=== PATIENT | female | born 1950 | race Caucasian/White ===

== ENCOUNTER → 2017-12-01 10:11 | Outpatient (CLI) | payer MEDICARE, OTHER, SELFPAY ==
--- NOTE | 2017-12-01 10:18 | NVE_ITS ---
Venous Exam Indications: 729.5 Pain in limb. IMPRESSIONS 1. There is no evidence of significant Reflux. 2. Deep vein thrombosis involving the Left gastrocnemius Left lower extremity venous duplex evaluation. Doppler flow study including spectral analysis, color and potter scale imaging. Location: Vascular laboratory. Patient status: Outpatient. CRITICAL FINDINGS - Reported to: IKER Hollis back and verified. - 12/01/17 - 1050 - DVT - . Tables: Venous flow and imaging: + + + + Location Overall Flow properties + + + + Left common femoral Patent Normal phasicity; spontaneous; normal augmentation; compressible + + + + Left saphenofemoral Patent Compressible junction + + + + Left profunda femoral Patent Compressible + + + + Left femoral Patent Normal phasicity; spontaneous; normal augmentation; compressible + + + + Left greater saphenous Patent Normal phasicity; spontaneous; normal augmentation; compressible + + + + Left popliteal Patent Normal phasicity; spontaneous; normal augmentation; compressible + + + + Left posterior tibial Patent Compressible + + + + Left peroneal Patent Compressible + + + + Left gastrocnemius Partially occluded Partially compressible + + + + Left soleal Patent Compressible + + + + (Report amended ) Electronically signed by: Reji Crews [id number]
== END ==
PROVIDERS: PCP Family Medicine; Visit Provider Family Medicine
DX: M79.605 Pain in left leg (principal)
CPT/HCPCS: 93971

== ENCOUNTER → 2017-12-30 12:18 | Outpatient (CLI) | payer MEDICARE, OTHER, SELFPAY ==
[2017-12-30 12:22] LABS: Microscopic, Urine URINE MICROSCOPIC (MICROSCOPIC)
[2017-12-30 12:33] LABS: Appearance,Urine CLEAR (Clear); Bilirubin,Urine Negative (Negative); Blood, Urine TRACE-I (Negative); Color,Urine YELLOW (Yellow); Glucose,Urine (UA) Negative (Negative); Ketones,Urine Negative (Negative); Leukocyte Esterase,Urine TRACE (Negative); Nitrate,Urine POSITIVE (Negative); Protein,Urine Negative (Negative); Specific Gravity, Urine 1.015 (1.005-1.030); Urobilinogen,Urine 0.2 EU/dl (0.2)
[2017-12-30 12:40] LABS: Bacteria,Urine 2+ /lpf
== END ==
PROVIDERS: Visit Provider Family Medicine
DX: R35.0 Frequency of micturition (principal)
CPT/HCPCS: 81001; 87086

== ENCOUNTER → 2018-01-06 10:45 | Outpatient (CLI) | payer MEDICARE, OTHER, SELFPAY ==
--- NOTE | 2018-01-06 | NVE_ITS ---
Venous Exam IMPRESSIONS 1. No evidence of deep or superficial vein thrombosis involving the left lower extremity 2. Gastrocnemius DVT seen in [facility] 12/01/17 has resolved. History: PMH: Deep vein thrombosis. Deep vein thrombosis. Patient had a DVT in 12/01/17 in [facility] gastrocnemius. Today's study is a followup. Medications: Heparin daily. Left lower extremity venous duplex evaluation. Doppler flow study including spectral analysis, color and potter scale imaging. Location: Vascular laboratory. Patient status: Outpatient. Tables: Venous flow and imaging: + +-------+ + Location Overall Flow properties + +-------+ + Left common femoral Patent Normal phasicity; spontaneous; normal augmentation; compressible + +-------+ + Left saphenofemoral junction Patent Compressible + +-------+ + Left profunda femoral Patent Compressible + +-------+ + Left femoral Patent Normal phasicity; spontaneous; normal augmentation; compressible + +-------+ + Left greater saphenous Patent Normal phasicity; spontaneous; normal augmentation; compressible + +-------+ + Left popliteal Patent Normal phasicity; spontaneous; normal augmentation; compressible + +-------+ + Left posterior tibial Patent Compressible + +-------+ + Left peroneal Patent Compressible + +-------+ + Left gastrocnemius Patent Compressible + +-------+ + Left soleal Patent Compressible + +-------+ + (Report amended ) Electronically signed by: Reji Crews [id number]
== END ==
PROVIDERS: PCP Family Medicine; Visit Provider Internal Medicine
DX: M79.605 Pain in left leg (principal)
CPT/HCPCS: 93971

== ENCOUNTER → 2018-01-30 10:20 | Outpatient (CLI) | payer MEDICARE, OTHER, SELFPAY ==
--- NOTE | 2018-01-30 10:23 | XR_ITS ---
XR femur RT 2V CLINICAL INDICATION: Follow-up fracture ITS.REASON: S/P FEMUR FRACTURE/ ORDERING PHYSICIAN: Masoud Carreon MD PATIENT AGE: 67 years Comparison: 01/09/2016 FINDINGS: Intramedullary brisa remains in place. There is fracture of the distal to screws stabilizing the brisa. This was demonstrated on 01/21/2018 exam the right appears to have moved distally within the femur compared to the exam of 01/09/2016 probably stable compared to 01/21/2018. The distal most screw is x 11 mm. Femur fracture is showing some signs of healing with some callus formation. Fracture line however is still visible. There is 11 mm medial and 6 mm dorsal displacement of the distal fracture fragment. IMPRESSION: Status post placement of an intramedullary brisa stabilizing a proximal femoral healing shaft fracture with fracture of the 2 stabilizing screws distally within the right as described above
== END ==
PROVIDERS: PCP Family Medicine; Visit Provider Orthopaedic Surgery
DX: T85.848A Pain due to other internal prosthetic devices, implants and grafts, initial encounter (principal)
CPT/HCPCS: 73552

== ENCOUNTER → 2018-03-19 14:29 | Outpatient (CLI) | payer MEDICARE, OTHER, SELFPAY ==
--- NOTE | 2018-03-19 14:30 | CT_ITS ---
CT femur RT wo con INDICATION: Follow-up femur fracture, nonunion ITS.REASON: rt femur non union ORDERING PHYSICIAN: Masoud Carreon MD PATIENT AGE: 67 years COMPARISON: 01/30/2018 TECHNIQUE: Axial images are obtained without contrast. Sagittal and coronal reformatted images are reviewed as well. All CT scans at the facility use one or more dose reduction, viz: automated exposure control, ma/kV adjustment per patient size (including targeted exams where dose is matched to indication, i.e. head), or iterative reconstruction technique. FINDINGS: Axial images are obtained of the right femur. There has been placement of intramedullary brisa stabilizing a mid to proximal femur shaft fracture. The brisa has migrated distally with fracture of the 2 distal transverse screws. The most distal screw fragments by approximately 1 cm. The intramedullary brisa appears intact The 2 proximal screws within the intramedullary brisa have an unremarkable appearance. There is persistent fracture line noted at the fracture site. Fracture margins are well-circumscribed. No bridging callus formation is evident. There is 7 mm medial and posterior displacement of the distal fracture fragment. There is fracture of the 2 distal transverse screws. The most distal screw fragments are x 7 mm. The lateral screw fragment is distracted away from the cortex laterally x 5 mm. The distal aspect of the intramedullary brisa rests just at the subcortical region at the intercondylar area of the distal femur and does not appear to have disrupted through the cortex. No soft tissue masses or abnormal fluid collection. Incidental note is made of rectal prolapse. IMPRESSION: 1. There does NOT appear to be bony union of the proximal to mid shaft femur fracture. The distal fracture fragment is displaced medially and posteriorly x 7 mm 2. The intramedullary brisa has migrated distally with fracture of the 2 distal transverse screws. Screws are by approximately 7 mm. 3. The distal most aspect of the intramedullary brisa is just deep to the subcortical region of the intercondylar area of the distal femur and does NOT appear to have disrupted into the joint
== END ==
PROVIDERS: PCP Family Medicine; Visit Provider Orthopaedic Surgery
DX: T85.848A Pain due to other internal prosthetic devices, implants and grafts, initial encounter (principal)
CPT/HCPCS: 73700

== ENCOUNTER 2018-04-07 09:00 | Outpatient (RCR) | payer MEDICARE, OTHER, SELFPAY | END 2018-04-07 09:01 | disposition home or self-care (01) | LOC: PT 09:00 | PROVIDERS: PCP Family Medicine; Visit Provider Orthopaedic Surgery | DX: S72.301A Unspecified fracture of shaft of right femur, initial encounter for closed fracture (principal) | CPT/HCPCS: 97010; 97014; 97033; 97035; 97110; 97140; 97163; G0283 ==

== ENCOUNTER → 2018-05-26 09:39 | Outpatient (POV) | payer MEDICARE, OTHER, SELFPAY | PROVIDERS: PCP Family Medicine; Visit Provider Dermatology | DX: Z00.00 Encounter for general adult medical examination without abnormal findings (principal) ==

== ENCOUNTER 2018-07-07 10:00 | Outpatient (RCR) | payer MEDICARE, OTHER, SELFPAY | END 2018-07-07 10:05 | disposition home or self-care (01) | LOC: PT 10:00 | PROVIDERS: Visit Provider Physician Assistant Medical | DX: S72.91XK Unspecified fracture of right femur, subsequent encounter for closed fracture with nonunion (principal) | CPT/HCPCS: 97010; 97014; 97110; 97163; G0283 ==

== ENCOUNTER → 2018-07-10 09:32 | Outpatient (CLI) | payer MEDICARE, OTHER, SELFPAY ==
--- NOTE | 2018-07-10 09:35 | MM_ITS ---
MM Dig screening mamm BI w/CAD CAD Screening COMPARISON: Digital mammograms with CAD 06/20/2017 and 06/18/2016 INDICATION: There is a history of breast cancer patient maternal grandmother. TECHNIQUE: Standard CC and MLO images were obtained. R2 CAD reviewed. FINDINGS: Moderate heterogenic fibroglandular densities are seen in the central portions of both breasts. There is very slight inversion of the nipple right breast but this was seen previously and is stable. There are few scattered benign-appearing calcifications in each breast. There is no suspicious lesion and there are no suspicious microcalcifications. IMPRESSION: Stable exam with no suspicious lesion seen BI-RADS Category: 2 Benign Finding(s) RECOMMENDED FOLLOW-UP: 1YR - 1 YEAR FOLLOW-UP (A letter has been sent to the patient regarding results of the study.)
== END ==
PROVIDERS: PCP Family Medicine; Visit Provider Nurse Practitioner Obstetrics & Gynecology
DX: Z12.31 Encounter for screening mammogram for malignant neoplasm of breast (principal)
CPT/HCPCS: 77067

== ENCOUNTER → 2018-11-23 14:29 | Outpatient (CLI) | payer MEDICARE, OTHER, SELFPAY ==
--- NOTE | 2018-11-23 14:35 | XR_ITS ---
XR knee RT 3V HISTORY: ITS.REASON: RT KNEE PAIN ORDERING PHYSICIAN: Guillaume Dietz MD PATIENT AGE: 68 years COMPARISON: 01/21/2018 FINDINGS: There is an intramedullary brisa in place. There has been interval removal of the lateral aspect of the screws within the distal intramedullary brisa. The intramedullary brisa have or appears to have drifted more distally now projecting past the articular surface of the intercondylar notch. No acute fracture or dislocation. The joint spaces are well-preserved. There is a lucency in the proximal tibia which may be due to prior surgery. IMPRESSION: Postsurgical changes with removal of the lateral screws of the intramedullary brisa. The medial portion of the screws remain in place. The intramedullary brisa appears to have shifted more distally with the tip projecting in the knee joint itself at the intercondylar groove
== END ==
PROVIDERS: PCP Family Medicine; Visit Provider Family Medicine
DX: M25.561 Pain in right knee (principal)
CPT/HCPCS: 73562

== ENCOUNTER → 2019-01-12 09:23 | Outpatient (POV) | payer MEDICARE, OTHER, SELFPAY | PROVIDERS: Visit Provider Dermatology | DX: Z00.00 Encounter for general adult medical examination without abnormal findings (principal) ==

== ENCOUNTER 2019-01-27 09:00 | Outpatient (RCR) | payer MEDICARE, OTHER, SELFPAY | END 2019-01-27 09:05 | disposition home or self-care (01) | LOC: PT 09:00 | PROVIDERS: Visit Provider Orthopaedic Surgery Orthopaedic Trauma | DX: S72.90XA Unspecified fracture of unspecified femur, initial encounter for closed fracture (principal) | CPT/HCPCS: 97010; 97014; 97110; 97140; 97163; G0283 ==

== ENCOUNTER 2019-04-25 19:20 | Inpatient (IN) ==
[2019-04-25 19:47] LABS: Lymphocytes # 1.3 K/mm3 (0.7-4.5); Monocytes # 0.7 K/mm3 (0.1-1.0)
[2019-04-25 19:52] LABS: Basophils % 0.3 % (0.1-2.0); Eosinophils % 0.3 % (0.1-12.0); Lymphocytes % 11.1 % (10-50); Mean Corpuscular HGB Conc 30.8 g/dL (31.8-35.4); Mean Corpuscular Volume 94.6 fl (81-99); Monocytes % 6.3 % (1.7-9.3); Neutrophils # 9.6 K/mm3 (1.8-7.8); Neutrophils % 82.1 % (37.0-80.0); Platelet Count 265 K/mm3 (142-424); Red Blood Count 2.53 M/mm3 (4.20-5.40); Red Cell Distribution Width 14.6 % (11.5-17.5); White Blood Count 11.7 K/mm3 (4.8-10.8)
[2019-04-25 19:58] LABS: INR 1.26 (0.9-1.1)
--- NOTE | 2019-04-25 19:58 | Emergency Department Note ---
ED Disposition Clinical Impression: Atypical chest pain, Blood loss anemia Disposition: Still a Patient Condition on Discharge: Fair Additional Instructions: care transferred to Dr. Garcia at end of shift Referrals: Guillaume Dietz MD [Primary Care Provider] - Time of Disposition: 20:09 - Critical Care Critical Care Time: No Attestation: On 04/25/19, the high probability of a clinically significant, sudden or life threatening deterioration of the following system(s) required my full and direct attention, intervention and personal management. The time I documented below is in addition to time spent performing reported procedures but includes the following listed in this critical care notation. Medical Decision Making - Medical Records Medical records reviewed: Yes: I reviewed the patient's medical records. - [place] Inquiry Pt receiving controlled substance: No [place] was queried for this patient: No Vital Signs: 04/25/19 19:27 Temperature 98.0 F Temperature Source Oral Pulse Rate [Right] 88 Respiratory Rate 16 Blood Pressure [Right Arm] 134/63 Blood Pressure Mean [Right Arm] 86 Blood Pressure Source [Right Arm] Automatic Cuff Blood Pressure Position [Right Arm] Supine 02 Sat by Pulse Oximetry 97 Oxygen Delivery Method Room Air - Lab Data Lab results reviewed: Yes: I reviewed the patient's lab results. Lab Results 04/25/19 19:35: WBC 11.7 H, RBC 2.53 L, Hgb 7.4 L*, Hct 24.0 L, MCV 94.6, MCH 29.2, MCHC 30.8 L, RDW 14.6, Plt Count 265, MPV 9.0, Neut % (Auto) 82.1 H, Lymph % (Auto) 11.1, [place] % (Auto) 6.3, Eos % (Auto) 0.3, Baso % (Auto) 0.3, Neut # (Auto) 9.6 H, Lymph # (Auto) 1.3, [place] # (Auto) 0.7, Eos # (Auto) 0.0, Baso # (Auto) 0.0 Result diagrams: 04/25/19 19:35 Orders (Tests/Meds): ED MEDICATIONS Generic Name Dose Route Start Last Admin Trade Name Freq PRN Reason Stop Dose Admin Sodium Chloride 1,000 mls @ 999 mls/hr 04/25/19 19:45 04/25/19 19:49 Sod Chlor 0.9% 1000ml Bag IV 04/25/19 20:45 999 mls/hr .Q1H1M TROY Administration Sodium Chloride 8 ml 04/25/19 19:37 04/25/19 19:49 Sodium Chloride 0.9% 10ml Vial IV 05/25/19 19:36 8 ml NEEDED PRN Administration dilute pepcid Discontinued Medications Generic Name Dose Route Start Last Admin Trade Name Freq PRN Reason Stop Dose Admin Famotidine 20 mg 04/25/19 19:37 04/25/19 19:48 Pepcid 20mg/2ml Vial IV 04/25/19 19:38 20 mg ONCE ONE Administration Metoclopramide HCl 10 mg 04/25/19 19:37 04/25/19 19:48 Reglan 10mg/2ml Vial IVP 04/25/19 19:38 10 mg ONCE ONE Administration Ondansetron HCl 4 mg 04/25/19 19:37 04/25/19 19:48 Zofran 4mg/2ml Vial IV 04/25/19 19:38 4 mg ONCE ONE Administration ORDERS Category Date Time Status Chest XR 2 view (NOT portable) [XR chest 2V] Stat Exams 04/25/19 19:58 Ordered Basic Metabolic Panel Stat Lab 04/25/19 19:35 Received PT INR [Prothrombin Time INR] Stat Lab 04/25/19 19:35 Received Rapid Strep Scrn Group A [Strep Scrn Group A (Rapid)] Lab 04/25/19 19:50 Received Stat Troponin I Stat Lab 04/25/19 19:35 Received Chest Pain HPI - General Chief Complaint: Chest Pain Stated Complaint: Surg Chest Burning, Time Seen by Provider: 04/25/19 19:50 Mode of Arrival: Ambulatory Limitations: No Limitations Description of Symptoms (Recalled from ER Triage Doc. by RN): Pt states she has burning in her chest radiating to throat, dc'd from yesterday from surgical procedure to right leg - History of Present Illness HPI narrative: Pt had surgery on right leg at on Friday to remove all hardware from surgery done 4 years ago and new hardware put back in. She has been on Warfarin for about 1 1/2 years for blood clots in legs...never told she had PEs Now with some burning sensation in chest and concerned her Blood count maybe low but no histoyr of excessive bleeding and no history of PE's Onset (ago): day(s) Duration: constant Activity at onset: during rest Pain location: substernal (burning type of pain) - Related Data Home Medications Medication Instructions Recorded Confirmed calcium [id number] 1 tab PO DAILY 12/31/17 04/25/19 [id number] 250 mg calcium-500 unit tablet cholecalciferol (vitamin D3) 2,000 2,000 unit PO ONCE 12/31/17 04/25/19 unit capsule diclofenac sodium 75 mg 75 mg PO DAILY 90 Days 12/31/17 04/25/19 tablet,delayed release glucosamine sulfate 500 mg tablet 1,000 mg PO BID 12/31/17 04/25/19 levothyroxine 25 mcg tablet 25 mcg PO DAILY 90 Days tab 12/31/17 04/25/19 melatonin 10 mg capsule 10 mg PO HS PRN 12/31/17 04/25/19 multivitamin with minerals tablet 1 tab PO ONCE 12/31/17 04/25/19 pravastatin 40 mg tablet 40 mg PO DAILY 90 Days tab 12/31/17 04/25/19 propranolol 80 mg tablet 40 mg PO DAILY 30 Days tab 12/31/17 04/25/19 vitamin B complex tablet 1 tab PO QAM 12/31/17 04/25/19 warfarin 5 mg tablet 5 mg PO DAILY 30 Days tab 12/31/17 04/25/19 diclofenac 1 % topical gel 4 g TOPICAL QID 02/01/19 04/25/19 Enoxaparin Sodium [Lovenox 75 mg SQ DAILY 03/23/19 04/25/19 150mg/mL syringe] Previous Rx's Medication Instructions Recorded urea 39 % topical cream 39 % TOPICAL BID #227 g 02/01/19 Allergies Allergy/AdvReac Type Severity Reaction Status Date / Time morphine [MORPHINE] Allergy Mild Verified 03/29/19 07:54 Sulfa (Sulfonamide Allergy Mild Verified 03/29/19 07:54 Antibiotics) [SULFA (SULFONAMIDE ANTIBIOTICS)] PCN Allergy Mild Uncoded 02/16/18 09:[address] [facility] History - Hepatitis A Screen Drug use history?: No High risk sexual behaviors?: No History of sexually transmitted infection?: No Currently employed?: No Childcare worker?: No Do you have indoor plumbing?: Yes Do you have electricity?: Yes Attestation statement:: This patient has been screened for Hepatitis A risk factors. I have reviewed the patient's past medical history: Yes Medical History: Reports:: Anxiety, Deep Vein Thrombosis, Hyperlipidemia, Kidney Stones, Migraine Denies:: Cancer, Diabetes Mellitus Type 1, Diabetes Mellitus Type 2, Internal Pacemaker, Lung Disease, MRSA, Seizures Laterality Cases: Right: Other, Bilateral: Tonsillectomy Other Surgeries: Yes: Colonoscopy, Hysterectomy-Total, Other. No: Pacemaker Amputation: No Fractures: Yes (L femur (brisa in place)) Comment: Bladder tack x2, right leg - Social History Smoking Status: Never smoker Alcohol Intake: never Substance Use Type: denies use Occupational Status: retired Housing: house Household Members: spouse - Psychiatric History Pschychiatric History:: Reports:: Anxiety Family Hx:: Unable to obtain ROS Obtained: Yes All systems reviewed & no additional complaints - Constitutional Constitutional: Reports system reviewed and no additional complaints, except as docu - Cardiovascular Cardiovascular: Reports system reviewed and no additional complaints, except as docu, Reports as per HPI - Respiratory Respiratory: Yes system reviewed and no additional complaints, except as docu, Yes as per HPI, Yes dyspnea, Yes other (burning sensation in chest) - Musculoskeletal Musculoskeletal: Reports system reviewed and no additional complaints, except as docu, Reports as per HPI (recent surgery right leg) Physical Exam - General General appearance: alert, in no apparent distress - Head Head exam: atraumatic - Eye Eye exam: Present: normal appearance - ENT ENT exam: Present: normal exam - Neck Neck exam: Present: normal inspection - Chest Chest inspection: Present: normal inspection - Respiratory Respiratory exam: Present: normal lung sounds bilaterally - Cardiovascular Cardiovascular exam: Present: regular rate - Abdominal Exam Abdominal exam: Present: soft - Extremities Exam Extremities exam: Present: tenderness, other (swelling of femur where surgery was) - Neurological Exam Neurological exam: Present: alert, oriented X3 - Psychiatric Psychiatric exam: Present: normal affect
[2019-04-25 19:59] LABS: Hemoglobin 7.4 g/dL (12.2-16.2)
[2019-04-25 20:04] LABS: Anion Gap 11.5 mEq/L (5-15); Blood Urea Nitrogen 23 mg/dL (7-18); Calcium 10.7 mg/dL (8.5-10.1); Carbon Dioxide 27 mmol/L (21.0-32.0); Chloride 100 mmol/L (98-107); Glucose 131 mg/dL (74-106); Sodium 135 mmol/L (136-145)
[2019-04-25 23:07] LABS: Basophils % 0.2 % (0.1-2.0); Eosinophils % 0.3 % (0.1-12.0); Lymphocytes # 1.1 K/mm3 (0.7-4.5); Lymphocytes % 10.6 % (10-50); Mean Corpuscular HGB Conc 31.6 g/dL (31.8-35.4); Mean Corpuscular Volume 93.8 fl (81-99); Mean Platelet Volume 8.5 fl (7.4-10.4); Monocytes # 0.6 K/mm3 (0.1-1.0); Monocytes % 6.3 % (1.7-9.3); Neutrophils # 8.1 K/mm3 (1.8-7.8); Neutrophils % 82.7 % (37.0-80.0); Platelet Count 194 K/mm3 (142-424); Red Blood Count 2.28 M/mm3 (4.20-5.40); Red Cell Distribution Width 14.7 % (11.5-17.5); White Blood Count 9.9 K/mm3 (4.8-10.8)
[2019-04-25 23:08] LABS: Hemoglobin 6.7 g/dL (12.2-16.2)
[2019-04-25 23:09] LABS: Hematocrit 21.3 % (37.0-47.0)
[2019-04-26 06:58] LABS: Basophils % 0.4 % (0.1-2.0); Eosinophils % 0.3 % (0.1-12.0); Hematocrit 28.4 % (37.0-47.0); Lymphocytes # 2.3 K/mm3 (0.7-4.5); Lymphocytes % 22.4 % (10-50); Mean Corpuscular HGB Conc 30.9 g/dL (31.8-35.4); Mean Corpuscular Volume 92.7 fl (81-99); Monocytes # 0.8 K/mm3 (0.1-1.0); Monocytes % 7.5 % (1.7-9.3); Neutrophils % 69.3 % (37.0-80.0); Platelet Count 224 K/mm3 (142-424); Red Blood Count 3.07 M/mm3 (4.20-5.40); Red Cell Distribution Width 15.9 % (11.5-17.5); White Blood Count 10.1 K/mm3 (4.8-10.8)
[2019-04-26 07:02] LABS: INR 1.19 (0.9-1.1); Prothrombin Time 12.3 seconds (9.4-11.8)
[2019-04-26 07:08] LABS: Albumin Level 2.5 gm/dL (3.4-5.0); Albumin/Globulin Ratio 0.7 (1.1-1.8); Anion Gap 11.7 mEq/L (5-15); Bilirubin,Total 0.8 mg/dL (0.2-1.0); Globulin 3.4 gm/dl (1.3-3.2); Total Protein,Serum 5.9 gm/dL (6.4-8.2)
[2019-04-26 07:18] LABS: Hemoglobin 8.7 g/dL (12.2-16.2)
[2019-04-26 07:31] LABS: Calcium 9.3 mg/dL (8.5-10.1)
--- NOTE | 2019-04-26 07:33 | Pharmacy Consult Notes ---
[facility] Pharmacy VTE Monitoring - Patient Demographics Admission date: 04/25/19 Report Date: 04/26/19 Time: 07:33 Allergies/Adverse Reactions: Patient Allergies morphine [MORPHINE] Allergy (Mild, Verified 03/29/19 07:54) Sulfa (Sulfonamide Antibiotics) [SULFA (SULFONAMIDE ANTIBIOTICS)] Allergy (Mild, Verified 03/29/19 07:54) PCN Allergy (Mild, Uncoded 02/16/18 09:58) Height: 1.6 m Weight: 70.108 kg Patient Problems: Current Active Problems (This Medical Record has been edited. Action required.) Atypical chest pain (Acute) Blood loss anemia (Acute) Chest pain (Acute) - VTE Risk Labs: VTE Related Lab Results Hgb 8.7 g/dL (12.2-16.2) L D 04/26/19 06:42 Hct 28.4 % (37.0-47.0) L 04/26/19 06:42 Plt Count 224 K/mm3 (142-424) 04/26/19 06:42 PT 12.3 seconds (9.4-11.8) H 04/26/19 06:42 INR 1.19 (0.9-1.1) H 04/26/19 06:42 BUN 17 mg/dL (7-18) D 04/26/19 06:42 Creatinine 0.84 mg/dL (0.55-1.02) D 04/26/19 06:42 Estimated Creat Clear 58 mL/min (50-200) 04/26/19 06:42 VTE Score: 4 VTE Risk Level: Low Risk - Prophylaxis VTE Prophylaxis Ordered?: Yes Types of VTE Prophylaxis: Pharmacological Pharmacologic Type: Enoxaparin - VTE Diagnosis Confirmed Treatment or plan recommended: Continue Current Treatment
--- NOTE | 2019-04-26 09:06 | History & Physical Report ---
*Admission Date: 04/25/19 <Trinh Hurley 04/26/19 09:18> *Chief complaint: Chest pain and shortness of breath <Trinh Hurley 04/26/19 09:18> *History of present illness: Ms. Moss is a 68-year-old female with a history of previous DVTs, kidney stones, migraines and anxiety who presented to [facility] emergency room yesterday with burning upper respiratory discomfort and shortness of breath. She states she was discharged from Hospital the previous day after having right hip surgery with replacement of hardware in the right hip. They felt she was doing very well so she was discharged the following day after her surgery on 04/23/2019. She began to experience the burning in her chest on the day of discharge from which continued despite multiple antiacids. She has not been eating well. When she began to feel short of breath her daughter insisted that she come to the emergency room for evaluation. With evaluation in the emergency room CTA of the chest revealed pulmonary embolism and she was admitted for further evaluation and treatment. Also she was found to be profoundly anemic and was given 2 units of packed red blood cells. This morning she states she slept well. She had no further burning until getting up and going to the bathroom this a.m. She is dyspneic with exertion. She still does not feel like eating but denies nausea and vomiting. <Trinh Hurley 04/26/19 09:18> [facility] History Medical History: Reports:: Anxiety, Deep Vein Thrombosis, Gastroesophageal Reflux Disease(GERD), Hyperlipidemia, Kidney Stones, Migraine Denies:: Cancer, Diabetes Mellitus Type 1, Diabetes Mellitus Type 2, Internal Pacemaker, Lung Disease, MRSA, Seizures <Trinh Hurley 04/26/19 09:18> *Have you ever received a pneumonia vaccine?: Yes <Trinh Hurley 04/26/19 09:18> *Have you received a flu vaccine this season?: Yes <Trinh Hurley 04/26/19 09:18> Other Medical History: Reports: Hypothyroidism <Trinh Hurley 04/26/19 09:18> Laterality Cases: Right: Other, Bilateral: Tonsillectomy <Trinh Hurley 04/26/19 09:18> Other Surgeries: Yes: Colonoscopy, Hysterectomy-Total, Other (BLADDER TACK X2). No: Pacemaker <XaviTrinh 04/26/19 09:18> Amputation: No <HurleyTrinh 04/26/19 09:18> Fractures: Yes (R femur (brisa in place)) <Alayna Hurleyhy 04/26/19 09:18> - *Social History Educational Level: Completed High School <HurleyTrinh 04/26/19 09:18> Smoking Status: Never smoker <HurleyTrinh 04/26/19 09:18> Alcohol Intake: never <XaviTrinh 04/26/19 09:18> Substance Use Type: denies use <HurleyTrinh 04/26/19 09:18> *Occupational Status:: retired <HurleyTrinh 04/26/19 09:18> Housing: house <XaviTrinh 04/26/19 09:18> Household Members: spouse <XaviTrinh 04/26/19 09:18> *Travel in the last 8 weeks: None <HurleyTrinh 04/26/19 09:18> - Psychiatric History Pschychiatric History:: Reports:: Anxiety <HurleyTrinh 04/26/19 09:18> Family Hx:: Cancer <HurleyTrinh 04/26/19 09:18> Review of Systems - Constitutional Denies chills, Denies fever(s), Denies headache(s) <Hurley,Trinh 04/26/19 09:18> - ENT Reports post nasal drip, Denies ear pain, Denies nasal congestion, Denies nasal discharge, Denies sore throat <Hurley,Trinh 04/26/19 09:18> - *Cardiovascular Reports chest pain, Reports shortness of breath, Denies generalized swelling <Hurley,Trinh 04/26/19 09:18> - *Respiratory Reports shortness of breath, Reports shortness of breath with activity, Denies chest congestion, Denies cough <HurleyTrinh genao 04/26/19 09:18> - *Gastrointestinal Reports heartburn, Reports heartburn, Denies abdominal pain, Denies change in bowel habits, Denies change in stools, Denies constipation, Denies loose stools, Denies vomiting blood, Denies nausea, Denies vomiting <Trinh Hurley - 04/26/19 09:18> - *Genitourinary Denies difficulty starting urination, Denies urinary incontinence <Trinh Hurley - 04/26/19 09:18> - *Musculoskeletal Reports abnormal walking <Trinh Hurley - 04/26/19 09:18> Comments: Can be weightbearing as tolerated. Has been using her walker and ambulating without difficulty. <Trinh Hurley - 04/26/19 09:18> - *Neurologic Reports abnormal walking (Due to recent surgery) <Trinh Hurley - 04/26/19 09:18> Meds Home Medications Medication Instructions Recorded Confirmed Type calcium [id number] 1 tab PO BID 12/31/17 04/25/19 History [id number] 250 mg calcium-500 unit tablet cholecalciferol (vitamin D3) 2,000 2,000 unit PO ONCE 12/31/17 04/25/19 History unit capsule diclofenac sodium 75 mg 75 mg PO DAILY 90 Days 12/31/17 04/25/19 History tablet,delayed release glucosamine sulfate 500 mg tablet 1,000 mg PO BID 12/31/17 04/25/19 History levothyroxine 25 mcg tablet 25 mcg PO DAILY 90 Days tab 12/31/17 04/25/19 History melatonin 10 mg capsule 10 mg PO HS PRN 12/31/17 04/25/19 History multivitamin with minerals tablet 1 tab PO ONCE 12/31/17 04/25/19 History pravastatin 40 mg tablet 40 mg PO DAILY 90 Days tab 12/31/17 04/25/19 History propranolol 80 mg tablet 40 mg PO DAILY 30 Days tab 12/31/17 04/25/19 History vitamin B complex tablet 1 tab PO QAM 12/31/17 04/25/19 History warfarin 5 mg tablet 5 mg PO DAILY 30 Days tab 12/31/17 04/25/19 History diclofenac 1 % topical gel 4 g TOPICAL QID 02/01/19 04/25/19 History urea 39 % topical cream 39 % TOPICAL BID #227 g 02/01/19 04/25/19 Rx Enoxaparin Sodium [Lovenox 75 mg SQ DAILY 03/23/19 04/25/19 History 150mg/mL syringe] <Luray,Guillaume - 04/26/19 09:51> Allergies Allergy/AdvReac Type Severity Reaction Status Date / Time morphine [MORPHINE] Allergy Mild Unknown Verified 04/26/19 07:56 allergy reaction Penicillins Allergy Mild Unknown Verified 04/26/19 07:56 allergy reaction Sulfa (Sulfonamide Allergy Mild Unknown Verified 04/26/19 07:56 Antibiotics) allergy [SULFA (SULFONAMIDE reaction ANTIBIOTICS)] <Guillaume Dietz - 04/26/19 09:51> Exam Vital signs and Labs for Last 24 Hours: Temp Pulse Resp BP Pulse Ox 98.5 F 102 H 20 115/62 97 04/26/19 08:07 04/26/19 08:07 04/26/19 08:07 04/26/19 08:07 04/26/19 08:07 Laboratory Results - last 24 hr 04/25/19 19:35: WBC 11.7 H, RBC 2.53 L, Hgb 7.4 L*, Hct 24.0 L, MCV 94.6, MCH 29.2, MCHC 30.8 L, RDW 14.6, Plt Count 265, MPV 9.0, Neut % (Auto) 82.1 H, Lymph % (Auto) 11.1, [place] % (Auto) 6.3, Eos % (Auto) 0.3, Baso % (Auto) 0.3, Neut # (Auto) 9.6 H, Lymph # (Auto) 1.3, [place] # (Auto) 0.7, Eos # (Auto) 0.0, Baso # (Auto) 0.0 04/25/19 19:35: Sodium 135 L, Potassium 3.5, Chloride 100, Carbon Dioxide 27, Anion Gap 11.5, BUN 23 H, Creatinine 1.25 H, Estimated Creat Clear 46, Estimated GFR 42 L, Est GFR ( Amer) 51 L, Glucose 131 H, Calcium 10.7 H, Troponin I < 0.02 04/25/19 19:35: PT 13.0 H, INR 1.26 H 04/25/19 19:50: Group A Strep Rapid Negative 04/25/19 20:40: Stool Occult Blood Negative 04/25/19 21:30: Blood Type A Positive, Antibody Screen Negative, Crossmatch (A HG) See Detail 04/25/19 21:45: Blood Type Confirm A Positive 04/25/19 21:45: WBC 9.9, RBC 2.28 L, Hgb 6.7 L*, Hct 21.3 L*, MCV 93.8, MCH 29.6, MCHC 31.6 L, RDW 14.7, Plt Count 194 D, MPV 8.5, Neut % (Auto) 82.7 H, Lymph % (Auto) 10.6, [place] % (Auto) 6.3, Eos % (Auto) 0.3, Baso % (Auto) 0.2, Neut # (Auto) 8.1 H, Lymph # (Auto) 1.1, [place] # (Auto) 0.6, Eos # (Auto) 0.0, Baso # (Auto) 0.0 04/26/19 06:42: WBC 10.1, RBC 3.07 L D, Hgb 8.7 L D, Hct 28.4 L, MCV 92.7, MCH 28.6, MCHC 30.9 L, RDW 15.9, Plt Count 224, MPV 9.0, Neut % (Auto) 69.3, Lymph % (Auto) 22.4, [place] % (Auto) 7.5, Eos % (Auto) 0.3, Baso % (Auto) 0.4, Neut # (Auto) 7.0, Lymph # (Auto) 2.3, [place] # (Auto) 0.8, Eos # (Auto) 0.0, Baso # (Auto) 0.0 04/26/19 06:42: Sodium 139, Potassium 3.7, Chloride 104, Carbon Dioxide 27, Anion Gap 11.7, BUN 17 D, Creatinine 0.84 D, Estimated Creat Clear 58, Estimated GFR 67, Est GFR ( Amer) 81 D, Glucose 101 D, Calcium 9.3 D, Magnesium 1.5, Total Bilirubin 0.8, AST 22, ALT 10 L, Alkaline Phosphatase 54, Total Protein 5.9 L, Albumin 2.5 L, Globulin 3.4 H, Albumin/Globulin Ratio 0.7 L 04/26/19 06:42: PT 12.3 H, INR 1.19 H <Luray,Guillaume - 04/26/19 09:51> Temp Pulse Resp BP Pulse Ox 98.5 F 102 H 20 115/62 97 04/26/19 08:07 04/26/19 08:07 04/26/19 08:07 04/26/19 08:07 04/26/19 08:07 Laboratory Results - last 24 hr 04/25/19 19:35: WBC 11.7 H, RBC 2.53 L, Hgb 7.4 L*, Hct 24.0 L, MCV 94.6, MCH 29.2, MCHC 30.8 L, RDW 14.6, Plt Count 265, MPV 9.0, Neut % (Auto) 82.1 H, Lymph % (Auto) 11.1, [place] % (Auto) 6.3, Eos % (Auto) 0.3, Baso % (Auto) 0.3, Neut # (Auto) 9.6 H, Lymph # (Auto) 1.3, [place] # (Auto) 0.7, Eos # (Auto) 0.0, Baso # (Auto) 0.0 04/25/19 19:35: Sodium 135 L, Potassium 3.5, Chloride 100, Carbon Dioxide 27, Anion Gap 11.5, BUN 23 H, Creatinine 1.25 H, Estimated Creat Clear 46, Estimated GFR 42 L, Est GFR ( Amer) 51 L, Glucose 131 H, Calcium 10.7 H, Troponin I < 0.02 04/25/19 19:35: PT 13.0 H, INR 1.26 H 04/25/19 19:50: Group A Strep Rapid Negative 04/25/19 20:40: Stool Occult Blood Negative 04/25/19 21:30: Blood Type A Positive, Antibody Screen Negative, Crossmatch (AHG) See Detail 04/25/19 21:45: Blood Type Confirm A Positive 04/25/19 21:45: WBC 9.9, RBC 2.28 L, Hgb 6.7 L*, Hct 21.3 L*, MCV 93.8, MCH 29.6, MCHC 31.6 L, RDW 14.7, Plt Count 194 D, MPV 8.5, Neut % (Auto) 82.7 H, Lymph % (Auto) 10.6, [place] % (Auto) 6.3, Eos % (Auto) 0.3, Baso % (Auto) 0.2, Neut # (Auto) 8.1 H, Lymph # (Auto) 1.1, [place] # (Auto) 0.6, Eos # (Auto) 0.0, Baso # (Auto) 0.0 04/26/19 06:42: WBC 10.1, RBC 3.07 L D, Hgb 8.7 L D, Hct 28.4 L, MCV 92.7, MCH 28.6, MCHC 30.9 L, RDW 15.9, Plt Count 224, MPV 9.0, Neut % (Auto) 69.3, Lymph % (Auto) 22.4, [place] % (Auto) 7.5, Eos % (Auto) 0.3, Baso % (Auto) 0.4, Neut # (Auto) 7.0, Lymph # (Auto) 2.3, [place] # (Auto) 0.8, Eos # (Auto) 0.0, Baso # (Auto) 0.0 04/26/19 06:42: Sodium 139, Potassium 3.7, Chloride 104, Carbon Dioxide 27, Anion Gap 11.7, BUN 17 D, Creatinine 0.84 D, Estimated Creat Clear 58, Estimated GFR 67, Est GFR ( Amer) 81 D, Glucose 101 D, Calcium 9.3 D, Magnesium 1.5, Total Bilirubin 0.8, AST 22, ALT 10 L, Alkaline Phosphatase 54, Total Protein 5.9 L, Albumin 2.5 L, Globulin 3.4 H, Albumin/Globulin Ratio 0.7 L 04/26/19 06:42: PT 12.3 H, INR 1.19 H <Trinh Hurley - 04/26/19 09:18> I & O for Last 24 hours: Intake & Output 04/23/19 04/24/19 04/25/19 04/26/19 23:59 23:59 23:59 23:59 Intake Total 1000 / 1000 610 / 610 Balance 1000 / 1000 610 / 610 Weight 154 lb 9 oz 154 lb 9 oz <Guillaume Dietz - 04/26/19 09:51> Intake & Output 04/23/19 04/24/19 04/25/19 04/26/19 11:59 11:59 11:59 11:59 Intake Total 1610 / 1610 Balance 1610 / 1610 Weight 154 lb 9 oz <Trinh Hurley - 04/26/19 09:18> Radiology Reports for the Last 24 Hours: Chest x-ray 04/25/2019 IMPRESSION: Stable chest Lungs clear Nothing definitely acute CTA of the chest 04/25/2019 IMPRESSION: 1.Minimal pulmonary embolism involving small vessels right lung base Pulmonary emboli/intraluminal thrombus involving segmental and subsegmental small pulmonary arteries at right lower lobe.. 2. Noncalcified lung nodule right lower lobe 8 x 5 mm but slightly bilobed configuration. . Suggest a follow-up CT chest in 4-6 months 3. Benign 6 mm calcified granuloma right lower lobe more laterally also noted <Trinh Hurley 04/26/19 09:18> - Constitutional no acute distress <Trinh Hurley 04/26/19 09:18> - *Routine HEENT Exam Head: Present: normocephalic, atraumatic <Trinh Hurley 04/26/19 09:18> Eye: Present: PERRL. Absent: conjunctival icterus, scleral injection <Trinh Hurley 04/26/19 09:18> ENT: Present: mucous membranes moist, oropharynx clear <Trinh Hurley 04/26/19 09:18> - *Routine Neck Exam Present: supple. Absent: carotid bruit, lymphadenopathy, thyromegaly, tenderness <Trinh Hurley 04/26/19 09:18> - Routine Chest/Breast/Axilla Exam Chest wall: Absent: tenderness <Trinh Hurley 04/26/19 09:18> - *Routine Respiratory Exam Present: CTA bilaterally (Anteriorly and posteriorly) <Trinh Hurley 04/26/19 09:18> - *Routine Cardiovascular Exam Present: RRR <Trinh Hurley 04/26/19 09:18> - *Routine Abdominal Exam Present: soft, normoactive bowel sounds. Absent: tenderness, distended <Trinh Hurley 04/26/19 09:18> - *Routine Extremities Exam Present: full ROM. Absent: edema, calf tenderness, palpable cord <Trinh Hurley 04/26/19 09:18> Comments: Dressing over right hip is clean and dry <Trinh Hurley 04/26/19 09:18> - *Routine Neurological Exam Present: alert, oriented X3 <Trinh Hurley 04/26/19 09:18> Assessment and Plan (1) Pulmonary emboli Current visit: Yes Status: Acute Category: Medical Code(s): I26.99 - Other pulmonary embolism without acute cor pulmonale (2) Blood loss anemia Current visit: Yes Status: Acute Category: Medical Code(s): D50.0 - Iron deficiency anemia secondary to blood loss (chronic) (3) Status post hip surgery Current visit: Yes Status: Acute Category: Surgical Code(s): Z98.890 - Other specified postprocedural states (4) History of DVT of lower extremity Current visit: Yes Status: Chronic Category: Medical Code(s): Z86.718 - Personal history of other venous thrombosis and embolism (5) Hypothyroidism Current visit: Yes Status: Chronic Category: Medical Code(s): E03.9 - Hypothyroidism, unspecified (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 Current visit: Yes Status: Chronic Category: Medical Code(s): Z79.01 - 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 <Guillaume Dietz - 04/26/19 09:51> (1) Pulmonary emboli Current visit: Yes Status: Acute Category: Medical Code(s): I26.99 - Other pulmonary embolism without acute cor pulmonale (2) Blood loss anemia Current visit: Yes Status: Acute Category: Medical Code(s): D50.0 - Iron deficiency anemia secondary to blood loss (chronic) (3) Status post hip surgery Current visit: Yes Status: Acute Category: Surgical Code(s): Z98.890 - Other specified postprocedural states (4) History of DVT of lower extremity Current visit: Yes Status: Chronic Category: Medical Code(s): Z86.718 - Personal history of other venous thrombosis and embolism (5) Hypothyroidism Current visit: Yes Status: Chronic Category: Medical Code(s): E03.9 - Hypothyroidism, unspecified (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 <Guillaume Dietz - 04/26/19 09:51> Venous Doppler studies of lower extremities. Patient has been started on Lovenox. Ambulation encouraged. Monitor H&H and respiratory status <Trinh Hurley - 04/26/19 09:24>
--- NOTE | 2019-04-26 15:37 | Electrocardiograph Report ---
APPROVED REPORT Exam: Resting ECG HR:75 bpm ECG Measurements Heart Rate 75 AXES MT 154 P 60 QRSd 86 QRS 50 QT 338 T266 QTc 377 <Conclusion> Normal sinus rhythm ST & T wave abnormality, consider inferolateral ischemia Abnormal ECG Electronically signed by : Timo Stroud, 04/26/2019 15:36:23
--- NOTE | 2019-04-26 19:42 | Cardiology Report ---
APPROVED REPORT Bilateral Lower Extremity Venous Study for DVT. Jewelry Model Maker: Carol Cleaning RVT Indications Lower Extremity Edema: Bilateral Pulmonary Embolism PE, Pt had brisa removed and replaced in right femur last Friday. Pt has dressing with MELY wrap around right thigh- scanned areas that were accessible. Risk Factors Prior Phlebitis/DVT Past History DVT : Medications Coumadin Vein Imaging CFV (R): compressive, spontaneous, phasic, augmentation FEM (R): compressive, spontaneous, phasic, augmentation POP (R): compressive, spontaneous, phasic, augmentation PTV (R): Compressible GSV (R): Compressible Peroneals (R):Compressible GAS (R): Compressible CFV (L): compressive, spontaneous, phasic, augmentation FEM (L): compressive, spontaneous, phasic, augmentation POP (L): compressive, spontaneous, phasic, augmentation PTV (L): Compressible GSV (L): Compressible Peroneals (L):Compressible GAS (L): Compressible Conclusion Negative for DVT/SVT Electronically signed by : Reji Crews MD 04/26/2019 19:41:37
[2019-04-27 07:32] LABS: INR 1.4 (0.9-1.1); Prothrombin Time 14.3 seconds (9.4-11.8)
[2019-04-27 07:37] LABS: Basophils # 0.1 K/mm3 (0-0.2); Basophils % 0.6 % (0.1-2.0); Eosinophils # 0.1 K/mm3 (0.0-0.4); Eosinophils % 1.2 % (0.1-12.0); Lymphocytes # 2.7 K/mm3 (0.7-4.5); Lymphocytes % 29.1 % (10-50); Mean Corpuscular HGB Conc 30.9 g/dL (31.8-35.4); Mean Corpuscular Volume 93.5 fl (81-99); Mean Platelet Volume 7.8 fl (7.4-10.4); Monocytes # 0.7 K/mm3 (0.1-1.0); Monocytes % 7.7 % (1.7-9.3); Neutrophils # 5.6 K/mm3 (1.8-7.8); Neutrophils % 61.4 % (37.0-80.0); Platelet Count 287 K/mm3 (142-424); Red Blood Count 2.68 M/mm3 (4.20-5.40); Red Cell Distribution Width 16.2 % (11.5-17.5); White Blood Count 9.1 K/mm3 (4.8-10.8)
[2019-04-27 07:41] LABS: Anion Gap 11.3 mEq/L (5-15)
[2019-04-27 07:53] LABS: Hemoglobin 7.7 g/dL (12.2-16.2)
[2019-04-27 07:54] LABS: Calcium 8.3 mg/dL (8.5-10.1)
--- NOTE | 2019-04-27 08:46 | Progress Note ---
<Trinh Hurley - Last Filed: 04/27/19 08:43> Internal Medicine - PN: Subj *Date: 04/27/19 *Time: 08:43 Interval history: Patient did not sleep well last night. She was unable to get comfortable in the bed. She sat up most of yesterday. She walks independently with her walker. Her appetite is poor. She denies nausea. She is voiding without problems. She has some right hip and leg soreness. She states she has had some leaking of blood around the right hip site. She has had no further shortness of breath or burning chest discomfort. Exam Vital signs and Labs for Last 24 Hours: Temp Pulse Resp BP Pulse Ox 98.0 F 78 18 111/53 L 97 04/27/19 04:00 04/27/19 04:00 04/27/19 04:00 04/27/19 04:00 04/27/19 04:00 Laboratory Results - last 24 hr 04/27/19 06:53: WBC 9.1, RBC 2.68 L, Hgb 7.7 L*, Hct 25.0 L, MCV 93.5, MCH 28.9, MCHC 30.9 L, RDW 16.2, Plt Count 287 D, MPV 7.8, Neut % (Auto) 61.4, Lymph % (Auto) 29.1, [place] % (Auto) 7.7, Eos % (Auto) 1.2, Baso % (Auto) 0.6, Neut # (Auto) 5.6, Lymph # (Auto) 2.7, [place] # (Auto) 0.7, Eos # (Auto) 0.1, Baso # (Auto) 0.1 04/27/19 06:53: PT 14.3 H, INR 1.40 H 04/27/19 06:53: Sodium 139, Potassium 3.3 L, Chloride 105, Carbon Dioxide 26, Anion Gap 11.3, BUN 17, Creatinine 0.86, Estimated Creat Clear 58, Estimated GFR 65, Est GFR ( Amer) 79, Glucose 96, Calcium 8.3 L D I & O for Last 24 hours: Intake & Output 04/24/19 04/25/19 04/26/19 04/27/19 11:59 11:59 11:59 11:59 Intake Total 1610 / 1610 742 / 742 Output Total 1100 / 1100 Balance 1610 / 1610 -358 / -358 Weight 154 lb 8.987 oz 154 lb 8.987 oz Radiology Reports for the Last 24 Hours: Bilateral lower extremity venous Doppler studies 04/26/2019 Conclusion Negative for DVT/SVT - Constitutional no acute distress Comments: Assisted up to bedside chair. She used her walker and had no difficulty. - *Routine Respiratory Exam Present: CTA bilaterally (Anteriorly and posteriorly) - *Routine Cardiovascular Exam Present: RRR - *Routine Abdominal Exam Present: soft, normoactive bowel sounds. Absent: tenderness - *Routine Extremities Exam Present: edema. Absent: calf tenderness - *Routine Skin Exam Present: erythema (Around anterior upper dressing site), warm, ecchymosis (Posterior right dressing site.) Comments: Old blood noted through dressing. - *Routine Neurological Exam Present: alert, oriented X3 Assessment and Plan (1) Pulmonary emboli Current visit: Yes Status: Acute Category: Medical Code(s): I26.99 - Other pulmonary embolism without acute cor pulmonale (2) Blood loss anemia Current visit: Yes Status: Acute Category: Medical Code(s): D50.0 - Iron deficiency anemia secondary to blood loss (chronic) (3) Status post hip surgery Current visit: Yes Status: Acute Category: Surgical Code(s): Z98.890 - Other specified postprocedural states (4) History of DVT of lower extremity Current visit: Yes Status: Chronic Category: Medical Code(s): Z86.718 - Personal history of other venous thrombosis and embolism (5) Hypothyroidism Current visit: Yes Status: Chronic Category: Medical Code(s): E03.9 - Hypothyroidism, unspecified (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 Will need to give her to the packed red blood cells and start her on p.o. potassium. She has been started back on Coumadin and INR this morning is 1.4. <Guillaume Dietz - Last Filed: 04/27/19 09:15> Internal Medicine - PN: Subj *Date: 04/27/19 *Time: 09:14 Exam Vital signs and Labs for Last 24 Hours: Temp Pulse Resp BP Pulse Ox 98.4 F 91 H 21 115/60 97 04/27/19 08:00 04/27/19 08:00 04/27/19 08:00 04/27/19 08:00 04/27/19 08:00 Laboratory Results - last 24 hr 04/25/19 21:30: Crossmatch (AHG) See Detail 04/27/19 06:53: WBC 9.1, RBC 2.68 L, Hgb 7.7 L*, Hct 25.0 L, MCV 93.5, MCH 28.9, MCHC 30.9 L, RDW 16.2, Plt Count 287 D, MPV 7.8, Neut % (Auto) 61.4, Lymph % (Auto) 29.1, [place] % (Auto) 7.7, Eos % (Auto) 1.2, Baso % (Auto) 0.6, Neut # (Auto) 5.6, Lymph # (Auto) 2.7, [place] # (Auto) 0.7, Eos # (Auto) 0.1, Baso # (Auto) 0.1 04/27/19 06:53: PT 14.3 H, INR 1.40 H 04/27/19 06:53: Sodium 139, Potassium 3.3 L, Chloride 105, Carbon Dioxide 26, Anion Gap 11.3, BUN 17, Creatinine 0.86, Estimated Creat Clear 58, Estimated GFR 65, Est GFR ( Amer) 79, Glucose 96, Calcium 8.3 L D I & O for Last 24 hours: Intake & Output 04/24/19 04/25/19 04/26/19 04/27/19 23:59 23:59 23:59 23:59 Intake Total 1000 / 1000 1352 / 1352 360 / 360 Output Total 900 / 1100 300 / 300 Balance 1000 / 1000 452 / 252 60 / 60 Weight 154 lb 9 oz 154 lb 8.987 oz 154 lb 8.987 oz Assessment and Plan (1) Pulmonary emboli Current visit: Yes Status: Acute Category: Medical Code(s): I26.99 - Other pulmonary embolism without acute cor pulmonale (2) Blood loss anemia Current visit: Yes Status: Acute Category: Medical Code(s): D50.0 - Iron deficiency anemia secondary to blood loss (chronic) (3) Status post hip surgery Current visit: Yes Status: Acute Category: Surgical Code(s): Z98.890 - Other specified postprocedural states (4) History of DVT of lower extremity Current visit: Yes Status: Chronic Category: Medical Code(s): Z86.718 - Personal history of other venous thrombosis and embolism (5) Hypothyroidism Current visit: Yes Status: Chronic Category: Medical Code(s): E03.9 - Hypothyroidism, unspecified (6) group home (current) use of anticoagulants Current visit: Yes Status: Chronic Category: Medical Code(s): Z79.01 - group home (current) use of anticoagulants - Assessment and plan all Dx Assessment and Plan for all problems:: Saw patient, agree with above note.
[2019-04-27 18:40] LABS: Hematocrit 33.7 % (37.0-47.0)
[2019-04-27 18:43] LABS: Hemoglobin 10.6 g/dL (12.2-16.2)
--- NOTE | 2019-04-27 22:23 | Progress Note ---
Internal Medicine - PN: Subj *Date: 04/27/19 *Time: 22:20 Exam Vital signs and Labs for Last 24 Hours: Temp Pulse Resp BP Pulse Ox 98.5 F 92 H 17 115/63 100 04/27/19 20:00 04/27/19 20:00 04/27/19 20:00 04/27/19 20:00 04/27/19 20:00 Laboratory Results - last 24 hr 04/25/19 21:30: Blood Type A Positive, Antibody Screen Negative, Crossmatch (AHG) See Detail 04/27/19 06:53: WBC 9.1, RBC 2.68 L, Hgb 7.7 L*, Hct 25.0 L, MCV 93.5, MCH 28.9, MCHC 30.9 L, RDW 16.2, Plt Count 287 D, MPV 7.8, Neut % (Auto) 61.4, Lymph % (Auto) 29.1, [place] % (Auto) 7.7, Eos % (Auto) 1.2, Baso % (Auto) 0.6, Neut # (Auto) 5.6, Lymph # (Auto) 2.7, [place] # (Auto) 0.7, Eos # (Auto) 0.1, Baso # (Auto) 0.1 04/27/19 06:53: PT 14.3 H, INR 1.40 H 04/27/19 06:53: Sodium 139, Potassium 3.3 L, Chloride 105, Carbon Dioxide 26, Anion Gap 11.3, BUN 17, Creatinine 0.86, Estimated Creat Clear 58, Estimated GFR 65, Est GFR ( Amer) 79, Glucose 96, Calcium 8.3 L D 04/27/19 18:26: Hgb 10.6 L D, Hct 33.7 L I & O for Last 24 hours: Intake & Output 04/24/19 04/25/19 04/26/19 04/27/19 23:59 23:59 23:59 23:59 Intake Total 1000 / 1000 1352 / 1352 1220 / 1220 Output Total 900 / 1100 800 / 800 Balance 1000 / 1000 452 / 252 420 / 420 Weight 154 lb 9 oz 154 lb 8.987 oz 154 lb 8.987 oz Assessment and Plan (1) Pulmonary emboli Current visit: Yes Status: Acute Category: Medical Code(s): I26.99 - Other pulmonary embolism without acute cor pulmonale (2) Blood loss anemia Current visit: Yes Status: Acute Category: Medical Code(s): D50.0 - Iron deficiency anemia secondary to blood loss (chronic) (3) Status post hip surgery Current visit: Yes Status: Acute Category: Surgical Code(s): Z98.890 - Other specified postprocedural states (4) History of DVT of lower extremity Current visit: Yes Status: Chronic Category: Medical Code(s): Z86.718 - Personal history of other venous thrombosis and embolism (5) Hypothyroidism Current visit: Yes Status: Chronic Category: Medical Code(s): E03.9 - Hypothyroidism, unspecified (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 Pt ok for discharge on BID Lovenox and Coumadin, office f/u in 3 days. Second discharge order of the evening entered, to satisfy nursing staff, as patient is anxious to go home tonight.
--- NOTE | 2019-04-29 16:56 | Discharge Summary ---
General - General Admission date:: 04/25/19 Discharge date: 04/27/19 HPI HPI: Ms. Moss is a 68-year-old female with a history of previous DVTs, kidney stones, migraines and anxiety who presented to [facility] emergency room yesterday with burning upper respiratory discomfort and shortness of breath. She states she was discharged from Hospital the previous day after having right hip surgery with replacement of hardware in the right hip. They felt she was doing very well so she was discharged the following day after her surgery on 04/23/2019. She began to experience the burning in her chest on the day of discharge from which continued despite multiple antiacids. She has not been eating well. When she began to feel short of breath her daughter insisted that she come to the emergency room for evaluation. With evaluation in the emergency room CTA of the chest revealed pulmonary embolism and she was admitted for further evaluation and treatment. Also she was found to be profoundly anemic and was given 2 units of packed red blood cells. This morning she states she slept well. She had no further burning until getting up and going to the bathroom this a.m. She is dyspneic with exertion. She still does not feel like eating but denies nausea and vomiting. Hospital Course Hospital Course: The patient's chest x-ray showed nothing acute. Her CTA did show pulmonary emboli. She had bilateral lower extremity venous Dopplers which were negative for DVT. She was admitted and started on Lovenox and Coumadin. Her H&H improved with transfusion. She was able to get up independently and walk with her walker. Her potassium was low at 3.3, therefore she was started on potassium supplementation. Her H&H was rechecked on 04/27/2019 and was low again at 7.7. She was transfused with more packed red blood cells and her H&H improved to 10.6 and 33.7. She did begin feeling better after transfusion and wanted to go home. She was stable to be discharged on twice daily Lovenox and Coumadin. She will follow-up in the office [facility] in 3 days. Objective Vital signs: Temp Pulse Resp BP Pulse Ox 98.5 F 92 H 17 115/63 100 04/27/19 20:00 04/27/19 20:00 04/27/19 20:00 04/27/19 20:00 04/27/19 20:00 Narrative: - Constitutional no acute distress - *Routine HEENT Exam Head: Present: normocephalic, atraumatic Eye: Present: PERRL. Absent: conjunctival icterus, scleral injection ENT: Present: mucous membranes moist, oropharynx clear - *Routine Neck Exam Present: supple. Absent: carotid bruit, lymphadenopathy, thyromegaly, tenderness - Routine Chest/Breast/Axilla Exam Chest wall: Absent: tenderness - *Routine Respiratory Exam Present: CTA bilaterally (Anteriorly and posteriorly) - *Routine Cardiovascular Exam Present: RRR - *Routine Abdominal Exam Present: soft, normoactive bowel sounds. Absent: tenderness, distended - *Routine Extremities Exam Present: full ROM. 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 Status: Chronic Discharge Plan - Patient Discharge Instructions ACTIVITY: Continue current activity DIET: continue same diet Patient Instructions: Pulmonary Embolism, Anemia, DI for Pulmonary Embolism - Follow up Plan Follow up with: Guillaume Dietz MD [Primary Care Provider] - 04/30/19 Disposition: Home, Self-Longterm Medications: Home Medications Medication Instructions Recorded Confirmed Type calcium oek-P1-L-mag 1 tab PO BID 12/31/17 04/25/19 History nc-obeytf-zijoii 250 mg calcium-500 unit tablet cholecalciferol (vitamin D3) 2,000 2,000 unit PO BID 12/31/17 04/26/19 History unit capsule diclofenac sodium 75 mg 75 mg PO BID 90 Days 12/31/17 04/26/19 History tablet,delayed release levothyroxine 25 mcg tablet 25 mcg PO DAILY 90 Days tab 12/31/17 04/25/19 History melatonin 10 mg capsule 10 mg PO HS 12/31/17 04/25/19 History multivitamin with minerals tablet 1 tab PO DAILY 12/31/17 04/26/19 History pravastatin 40 mg tablet 40 mg PO HS 90 Days tab 12/31/17 04/26/19 History propranolol 80 mg tablet 40 mg PO DAILY 30 Days tab 12/31/17 04/25/19 History vitamin B complex tablet 1 tab PO DAILY 12/31/17 04/26/19 History warfarin 5 mg tablet 5 mg PO DAILY 30 Days tab 12/31/17 04/25/19 History diclofenac 1 % topical gel 4 g TOPICAL QIDP PRN 02/01/19 04/26/19 History Acetaminophen [Acetaminophen Extra 1,000 mg PO Q6HP PRN 04/26/19 04/26/19 History Strength] Gabapentin [Gabapentin 100mg Cap] 100 mg PO TID 04/26/19 04/26/19 History Gluc/Vinicius-MSM#1/Vit C/Rui/Bor 1 each PO TID 04/26/19 04/26/19 History [Ghsvwil-Dnqnw-FMM Complex Cplt] Hydrocod/Acet 5/325 mg [[place] 1 tab PO Q6HP PRN 04/26/19 04/26/19 History 5/325mg tablet] Methocarbamol [Methocarbamol 750mg 750 mg PO Q4HP PRN 04/26/19 04/26/19 History Tab] Sennosides/Docusate Sodium [Senna 1 each PO BID 04/26/19 04/26/19 History Plus 8.6-50 mg Tablet] Tramadol HCl [Tramadol 50mg 50 mg PO TIDP PRN 04/26/19 04/26/19 History Tab] Enoxaparin Sodium [Lovenox 75 mg SQ BID #0 04/27/19 04/25/19 Rx 150mg/mL syringe] Prescriptions/Medication Reconciliation: Continued propranolol 80 mg tablet 40 mg PO DAILY 30 Days tab warfarin 5 mg tablet 5 mg PO DAILY 30 Days tab pravastatin 40 mg tablet 40 mg PO HS 90 Days tab vitamin B complex tablet 1 tab PO DAILY cholecalciferol (vitamin D3) 2,000 unit capsule 2,000 unit PO BID calcium wid-U0-E-mag wj-tqxpvg-kywrjx 250 mg calcium-500 unit tablet 1 tab PO BID multivitamin with minerals tablet 1 tab PO DAILY levothyroxine 25 mcg tablet 25 mcg PO DAILY 90 Days tab diclofenac sodium 75 mg tablet,delayed release 75 mg PO BID 90 Days melatonin 10 mg capsule 10 mg PO HS diclofenac 1 % topical gel 4 g TOPICAL QIDP PRN PRN Reason: PAIN Gabapentin [Gabapentin 100mg Cap] 100 mg PO TID Methocarbamol [Methocarbamol 750mg Tab] 750 mg PO Q4HP PRN PRN Reason: Muscle Spasm Sennosides/Docusate Sodium [Senna Plus 8.6-50 mg Tablet] 1 each PO BID Tramadol HCl [Tramadol 50mg Tab] 50 mg PO TIDP PRN PRN Reason: PAIN Gluc/Vinicius-MSM#1/Vit C/Rui/Bor [Hxczilg-Dbxme-RAX Complex Cplt] 1 each PO TID Acetaminophen [Acetaminophen Extra Strength] 1,000 mg PO Q6HP PRN PRN Reason: PAIN Hydrocod/Acet 5/325 mg [[place] 5/325mg tablet] 1 tab PO Q6HP PRN PRN Reason: PAIN Changed Enoxaparin Sodium [Lovenox 150mg/mL syringe] 75 mg SQ BID #0 - Problem Reconciliation Problems Reviewed?: Yes
== END 2019-04-27 22:45 | disposition home or self-care (01) | DRG 176 ==
LOC: ER 19:20 → 2ND 21:06
PROVIDERS: ADMIT Family Medicine; ATTEND Family Medicine
CPT/HCPCS: 36415; 71020; 71046; 71275; 80048; 80053; 82272; 83735; 84484; 85014; 85018; 85025; 85610; 86850; 87430; 93005; 93970; 96365; 96375; 99284; G0328; J2405; P9016; Q9967

== ENCOUNTER → 2019-06-01 10:04 | Outpatient (POV) | payer MEDICARE, OTHER, SELFPAY | PROVIDERS: PCP Dermatology; Visit Provider Dermatology | DX: Z00.00 Encounter for general adult medical examination without abnormal findings (principal) ==

== ENCOUNTER 2019-06-16 08:30 | Outpatient (RCR) | payer MEDICARE, OTHER, SELFPAY | END 2019-06-16 08:35 | disposition home or self-care (01) | LOC: PT 08:30 | PROVIDERS: PCP Family Medicine; Visit Provider Orthopaedic Surgery Orthopaedic Trauma | DX: S72.91XK Unspecified fracture of right femur, subsequent encounter for closed fracture with nonunion (principal) | CPT/HCPCS: 97010; 97014; 97016; 97110; 97116; 97140; 97163; 97164; G0283 ==

== ENCOUNTER 2020-01-26 14:01 | Outpatient (RCR) | payer MEDICARE, OTHER, SELFPAY ==
--- NOTE | 2020-01-26 14:54 | HMH.PTOPEV ---
PT Outpatient Evaluation Rehab PT Outpatient Evaluation Start: 01/26/20 14:43 Freq: Status: Active Protocol: Document 01/26/20 14:43 PHORNE (Rec: 01/26/20 14:54 PHORNE [id number]) Electronically Signed By Keon Reza, PT 01/26/20 14:43 Outpatient Therapy Subjective History Subjective History Pt is 69 yowf who presents with c/o intermittent positional dizziness x ~ 2 yrs . She reports problems only with bending forward then returning to upright position or sometimes with rolling over in bed. She reports no c/o N/ V with these episodes. She reports past hx of migraine headaches, but none lately. She does have some mild neck pain, worse on the L side. Symptoms Relieved By Rest/Positioning Symptoms Aggravated By Bending/Stooping Prior Functional Limitations Walking,Stairs Current Functional Limitations Walking,Stairs Balance Eval Hx of Falls Hx Falls No Nystagmus Nystagmus Presence Positional Nystagmus Description Left Direction,Left Torsion, Latency - Immediate Timed Up and Go Test 1. Is the Timed Up and Go test result > no or = to 12 seconds? 3. Is the Timed Up and Go Test result < yes 12 seconds? Oculomotor Gaze Oculomotor Gaze Nml: Vergence Smooth Pursuit Saccades VOR Cancellation Cover/Uncover Cross Cover Outpatient Therapy Assessment Impairments Problems/Impairmments Impaired Balance,Impaired Self Care/Self Management Prognosis Rehab Potential Good Clinical Impression Consistent with Diagnosis Yes Short Term Goals Number of Weeks 4 Improve Balance Yes Patient to be Ind w/ HEP Yes Residential Goals Number of Weeks 8 Improve Ability to Bend Yes: without dizziness Patient to be Ind w/ Advanced HEP Yes Outpatient Therapy Plan of Care Treatment Plan May Include Therapeutic Exercise Including Home Yes Exercise Program Manual Therapy Techniques Yes Neuromuscular Re-education Yes Therapeutic Activities to Return to Yes Previous Functional/Work Level Gait Training Yes Frequency Times per week 2 Duration Num
== END 2020-01-26 14:05 | disposition home or self-care (01) ==
LOC: PT 14:01
PROVIDERS: Visit Provider Family Medicine
DX: R42 Dizziness and giddiness (principal)
CPT/HCPCS: 97163

== ENCOUNTER 2020-02-24 14:00 | Outpatient (RCR) | payer MEDICARE, OTHER, SELFPAY | END 2020-02-24 14:05 | disposition home or self-care (01) | LOC: PT 14:00 | PROVIDERS: Visit Provider Orthopaedic Surgery Orthopaedic Trauma | DX: M79.604 Pain in right leg (principal) | CPT/HCPCS: 97110; 97113; 97163; 97164; 97530; 97760 ==

== ENCOUNTER → 2020-05-05 15:45 | Outpatient (CLI) | payer MEDICARE, OTHER, SELFPAY ==
--- NOTE | 2020-05-05 15:55 | MM_ITS ---
PROCEDURE: MM DIG SCREENING MAMM BI W/CAD Digital Breast Tomosynthesis Included CLINICAL INDICATION: SCREENING There is a history of breast cancer in the patient's maternal grandmother. COMPARISON: MG DMSB DIG MAMM-SCREEN CARTER from 06/18/2016 MG DMSB DIG MAMM-SCREEN CARTER W/CAD from 06/20/2017 MG [facility]BI MM Dig screening mamm BI w/CAD from 07/10/2018 TECHNIQUE: Standard CC and MLO images and 3D Tomosynthesis was obtained. R2 CAD reviewed. FINDINGS: Moderate scattered fibroglandular densities are seen throughout both breasts. There are few scattered microcalcifications in each breast more numerous right side than left. There is a stable small benign-appearing nodular density upper outer quadrant left breast. There is a possible asymmetric density central portion left breast best seen on the CC view. Tristan images are somewhat indeterminate. Recommend the patient return for spot compression views of the area marked on the study, ultrasound may be necessary as well if this proves to be a true lesion. There are no suspicious microcalcifications. IMPRESSION: Moderate breast density with possible new asymmetric lesion left breast versus summation shadow BI-RAD Category: 0 Need Additional Imaging Evaluation FOLLOW-UP: IMM Immediate Follow-up Recommended (A letter has been sent to the patient regarding results of the study.) Dictated by: Dr. Raudel Stephens MD 05/08/2020 08:14 Dr. Raudel Stephens MD in [place] 05/08/2020 08:14
== END ==
PROVIDERS: PCP Family Medicine; Visit Provider Family Medicine
DX: Z12.31 Encounter for screening mammogram for malignant neoplasm of breast (principal)
CPT/HCPCS: 77063; 77067

== ENCOUNTER → 2020-05-15 14:08 | Outpatient (CLI) | payer MEDICARE, OTHER, SELFPAY ==
--- NOTE | 2020-05-15 14:10 | MM_ITS ---
PROCEDURE: MM DIG MAMM DX UNILAT LT CAD Digital Breast Tomosynthesis Included CLINICAL INDICATION: ABN MAMM OF LT BREAST COMPARISON: MG DMSB DIG MAMM-SCREEN CARTER W/CAD from 06/20/2017 MG SCBI MM Dig screening mamm BI w/CAD from 07/10/2018 MG MM DIG SCREENING MAMM BI W/CAD from 05/05/2020 US US BREAST LT COMPLETE from 05/15/2020 TECHNIQUE: Standard CC and MLO images and 3D Tomosynthesis was obtained. R2 CAD reviewed. FINDINGS: The nodular density seen on the recent mammogram 05/05/2020 appears to press out on the spot compression CC view and is not definitely seen on the spot compression MLO view. Few scattered benign-appearing microcalcifications are seen central portion along with minimal arterial calcification. Ultrasound performed the same date showed a couple of tiny cysts at the 6 to 7 o'clock position but there is no suspicious solid lesions seen. IMPRESSION: No persistent or suspicious lesion seen on problem solving views and no worrisome ultrasound findings BI-RAD Category: 2 Benign Finding(s) FOLLOW-UP: 1YR 1 Year Follow-up (A letter has been sent to the patient regarding results of the study.) Dictated by: Dr. Raudel Stephens MD 05/17/2020 12:16 Dr. Raudel Stephens MD in [place] 05/17/2020 12:16
--- NOTE | 2020-05-15 14:11 | US_ITS ---
PROCEDURE: US BREAST LT COMPLETE CLINICAL INDICATION: ABN MAMM OF LT BREAST COMPARISON: No exams were available for comparison FINDINGS: Mild diffuse heterogenic echogenicity is seen throughout the breast. There is a small benign-appearing cystic lesion at the 6 o'clock position near the nipple measuring 0.4 by 0.9 x 0.2 cm and this likely is a small benign cyst. There is a similar benign-appearing cystic structure at the 5 o'clock position near the nipple measuring 0.5 x 0.3 by 0.4 cm. There is a normal appearing node in the axilla. IMPRESSION: Small benign-appearing cystic structures as described and recommend the patient continue with yearly screening mammography Dictated by: Dr. Raudel Stephens MD 05/17/2020 12:19 Dr. Raudel Stephens MD in [place] 05/17/2020 12:19
== END ==
PROVIDERS: PCP Family Medicine; Visit Provider Family Medicine
DX: R92.8 Other abnormal and inconclusive findings on diagnostic imaging of breast (principal)
CPT/HCPCS: 76641; 77061; 77065; G0279

== ENCOUNTER → 2020-06-06 13:14 | Outpatient (POV) | payer MEDICARE, OTHER, SELFPAY | PROVIDERS: Visit Provider Dermatology | DX: Z00.00 Encounter for general adult medical examination without abnormal findings (principal) ==

== ENCOUNTER 2020-07-27 10:26 | Emergency (ER) | payer MEDICARE, OTHER, SELFPAY ==
[2020-07-27 10:26] VITALS: BP 115/72; PULSE 65; RESP 14; TEMP 36.4; O2SAT 97; BMI 25.4
--- NOTE | 2020-07-27 11:06 | HMH.EDUTC ---
[place] Disposition Clinical Impression: Viral syndrome, Exposure to COVID-19 virus Disposition: Home, Self-Care Condition on Discharge: Good Instructions: DI for COVID-19 (Suspected or Confirmed ), Preventing the Spread of Coronavirus Discharge Instructions Additional Instructions: Drink plenty of fluids. Take tylenol for pain or fever. Return if you begin to have difficulty breathing. Follow up with your regular doctor. GO TO THE ER FOR ANY WORSENING SYMPTOMS Referrals: Guillaume Dietz MD [Primary Care Provider] - Time of Disposition: 11:21 Medical Decision Making - Medical Records Medical records reviewed: No: I reviewed the patient's medical records. - [place] Inquiry Pt receiving controlled substance: No Vital Signs: 07/27/20 10:26 07/27/20 11:24 Temperature 97.6 F 97.6 F Temperature Source Oral Oral Pulse Rate 65 Pulse Rate [Right] 65 Respiratory Rate 14 14 Blood Pressure 115/72 Blood Pressure [Right Arm] 115/72 Blood Pressure Mean [Right Arm] 86 02 Sat by Pulse Oximetry 97 [place] HPI - General Stated complaint: loss of taste and smell Time Seen by Provider: 07/27/20 11:06 Mode of Arrival: Ambulatory Source of Information: Patient Description of Symptoms (Recalled from Triage Doc. by RN): pt request COVID pt c/o of loss of taste smell that started yesterday HEENT Symptoms (Recalled from RN notes): No Resp Symptoms (Recalled from RN notes): Yes Skin Symptoms (Recalled from RN notes): No MS Symptoms (Recalled from RN notes): No Functional Status (Recalled from RN notes): wnl - History of Present Illness Provider Complaint: She states that she has felt like she has a cold for the past 3 days. This morning she woke up with no sense of smell, so she was concerned about covid-19. She denies any shortness of breath and chest pain. - Related Data Home Medications Medication Instructions Recorded Confirmed calcium qwf-S4-R-mag 1 tab PO BID 12/31/17 06/13/20 yn-fajtgq-hgkghd 250 mg calcium-500 unit tablet cholecalciferol (vitamin D3) 50 2,000 unit PO BID 12/31/17 06/13/20 mcg (2,000 unit) capsule diclofenac sodium 75 mg 75 mg PO BID 90 Days 12/31/17 06/13/20 tablet,delayed release melatonin 10 mg capsule 10 mg PO HS 12/31/17 06/13/20 multivitamin with minerals 1 tab PO DAILY 12/31/17 06/13/20 pravastatin 40 mg tablet 40 mg PO HS 90 Days tab 12/31/17 06/13/20 propranolol 80 mg tablet 40 mg PO DAILY 30 Days tab 12/31/17 06/13/20 vitamin B complex 1 tab PO DAILY 12/31/17 06/13/20 warfarin 5 mg tablet 5 mg PO DAILY 30 Days tab 12/31/17 06/13/20 diclofenac sodium 1 % topical gel 4 g TOPICAL QIDP PRN 02/01/19 06/13/20 Acetaminophen [Acetaminophen Extra 1,000 mg PO Q6HP PRN 04/26/19 06/13/20 Strength] Glucosam/Chond-Msm1/C/Rui/Bor 1 each PO TID 04/26/19 06/13/20 [Iaijxdb-Biiuq-RPW Complex Cplt] Allergies Allergy/AdvReac Type Severity Reaction Status Date / Time morphine [MORPHINE] Allergy Mild Unknown Verified 06/13/20 13:08 allergy reaction Penicillins Allergy Mild Unknown Verified 06/13/20 13:08 allergy reaction Sulfa (Sulfonamide Allergy Mild Unknown Verified 06/13/20 13:08 Antibiotics) allergy [SULFA (SULFONAMIDE reaction ANTIBIOTICS)] - Worker's Comp Is this a Worker's Comp case?: No Is this an H Worker's Comp?: No Is this a Marky Worker's Comp?: No H History - Hepatitis A Screen Drug use history?: No High risk sexual behaviors?: No History of sexually transmitted infection?: No Currently employed?: No Childcare worker?: No Do you have indoor plumbing?: Yes Do you have electricity?: Yes Attestation statement:: This patient has been screened for Hepatitis A risk factors. I have reviewed the patient's past medical history: Yes Medical History: Reports:: Anxiety, Deep Vein Thrombosis, Gastroesophageal Reflux Disease(GERD), Hyperlipidemia, Kidney Stones, Migraine Denies:: Cancer, Diabetes Mellitu
[2020-07-27 11:24] VITALS: BP 115/72; PULSE 65; RESP 14; TEMP 36.4
--- NOTE | 2020-07-27 17:06 | PC.NURSE ---
patient notified of positive covid results
== END 2020-07-27 11:25 | disposition home or self-care (01) ==
PROVIDERS: Emergency Provider Nurse Practitioner Family; PCP Family Medicine
DX: U07.1 COVID-19 (principal); E03.9 Hypothyroidism, unspecified; E78.5 Hyperlipidemia, unspecified; K21.9 Gastro-esophageal reflux disease without esophagitis; Z79.899 Other long term (current) drug therapy; Z88.0 Allergy status to penicillin; Z88.2 Allergy status to sulfonamides; Z88.5 Allergy status to narcotic agent
CPT/HCPCS: G0463; 99202; U0003

== ENCOUNTER → 2020-07-31 11:26 | Outpatient (CLI) | payer MEDICARE, OTHER, SELFPAY ==
[2020-07-31 13:02] LABS: INR 2.28 (0.9-1.1); Prothrombin Time 23.5 seconds (9.4-11.8)
== END ==
LOC: COVID.OUT 11:28 → LAB 11:31
PROVIDERS: PCP Family Medicine; Visit Provider Family Medicine
DX: Z51.81 Encounter for therapeutic drug level monitoring (principal); R79.1 Abnormal coagulation profile; I82.409 Acute embolism and thrombosis of unspecified deep veins of unspecified lower extremity; U07.1 COVID-19
CPT/HCPCS: 36415; 85610

== ENCOUNTER 2020-08-20 12:28 | Emergency (ER) | payer MEDICARE, OTHER, SELFPAY ==
[2020-08-20 12:45] VITALS: BP 117/42; PULSE 65; RESP 20; TEMP 36.6; O2SAT 97; BMI 25.4
--- NOTE | 2020-08-20 13:07 | HMH.EDUTC ---
[facility] [place] Clinical Impression: COVID-19 Sinusitis Qualifiers: Sinusitis location: unspecified location Chronicity: acute Recurrence: non-recurrent Qualified Code(s): J01.90 - Acute sinusitis, unspecified Disposition: Home, Self-Care Condition on Discharge: Good Instructions: DI for Sinusitis, DI for COVID-19 (Suspected or Confirmed ), Preventing the Spread of Coronavirus Discharge Instructions Additional Instructions: Drink plenty of fluids. Take tylenol for pain or fever. Return if you begin to have difficulty breathing. Follow up with your regular doctor. GO TO THE ER FOR ANY WORSENING SYMPTOMS Prescriptions: Benzonatate [Tessalon Perle 100mg Cap] 100 mg PO TIDP PRN #30 cap PRN Reason: Cough Transmission Status: Received by [id number] Azithromycin [Z-Jason 250mg Tab*] 250 mg PO UD DOSE PK #6 tab Transmission Status: Received by [id number] Referrals: Guillaume Dietz MD [Primary Care Provider] - Time of Disposition: 13:19 Medical Decision Making - Medical Records Medical records reviewed: No: I reviewed the patient's medical records. - [place] Inquiry Pt receiving controlled substance: No Vital Signs: 08/20/20 12:45 08/20/20 13:13 Temperature 97.8 F 97.8 F Temperature Source Oral Pulse Rate 65 Pulse Rate [Right Brachial] 65 Respiratory Rate 20 20 Blood Pressure 117/42 L Blood Pressure [Right Arm] 117/42 L Blood Pressure Mean [Right Arm] 67 Blood Pressure Source [Right Arm] Automatic Cuff Blood Pressure Position [Right Arm] Sitting 02 Sat by Pulse Oximetry 97 Oxygen Delivery Method Room Air [facility] [place] - General Stated complaint: Listen to Chest Time Seen by Provider: 08/20/20 13:07 - History of Present Illness Provider Complaint: She states that she had covid-19 last week. She didn't get very sick with it. She basically only had loss of sense of smell and taste. But, over the past 1 day she has been having a tickle in her throat and she has been coughing slightly more than normal. She denies any shortness of breath, fever, chills, and other symptoms. She denies any chest pain. - Related Data Home Medications Medication Instructions Recorded Confirmed calcium zsa-O4-K-mag 1 tab PO BID 12/31/17 06/13/20 fq-hjttnb-igqiqn 250 mg calcium-500 unit tablet cholecalciferol (vitamin D3) 50 2,000 unit PO BID 12/31/17 06/13/20 mcg (2,000 unit) capsule diclofenac sodium 75 mg 75 mg PO BID 90 Days 12/31/17 06/13/20 tablet,delayed release melatonin 10 mg capsule 10 mg PO HS 12/31/17 06/13/20 multivitamin with minerals 1 tab PO DAILY 12/31/17 06/13/20 pravastatin 40 mg tablet 40 mg PO HS 90 Days tab 12/31/17 06/13/20 propranolol 80 mg tablet 40 mg PO DAILY 30 Days tab 12/31/17 06/13/20 vitamin B complex 1 tab PO DAILY 12/31/17 06/13/20 warfarin 5 mg tablet 5 mg PO DAILY 30 Days tab 12/31/17 06/13/20 diclofenac sodium 1 % topical gel 4 g TOPICAL QIDP PRN 02/01/19 06/13/20 Acetaminophen [Acetaminophen Extra 1,000 mg PO Q6HP PRN 04/26/19 06/13/20 Strength] Glucosam/Chond-Msm1/C/Rui/Bor 1 each PO TID 04/26/19 06/13/20 [Gzsdktv-Qkxow-VUZ Complex Cplt] Previous Rx's Medication Instructions Recorded Azithromycin [Z-Jason 250mg Tab*] 250 mg PO UD DOSE PK #6 tab 08/20/20 Benzonatate [Tessalon Perle 100mg 100 mg PO TIDP PRN #30 cap 08/20/20 Cap] Allergies Allergy/AdvReac Type Severity Reaction Status Date / Time morphine [MORPHINE] Allergy Mild Unknown Verified 06/13/20 13:08 allergy reaction Penicillins Allergy Mild Unknown Verified 06/13/20 13:08 allergy reaction Sulfa (Sulfonamide Allergy Mild Unknown Verified 06/13/20 13:08 Antibiotics) allergy [SULFA (SULFONAMIDE reaction ANTIBIOTICS)] [facility] History - Hepatitis A Screen Attestation statement:: This patient has been screened for Hepatitis A risk factors. I have reviewed the patient's past medical history: Yes Medical Histor
[2020-08-20 13:13] VITALS: BP 117/42; PULSE 65; RESP 20; TEMP 36.6; O2SAT 97
== END 2020-08-20 13:30 | disposition home or self-care (01) ==
PROVIDERS: Emergency Provider Nurse Practitioner Family; PCP Family Medicine
DX: J01.90 Acute sinusitis, unspecified (principal); Z86.16 Personal history of COVID-19; K21.9 Gastro-esophageal reflux disease without esophagitis; E78.5 Hyperlipidemia, unspecified; Z87.442 Personal history of urinary calculi; E03.9 Hypothyroidism, unspecified; Z79.899 Other long term (current) drug therapy; Z88.0 Allergy status to penicillin; Z88.2 Allergy status to sulfonamides; Z88.5 Allergy status to narcotic agent
CPT/HCPCS: G0463; 99202

== ENCOUNTER 2020-11-02 17:25 | Emergency (ER) | payer MEDICARE, OTHER, SELFPAY ==
[2020-11-02 17:59] LABS: Apearance,Urine Clear (Clear); Color,Urine Orange (Yellow); PH,Urine 5.5 (5.0-8.5)
[2020-11-02 18:00] LABS: Glucose,Urine (UA) 1+ (Negative); Ketones,Urine Negative (Negative); Protein,Urine Negative (Negative)
[2020-11-02 18:01] LABS: Bilirubin,Urine Negative (Negative); Blood, Urine 3+ (Negative); UTC Leukocyte Esterase,Urine 3+ (Negative); UTC Nitrate,Urine Positive (Negative); Urobilinogen,Urine 2 EU/dl (0.2)
--- NOTE | 2020-11-02 18:23 | HMH.EDUTC ---
[facility] Disposition Clinical Impression: UTI (urinary tract infection) Qualifiers: Urinary tract infection type: site unspecified Hematuria presence: with hematuria Qualified Code(s): N39.0 - Urinary tract infection, site not specified Disposition: Home, Self-Care Condition on Discharge: Good Instructions: Urinary Tract Infection Additional Instructions: Drink plenty of fluids. Take tylenol or ibuprofen for pain or fever. Take the medications as directed. Follow up with your regular doctor. GO TO THE ER FOR ANY WORSENING SYMPTOMS The pyridium will make your urine turn orange, this is an expected side effect. It will stain your clothes if it comes into contact with them. Prescriptions: Nitrofurantoin Monohyd/M-Cryst [Macrobid 100 mg Capsule] 100 mg PO BID 5 Days #10 cap [facility]: [facility] Phenazopyridine HCl [Pyridium 200mg Tablet] 200 pow PO TID #6 tab Transmission Status: [facility] Referrals: Guillaume Dietz MD [Primary Care Provider] - Time of Disposition: 18:33 Medical Decision Making - Medical Records Medical records reviewed: No: I reviewed the patient's medical records. - [place] Inquiry Pt receiving controlled substance: No Vital Signs: 11/02/20 18:28 11/02/20 18:43 Temperature 97.6 F 97.6 F Temperature Source Oral Oral Pulse Rate 66 Respiratory Rate 14 16 Blood Pressure 148/73 H 02 Sat by Pulse Oximetry 97 Oxygen Delivery Method Room Air Room Air - Lab Data Lab results reviewed: Yes: I reviewed the patient's lab results. Lab Results 11/02/20 17:55: Urine Color Irion, Urine Appearance Clear, Urine pH 5.5, Ur Specific Dora 1.010, Urine Protein Negative, Urine Glucose (UA) 1+, Urine Ketones Negative, Urine Blood 3+, Urine Nitrate Positive A, Urine Bilirubin Negative, Urine Urobilinogen 2, Ur Leukocyte Esterase 3+ A Orders (Tests/Meds): ED MEDICATIONS Discontinued Medications Generic Name Dose Route Start Last Admin Trade Name Freq PRN Reason Stop Dose Admin Nitrofurantoin Macrocrystals 100 mg 11/02/20 18:30 11/02/20 18:43 Nitrofurantoin 100mg Capsule PO 11/02/20 18:31 100 mg ONCE ONE Administration ORDERS Category Date Time Status Urine Culture Routine Micro 11/02/20 17:30 Received [facility] HPI - General Stated complaint: Possible Kidney infection Time Seen by Provider: 11/02/20 18:23 - History of Present Illness Provider Complaint: she states that for the past 1 day she has had burning with urination and low back pain. She has been getting uti's very frequently recently. - Related Data Home Medications Medication Instructions Recorded Confirmed calcium [id number]-[id number]-mag 1 tab PO BID 12/31/17 11/01/20 [id number] 250 mg calcium-500 unit tablet cholecalciferol (vitamin D3) 50 2,000 unit PO BID 12/31/17 11/01/20 mcg (2,000 unit) capsule diclofenac sodium 75 mg 75 mg PO BID 90 Days 12/31/17 11/01/20 tablet,delayed release melatonin 10 mg capsule 10 mg PO HS 12/31/17 11/01/20 multivitamin with minerals 1 tab PO DAILY 12/31/17 11/01/20 pravastatin 40 mg tablet 40 mg PO HS 90 Days tab 12/31/17 11/01/20 propranolol 80 mg tablet 40 mg PO DAILY 30 Days tab 12/31/17 11/01/20 vitamin B complex 1 tab PO DAILY 12/31/17 11/01/20 warfarin 5 mg tablet 5 mg PO DAILY 30 Days tab 12/31/17 11/01/20 diclofenac sodium 1 % topical gel 4 g TOPICAL QIDP PRN 02/01/19 11/01/20 Acetaminophen [Acetaminophen Extra 1,000 mg PO Q6HP PRN 04/26/19 11/01/20 Strength] Glucosam/Chond-Msm1/C/Rui/Bor 1 each PO TID 04/26/19 11/01/20 [Vgthkya-Yatol-NTN Complex Cplt] Previous Rx's Medication Instructions Recorded Nitrofurantoin Monohyd/M-Cryst 100 mg PO BID 5 Days #10 cap 11/02/20 [Macrobid 100 mg Capsule] Phenazopyridine HCl [Pyridium 200 pow PO TID #6 tab 11/02/20 200mg Tablet] Allergies Allergy/AdvReac Type Severity Reaction Status Date / Time
[2020-11-02 18:28] VITALS: RESP 14; TEMP 36.4; O2SAT 97; BMI 25.1
[2020-11-02 18:43] VITALS: BP 148/73; PULSE 66; RESP 16; TEMP 36.4; O2SAT 97
== END 2020-11-02 18:44 | disposition home or self-care (01) ==
PROVIDERS: Emergency Provider Nurse Practitioner Family; PCP Family Medicine
DX: N30.00 Acute cystitis without hematuria (principal); B96.20 Unspecified Escherichia coli [E. coli] as the cause of diseases classified elsewhere; K21.9 Gastro-esophageal reflux disease without esophagitis; E78.5 Hyperlipidemia, unspecified; I10 Essential (primary) hypertension; E03.9 Hypothyroidism, unspecified; Z79.899 Other long term (current) drug therapy
CPT/HCPCS: G0463; 81003; 87086; 87088; 87186; 99202

== ENCOUNTER → 2021-05-07 12:54 | Outpatient (CLI) | payer MEDICARE, OTHER, SELFPAY ==
--- NOTE | 2021-05-07 12:57 | MM_ITS ---
PROCEDURE: MM DIG SCREENING MAMM BI W/CAD Digital Breast Tomosynthesis Included CLINICAL INDICATION: SCREENING There is a history of breast cancer in the patient's maternal grandmother. COMPARISON: MG SCBI MM Dig screening mamm BI w/CAD from 07/10/2018 MG MM DIG SCREENING MAMM BI W/CAD from 05/05/2020 MG MM DIG MAMM DX UNILAT LT CAD from 05/15/2020 TECHNIQUE: Standard CC and MLO images and 3D Tomosynthesis was obtained. R2 CAD reviewed. FINDINGS: Moderate somewhat heterogenic fibroglandular densities are seen in the central portions of both breast and the findings are bilateral and symmetrical. There are few scattered benign-appearing microcalcifications in each breast. The small asymmetric density central portion left breast for which additional views were obtained 05/15/2020 is again seen but only on the CC view but appears to be stable and likely is simply asymmetric glandular elements. CAD markings were reviewed in the all appear to be secondary to a calcifications. IMPRESSION: Moderate breast density with no suspicious lesions seen BI-RAD Category: 2 Benign Finding(s) FOLLOW-UP: 1YR 1 Year Follow-up (A letter has been sent to the patient regarding results of the study.) Dictated by: Dr. Raudel Stephens MD 05/15/2021 10:36 Dr. Raudel Stephens MD in [place] 05/15/2021 10:36
== END ==
PROVIDERS: PCP Family Medicine; Visit Provider Family Medicine
DX: Z12.31 Encounter for screening mammogram for malignant neoplasm of breast (principal)
CPT/HCPCS: 77063; 77067

== ENCOUNTER 2021-06-08 15:00 | Outpatient (RCR) | payer MEDICARE, OTHER, SELFPAY | END 2021-07-24 08:56 | disposition home or self-care (01) | LOC: PT 15:00 | PROVIDERS: PCP Family Medicine; Visit Provider Orthopaedic Surgery Orthopaedic Trauma | DX: M79.604 Pain in right leg (principal) | CPT/HCPCS: 97010; 97014; 97033; 97110; 97163; 97164; G0283 ==

== ENCOUNTER → 2021-06-12 13:03 | Outpatient (POV) | payer MEDICARE, OTHER, SELFPAY | PROVIDERS: Visit Provider Dermatology | DX: Z00.00 Encounter for general adult medical examination without abnormal findings (principal) ==

== ENCOUNTER → 2021-10-02 13:01 | Outpatient (POV) | payer MEDICARE, OTHER, SELFPAY | PROVIDERS: Visit Provider Dermatology | DX: Z00.00 Encounter for general adult medical examination without abnormal findings (principal) ==

== ENCOUNTER → 2022-03-06 08:45 | Outpatient (CLI) | payer MEDICARE, OTHER, SELFPAY ==
--- NOTE | 2022-03-06 08:49 | XR_ITS ---
FINAL REPORT TECHNIQUE: Bone mineral density was calculated of the lumbar spine and hip. CLINICAL HISTORY: . post menopausal screening, prior 2016 FINDINGS: DEXA BONE DENSITY AXIAL SKELETON Using L1-4, the bone mineral density of the spine is 1.066 g/cm2, corresponding to T-score of 0.2. Using the left hip, the bone mineral density of the femoral neck is 0.707 g/cm2, corresponding to a T-score of -1.9. Using the right forearm, the bone mineral density of the distal 1/3 is 0.612 g/cm2, corresponding to a T-score of -1.4. NOTE: T-score: Standard deviation compared with peak bone mass of young adult mean. *Following the recommendations of the International Society of Bone densitometry, classification of hip BMD is based on the lower of two T-scores; total hip or femoral neck. IMPRESSION: Diminished bone mineral density of the lumbar spine, left hip and right forearm consistent with osteopenia. FRAX 10 year fracture risk is 3.5 % for a hip fracture and 18 % for a major osteoporotic fracture. Reviewed, Interpreted and Dictated by Scooter Beth III, MD Transcribed by Falguni Jurado Authenticated and [facility]
== END ==
PROVIDERS: PCP Family Medicine; Visit Provider Family Medicine
DX: Z78.0 Asymptomatic menopausal state (principal); M85.89 Other specified disorders of bone density and structure, multiple sites
CPT/HCPCS: 77080

== ENCOUNTER → 2022-05-10 13:23 | Outpatient (CLI) | payer MEDICARE, OTHER, SELFPAY ==
--- NOTE | 2022-05-10 13:26 | MM_ITS ---
PROCEDURE INFORMATION: Exam: MG Bilateral Screening 3D Mammography Exam date and time: 05/10/2022 1:19 PM Age: 72 years old Clinical indication: Screening examination. Her maternal grandmother had breast cancer. TECHNIQUE: Imaging protocol: Bilateral Screening tomosynthesis and 2D mammography including computer-aided detection (CAD) when performed. COMPARISON: 1. MG MM DIG SCREENING MAMM BI W/CAD 05/07/2021 1:07 PM 2. MG MM DIG MAMM DX UNILAT LT CAD 05/15/2020 2:13 PM 3. MG MM DIG SCREENING MAMM BI W/CAD 05/05/2020 3:58 PM 4. MG SCBI MM Dig screening mamm BI w/CAD 07/10/2018 9:49 AM FINDINGS: MAMMOGRAPHY: Breast composition: The breasts are heterogeneously dense, which may obscure small masses. Mass: None. Architectural distortion: None. Calcifications: No suspicious calcifications. Asymmetric density: None. Skin thickening: None. Axillary adenopathy: None. IMPRESSION: No mammographic evidence of malignancy. Annual screening is recommended unless otherwise clinically indicated. ASSESSMENT: BI-RADS Category 1: Negative
== END ==
PROVIDERS: PCP Family Medicine; Visit Provider Family Medicine
DX: Z12.31 Encounter for screening mammogram for malignant neoplasm of breast (principal)
CPT/HCPCS: 77063; 77067

== ENCOUNTER → 2022-06-18 13:28 | Outpatient (POV) | payer MEDICARE, OTHER, SELFPAY | PROVIDERS: Visit Provider Dermatology | DX: Z00.00 Encounter for general adult medical examination without abnormal findings (principal) ==

== ENCOUNTER 2023-05-07 13:00 | Outpatient (RCR) | payer MEDICARE, OTHER, SELFPAY | END 2023-05-07 13:05 | disposition home or self-care (01) | LOC: PT 13:00 | PROVIDERS: PCP Family Medicine; Visit Provider Orthopaedic Surgery Orthopaedic Trauma | DX: M79.604 Pain in right leg (principal) | CPT/HCPCS: 20560; 97010; 97014; 97110; 97140; 97163; 97164; 97530; G0283 ==

== ENCOUNTER → 2023-05-14 12:39 | Outpatient (CLI) | payer MEDICARE, OTHER, SELFPAY ==
--- NOTE | 2023-05-14 12:43 | MM_ITS ---
PROCEDURE INFORMATION: Exam: MG Bilateral Screening 3D Mammography Exam date and time: 05/14/2023 12:51 PM Age: 73 years old Clinical indication: Screening examination. Her maternal grandmother had breast cancer. TECHNIQUE: Imaging protocol: Bilateral Screening tomosynthesis and 2D mammography including computer-aided detection (CAD) when performed. COMPARISON: 1. MG MM DIG SCREENING MAMM BI W/CAD 05/10/2022 1:19 PM 2. MG MM DIG SCREENING MAMM BI W/CAD 05/07/2021 1:07 PM 3. MG MM DIG MAMM DX UNILAT LT CAD 05/15/2020 2:13 PM 4. MG MM DIG SCREENING MAMM BI W/CAD 05/05/2020 3:58 PM FINDINGS: MAMMOGRAPHY: Breast composition: The breasts are heterogeneously dense, which may obscure small masses. Mass: None. Architectural distortion: None. Calcifications: No suspicious calcifications. Asymmetric density: No developing asymmetry. Skin thickening: None. Axillary adenopathy: None. IMPRESSION: No mammographic evidence of malignancy. Annual screening is recommended unless otherwise clinically indicated. ASSESSMENT: BI-RADS Category 1: Negative
== END ==
PROVIDERS: PCP Family Medicine; Visit Provider Family Medicine
DX: Z12.31 Encounter for screening mammogram for malignant neoplasm of breast (principal)
CPT/HCPCS: 77063; 77067

== ENCOUNTER → 2023-05-28 13:50 | Outpatient (CLI) | payer MEDICARE, OTHER, SELFPAY ==
--- NOTE | 2023-05-28 14:00 | XR_ITS ---
FINAL REPORT CLINICAL HISTORY: LEFT KNEE PAIN COMPARISON: None FINDINGS: AP, lateral and oblique views of the left knee were obtained. There is no prior exam for comparison. There is a small sclerotic lesion in the distal femoral metadiaphysis, likely an enchondroma. Degenerative joint disease is present. The soft tissues are normal. There is no joint effusion. IMPRESSION: No acute osseous abnormality of the left knee. Degenerative joint disease is present. Reviewed, Interpreted and Dictated by Katherine Palmer MD Transcribed by Melva Nolasco Authenticated and [facility]
== END ==
PROVIDERS: PCP Family Medicine; Visit Provider Family Medicine
DX: M25.562 Pain in left knee (principal)
CPT/HCPCS: 73562

== ENCOUNTER → 2023-06-02 14:05 | Outpatient (CLI) | payer MEDICARE, OTHER, SELFPAY ==
--- NOTE | 2023-06-02 14:14 | US_ITS ---
FINAL REPORT TECHNIQUE: Ultrasound images of the kidneys were obtained. CLINICAL HISTORY: CYSTITIS COMPARISON: None FINDINGS: The right kidney measures 8.4 cm in length. It is normal in echogenicity. There is no hydronephrosis. Echogenic focus in the lower pole of the right kidney which measures approximately 1 cm in diameter and has posterior acoustical shadowing, most compatible in appearance with a nonobstructing renal stone. The left kidney measures 7.9 cm in length. It is normal in echogenicity. There is no hydronephrosis. IMPRESSION: Nonobstructing renal stone, 1 cm in diameter, lower pole of the right kidney. Otherwise unremarkable ultrasound of the kidneys. Reviewed, Interpreted and Dictated by Carlos Alberto Leos MD Transcribed by Melva Nolasco Authenticated and [facility] [place]
== END ==
PROVIDERS: PCP Family Medicine; Visit Provider Urology
DX: N30.90 Cystitis, unspecified without hematuria (principal)
CPT/HCPCS: 76770

== ENCOUNTER → 2023-07-01 13:46 | Outpatient (POV) | payer MEDICARE, OTHER, SELFPAY | PROVIDERS: PCP Family Medicine; Visit Provider Dermatology | DX: Z00.00 Encounter for general adult medical examination without abnormal findings (principal) ==

== ENCOUNTER 2023-10-06 14:48 | Outpatient (POV) | payer MEDICARE, OTHER, SELFPAY | END 2023-10-06 23:59 | disposition home or self-care (01) | LOC: SC 14:49 | PROVIDERS: Visit Provider Specialist/Technologist | DX: Z00.00 Encounter for general adult medical examination without abnormal findings (principal) ==

== ENCOUNTER 2024-05-05 13:00 | Outpatient (RCR) | payer MEDICARE, OTHER, SELFPAY | END 2024-05-05 13:05 | disposition home or self-care (01) | LOC: PT 13:00 | PROVIDERS: Visit Provider Physician Assistant Medical | DX: M54.50 Low back pain, unspecified (principal) | CPT/HCPCS: 97014; 97110; 97163; 97164; 97530; G0283 ==

== ENCOUNTER 2024-05-05 15:36 | Outpatient (CLI) | payer MEDICARE, OTHER, SELFPAY ==
--- NOTE | 2024-05-05 15:40 | XR_ITS ---
FINAL REPORT CLINICAL HISTORY: SCREENING FINDINGS: Using L1-4, the bone mineral density of the spine is 1.082 g/cm2, corresponding to T-score of 0.3 which is within the normal range but may be falsely elevated due to hypertrophic changes. Using the left hip, the bone mineral density of the femoral neck is 0.649 g/cm2, corresponding to a T-score of -1.8 which is within the osteopenic range. Using the distal one third of the left forearm, the bone mineral density is 0.651 corresponding to a T-score of -0.7. This is within the normal range. FRAX 10 year fracture risk is 19% for a hip fracture and 4.1% for a major osteoporotic fracture. IMPRESSION: Normal bone mineral density of the lumbar spine which may be falsely elevated due to hypertrophic changes. Normal bone mineral density of the left forearm. Osteopenic bone mineral density of the left hip. NOTE: T-score: Standard deviation compared with peak bone mass of young adult mean. *Following the recommendations of the International Society of Bone densitometry, classification of hip BMD is based on the lower of two T-scores; total hip or femoral neck. Reviewed, Interpreted and Dictated by Carlos Alberto Leos MD Transcribed by Danica Diaz Authenticated and [facility]
== END 2024-05-05 23:59 | disposition home or self-care (01) ==
LOC: RAD 15:36
PROVIDERS: PCP Family Medicine; Visit Provider Family Medicine
DX: M85.88 Other specified disorders of bone density and structure, other site (principal)
CPT/HCPCS: 77080

== ENCOUNTER 2024-05-19 16:13 | Outpatient (CLI) | payer MEDICARE, OTHER, SELFPAY ==
--- NOTE | 2024-05-19 16:16 | MM_ITS ---
PROCEDURE INFORMATION: Exam: MG Bilateral Screening 3D Mammography Exam date and time: 05/19/2024 4:05 PM Age: 74 years old Clinical indication: Screening examination TECHNIQUE: Imaging protocol: Bilateral Screening tomosynthesis and 2D mammography including computer-aided detection (CAD) when performed. COMPARISON: 1. MG MM DIG SCREENING MAMM BI W/CAD 05/14/2023 12:51 PM 2. MG MM DIG SCREENING MAMM BI W/CAD 05/10/2022 1:19 PM FINDINGS: MAMMOGRAPHY: Breast composition: There are scattered areas of fibroglandular density. Mass: None. Architectural distortion: None. Calcifications: No suspicious calcifications. Asymmetric density: None. Skin thickening: None. Axillary adenopathy: None. IMPRESSION: No mammographic evidence of malignancy. Annual screening is recommended unless otherwise clinically indicated. ASSESSMENT: BI-RADS Category 1: Negative.
== END 2024-05-19 23:59 | disposition home or self-care (01) ==
LOC: RAD 16:14
PROVIDERS: PCP Family Medicine; Visit Provider Family Medicine
DX: Z12.31 Encounter for screening mammogram for malignant neoplasm of breast (principal)
CPT/HCPCS: 77063; 77067

== ENCOUNTER 2024-06-28 10:58 | Outpatient (CLI) | payer MEDICARE, OTHER, SELFPAY ==
--- NOTE | 2024-06-28 11:01 | FL_ITS ---
FINAL REPORT CLINICAL HISTORY: CHRONIC COUGH 24.99 mgy 3.48 fluoro time FINDINGS: MODIFIED BARIUM SWALLOW History: Dysphagia. FINDINGS: Fluoroscopy was provided for the speech pathologist to evaluate the swallowing mechanism. The patient was given several different consistencies of barium while the swallow was visualized fluoroscopically. The report of the speech pathologist should be consulted prior to making dietary decisions. Fluoro time: 3 minutes 48 seconds Radiation exposure in Reference air Kerma: 24.99 mGy. IMPRESSION: Modified barium swallow under fluoroscopic guidance. Please see the report of the speech pathologist for more detail. Films reviewed , interpreted and dictated by Dr. Beth. Transcribed by Kulwant Elise PA-C. Reviewed, Interpreted and Dictated by Scooter Beth III, MD Transcribed by MARY Gaston Authenticated and [facility]
[2024-06-28] MEDS: BARIUM SULFATE(LIQUID E-Z-PAQUE);355ML BOTTLE 355 ML PO (12:06)
--- NOTE | 2024-06-28 14:46 | HMH.SLMBS2 ---
Speech & Language Evaluation Speech/Language Mod Barium Swallow Start: 06/28/24 14:30 Freq: once Status: Complete Protocol: Document 06/28/24 14:30 [facility] (Rec: 06/28/24 14:45 [facility] laptop) Co-signed By ST Radha General Information General Current Food Consistancy Regular,Thin Liquids Dentition Good Dentition Oxygen Status Room Air Facial Symmetry Symmetrical Patient Orientation Person,Place,Time,Situation Ability to Follow Directions Excellent Communication Ability No Impairment MBS Recommendations Diet Dietary Recommendations Regular,Thin Liquids Treatment/Strategies Strategy/Precaution Recommend Sitting Upright (90 deg),Small Bites and Sips,Alternate Liquids/Solids Mod Barium Swallow Impressions Summary and Impressions Oral Phase Impression No Impairment (WFL) Oral Phase Summary No impairment of the oral phase of swallow. Labial closure was observed to be WFL . No oral residue or scattered loss was noted on any consistency trialed. Mastication and manipulation of bolus were noted to be WFL. Pharyngeal Phase Impression Mild Impairment Pharyngeal Phase Summary Mild impairment of pharyngeal phase of swallow. No aspiration/penetration was exhibited on any consistency trialed. Pt exhibited slightly reduced base of tongue retraction. Mild pharyngeal residue noted in vallecula, which was cleared with subsequent swallow and liquid wash. Hyolaryngeal excursion and elevation was observed to be WFL, resulting in adequate epiglottic coverage. Speech/Language MBS Assessment/Goals/Plan Assessment Date of Evaluation: 06/28/24 Evaluation Type Initial Certification Assessment/Problems chronic cough per MD order Does Patient Qualify for Service No Qualify/Failure Comment Based on clinical observations made throughout instrumental assessment (MBSS) and pt interview, further skilled speech therapy services are not warranted at this time d/t adequate airway closure and mastication and manipulation of bolus on all consistencies. Recommendations PHYSICIAN CERTIFICATION: The specified therapy services are required, authorized, and reviewed every 30 days. Diet Recommendations Normal Liquid Type Recommendations Normal/Thin SL Swallow Guidelines Standard Aspiration Prec.,Eat at slow rate Dysphagia Swallow Precautions/Strategies Sitting Upright (90 deg),Small Bites and Sips,Alternate Liquids/Solids Plan Pt/Guardian verbally ack understanding Yes of dx/prognosis/goals G -code Required No Education Instructions provided HOOKER INSPECTOR discussed clinical observations made throughout MBSS, diet recommendations, and compensatory strategies with pt who expressed understanding. Pt/Caregiver able to recall information Able to recall/restate Reinforcement needed No Mod Barium Swallow-Lat View Textures Lateral View Food Presentation Thin Liquid via Cup,Thin Liquid via Straw,Pureed Food- Thick,Mech. Soft Food- Regular ,Barium Tablet,Regular Food, Pudding Comment All bolus presentations were given x2 to assess for consistency and fatigue. Oral Phase Labial Closure No Impairment (WFL) Bolus Formation Pooling L/R No Impairment (WFL) Bolus Formation under Tongue No Impairment (WFL) Bolus Formation Scattered Loss No Impairment (WFL) Mastication Rotary Chew No Impairment (WFL) Mastication Munching No Impairment (WFL) Mastication Lateralization No Impairment (WFL) Lingual Movement No Impairment (WFL) Residue Clearing No Impairment (WFL) Pharyngeal Phase A/P Lingual Propulsion Spills No Impairment (WFL) Swallow Response Delay No Impairment (WFL) Base of Tongue Mild Impairment Epiglottic Coverage No Impairment (WFL) Laryngeal Elevation No Impairment (WFL) Vallecular Retention Clearing Mild Impairment Pharyn. Wall Residue Clearing No Impairment (WFL) Piriform Sinus Retention No Impairment (WFL) Aspiration? No Silent aspiration? No Mod Barium Swallow-AP View Performed Mod Barium Swallow A/P View Test Not Applicable/Performed PHYSICIAN CERTIFICATION: I certify the specified therapy services for [place] are required, authorized, and reviewed every 30 days.
== END 2024-06-28 23:59 | disposition home or self-care (01) ==
LOC: RAD 10:59
PROVIDERS: PCP Family Medicine; Visit Provider Family Medicine
DX: R05.3 Chronic cough (principal)
CPT/HCPCS: 74230; 92611

== ENCOUNTER 2024-07-19 14:21 | Outpatient (CLI) | payer MEDICARE, OTHER, SELFPAY ==
--- NOTE | 2024-07-19 14:28 | XR_ITS ---
FINAL REPORT CLINICAL HISTORY: RT SHOULDER PAIN, UNSPECIFIED CHRONICITY COMPARISON: None FINDINGS: 3 views of the right shoulder were obtained. There is no fracture or dislocation. Acromioclavicular degenerative changes present. Soft tissues are unremarkable. IMPRESSION: Acromioclavicular degenerative change, with no acute osseous abnormality of the right shoulder. Reviewed, Interpreted and Dictated by Katherine Palmer MD Transcribed by Melva Nolasco Authenticated and [facility]
== END 2024-07-19 23:59 | disposition home or self-care (01) ==
LOC: RAD 14:22
PROVIDERS: PCP Family Medicine; Visit Provider Family Medicine
DX: M25.511 Pain in right shoulder (principal)
CPT/HCPCS: 73030

== ENCOUNTER 2025-05-20 13:15 | Outpatient (CLI) | payer MEDICARE, OTHER, SELFPAY ==
--- OUTSIDE RECORDS SUMMARY | 2024-06-07 07:30 | XMS_ITS ---
[facility] Address [address] [place] [id number] Care Team Providers Care Agricultural Research Technician Name Role Phone Guillaume Dietz Primary Care Provider Allergies Allergen (clinical drug ingredient) Drug/Non Drug Allergy documented on EMR Reaction Allergy Type Onset Date Status amoxicillin Amoxicillin hives Drug Allergy Act carole Sulfamethoxazole hives Drug Allergy Active oxycodone oxyCODONE itching of skin Drug Allergy Active Penicillin Hives Drug Allergy Active Results Component Value Reference Range Notes PT/INR (in house) Reviewed date:06/08/2024 09:43:08 PM Interpretation: Performing Lab: Notes/Report: INR 2.7 current dose 5mg M&F, 2.5mg AOD new dose no change next check 6 weeks ideal INR 2-3 Modified barium swallow Reviewed date:08/16/2024 09:06:14 AM Interpretation: Performing Lab: Notes/Report: Modified barium swallow Reviewed date:08/16/2024 09:06:14 AM Interpretation: Performing Lab: Notes/Report: REASON FOR VISIT 6 week checkup Medications Medication SIG (Take, Route, Frequency, Duration) Notes Start Date End Date Status Propranolol HCl 80 MG TAKE 1/2 (ONE-HALF ) TABLET BY MOUTH ONCE DAILY FOR 90 DAYS; Duration: 90 Active Pravastatin Sodium 40 MG TAKE 1 TABLET B Y MOUTH ONCE DAILY AT BEDTIME Active DULoxetine HCl 30 MG Take 1 capsule by m outh once daily; Duration: 90 days Active valACYclovir HCl 1 GM 2 tablet Orally Tw o times a day 08/01/2023 Active Diclofenac Sodium 75 MG Take 1 tablet by mouth twice daily; Duration: 30 Active Warfarin Sodium 5 MG Take 1 tablet by mo uth once daily Active Melatonin 10 MG 1 cap(s) orally once a day (at bedtime) Active Hair Skin Nails - 1 cap(s) orally once a day Active Vitamin B-12 1000 MCG 1 tab(s) orally on ce a day Active Glucosamine Chond MSM Formula - 1 tab(s) orally 3 times a day Active Vitamin D3 50 MCG (1999 UT) 1 tab(s) ora lly twice a day 07/03/2010 Active Doxycycline Hyclate 100 MG 1 tab(s) oral ly once daily Active Calcium-Vitamin D-Minerals 600-400 MG-UNIT 1 tab(s) orally twice a day Active Vital Signs Blood pressure systolic 112 mm Hg 06/07/20 24 Blood pressure diastolic 74 mm Hg 024 Heart Rate 63 /min 06/07/2024 Height 65 in 06/07/2024 Weight 146 lbs 06/07/2024 BMI 24.29 kg/m2 06/07/2024 Encounters Encounter Location Date Provider Diagnosis [facility] [address] [place] [id number] 06/07/2024 Guillaume Dietz Recurrent deep vein thrombosis (DVT) I82.409 ; 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 and Chronic cough R05.3 Assessments Encounter Date Diagnosis (ICD Code) Assessment Notes Treatment Notes Treatment Clinical Notes Section Notes 06/07/2024 Recurrent deep vein thrombosis (DVT) (ICD-10 - I82.409) 06/07/2024 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 :1950 A ge:74 Y S ex:Female Date:06/07/2024 Address:[address] [place] [address] [place], [place], [id number] Subjective: * Chief Complaints: * 1 . 6 week checkup. * HPI: H ematology: 74 year old female presents with c/o PT/INR d ue for PT/INR. * ROS: A LLERGY: Cough y es, f or many months. D ERMATOLOGY: no R chris. n o H niranjan. G ASTROENTEROLOGY: no N ausea. n o V omiting. U ROLOGY: no D ifficulty urinating. n o B lood in urine. 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 * Surgical History: T ubal Ligation , Total Hysterectomy , Bladder Tack x 2 , Tonsillectomy , Cholecystectomy , Colonoscopy 2012, RT Broken Femur Repair- 05/28/2015, RT knee - Screw Repair 09/2018, RT Femur Repair, Removal of Hardware 04/24/2019. * Hospitalization/Major Diagno stic Procedure: R T Knee Pain- [facility] ER 01/21/2018, Surgery- 04/24/2019, RT Lower PE- [facility] 04/25-03/2019. * Family History: F ather: , colon cancer. M other: alive, ovarian cancer. S iblings: arthritis, HTN, skin cancer. C hildren: migraines. 1 brother(s) . 1 son(s) , 1 daughter(s) . . * Social History: C URRENT TOBACCO USE S moking Status: Patient does NOT smoke. C affeine: yes, frequency:. Marital Status: . Past smoking status: no, Smoking status: Does not smoke. Alcohol: No. * Medications: T aking Doxycycline Hyclate 100 MG Tablet 1 tab(s) orally once daily , Taking Vitamin D3 50 MCG (2000 UT) Tablet 1 tab(s) orally twice a day , Taking Calcium-Vitamin D-Minerals 600-400 MG-UNIT Tablet Chewable 1 tab(s) orally twice a day , Taking Glucosamine Chond MSM Formula - Tablet 1 tab(s) orally 3 times a day , Taking Vitamin B-12 1000 MCG Tablet 1 tab(s) orally once a day , Taking Hair Skin Nails - Capsule 1 cap(s) orally once a day , Taking Melatonin 10 MG Capsule 1 cap(s) orally once a day (at bedtime) , Taking valACYclovir HCl 1 GM Tablet 2 tablet Orally Two times a day , Taking DULoxetine HCl 30 MG Capsule Delayed Release Particles Take 1 capsule by mouth once daily , Taking Pravastatin Sodium 40 MG Tablet TAKE 1 TABLET BY MOUTH ONCE DAILY AT BEDTIME , Taking Propranolol HCl 80 MG Tablet TAKE 1/2 (ONE-HALF) TABLET BY MOUTH ONCE DAILY FOR 90 DAYS , Taking Warfarin Sodium 5 MG Tablet Take 1 tablet by mouth once daily , Taking Diclofenac Sodium 75 MG Tablet Delayed Release Take 1 tablet by mouth twice daily , Medication List reviewed and reconciled with the patient * Allergies: P enicillin: Hives - Allergy, oxyCODONE: itching of skin - Allergy, Amoxicillin: hives - Allergy, Sulfamethoxazole: hives - Allergy. Objective: * Vitals: W t:146, Temp:98.0, BP:112/74, HR:63, O2 Sat:97% on RA, Nurse:ezio, Ht: 65, BMI:24.29. * Examination: G eneral Examination: General Appearance: N AD. H eart: R SR. L ungs:?clear to auscultation. P eripheral pulses: n ormal (2+) bilaterally. E xtremities:?no leg edema. Assessment: * Assessment: 1. R ecurrent deep vein thrombosis (DVT) - I82.409 (Primary) 2 . L ana laura term current use of anticoagulant - Z79.01 3 . C hronic cough - R05.3 ? Plan: * Treatment: Value Reference Range I NR 2.7 * c urrent dose 5mg M&F, 2.5mg AOD * n ew dose no change * n ext check 6 weeks * i deal INR 2-3 * Imelda Granda 06/07/2024 11:34: 37 AM > , Provider reviewed results while patient in office.Guillaume Dietz 06/08/2024 9:43:03 PM > 2.?Chronic cough?Imaging: Modified barium swallow (Performed Date - 06/28/2024)* Carmenza Bro 06/07/2024 11:4 4:39 AM > no auth required; no auth required through secondary as it is a supplement; CPT code 07709; faxed to [facility] Fay Hubbard 06/08/2024 10:58:22 AM > [facility]28 [facility] 07/30[facility]2024 1:05:33 PM > Please obtain speech pathologist reportDeidre Krishna 08/13/2024 2:14:09 PM > Speech pathologist report in pt Odette Suazo 08/16/2024 9:06:12 AM > , See phone encounter * Procedure Codes: G 2211 Complex e/[place], [address] PROTHROMBIN TIME, Modifiers: QW , 049[address] CAPILLARY BLOOD DRAW * Follow Up: 6 Weeks * Images: Billing Information: * Visit Code: 25518 Office Visit, Est Pt., Level 3. * Procedure Codes: G2211 Complex e/[place]. [address] PROTHROMBIN TIME. Modifiers: QW 18282 CAPILLARY BLOOD DRAW. * Electronic signature of Mary Dietz MD on 05/20/2025 at 01:20 PM EDT Sign off status: Pending * Provider: Darnell Dietz M.D. Date: 08/07/2023 Generated for Printi ng/Faxing/eTransmitting on: 01:20 PM EDT History and Physical Notes * HPI (History of Present Illness) Category Sub-Category Detail Notes Category Not es Hematology PT/INR due for PT/INR Examination Category Sub-Category Detail Notes Category Not es General Examination Heart: RSR Lungs: clear to auscultatio n Extremities: no leg edema General Appearance: NAD Peripheral pulses: normal (2+) bilatera lly
--- OUTSIDE RECORDS SUMMARY | 2024-07-19 09:30 | XMS_ITS ---
Author Organization [facility] Address [address] [place] [id number] Care Team Providers Care Tip Cutter Name Role Phone Guillaume Dietz Primary Care Provider Allergies Allergen (clinical drug ingredient) Drug/Non Drug Allergy documented on EMR Reaction Allergy Type Onset Date Status amoxicillin Amoxicillin hives Drug Allergy Act carole Sulfamethoxazole hives Drug Allergy Active oxycodone oxyCODONE itching of skin Drug Allergy Active Penicillin Hives Drug Allergy Active Results Component Value Reference Range Notes PT/INR (in house) Reviewed date:07/19/2024 01:58:14 PM Interpretation: Performing Lab: Notes/Report: INR 2.5 current dose 5mg M&F, 2.5mg AOD new dose no change next check 6 weeks ideal INR 2-3 X ray : Shoulder, right Reviewed date:07/20/2024 09:33:41 AM Interpretation:acromionavicular degenerative change Performing Lab: Notes/Report: acromionavicular degenerative change REASON FOR VISIT PT/INR Medications Medication SIG (Take, Route, Frequency, Duration) Notes Start Date End Date Status Calcium-Vitamin D-Minerals 600-400 MG-UNIT 1 tab(s) orally twice a day Active Glucosamine Chond MSM Formula - 1 tab(s) orally 3 times a day Active Vitamin B-12 1000 MCG 1 tab(s) orally on ce a day Active Hair Skin Nails - 1 cap(s) orally once a day Active Melatonin 10 MG 1 cap(s) orally once a day (at bedtime) Active Vitamin D3 50 MCG (1999 UT) 1 tab(s) ora lly twice a day 07/03/2010 Active Propranolol HCl 80 MG Take 1/2 (one-half ) tablet by mouth once daily; Duration: 90 Active Diclofenac Sodium 75 MG Take 1 tablet by mouth twice daily; Duration: 30 Active Doxycycline Hyclate 100 MG 1 tab(s) oral ly once daily Active Pravastatin Sodium 40 MG 1 tablet Orally Once a day; Duration: 90 days Active valACYclovir HCl 1 GM 2 tablet Orally Tw o times a day 08/01/2023 Active DULoxetine HCl 30 MG Take 1 capsule by m outh once daily; Duration: 90 days Active Warfarin Sodium 5 MG Take 1 tablet by uth once daily Active Vital Signs Blood pressure systolic 108 mm Hg 07/19/20 24 Blood pressure diastolic 64 mm Hg 024 Heart Rate 72 /min 07/19/2024 Height 65 in 07/19/2024 Weight 143.6 lbs 07/19/2024 BMI 23.89 kg/m2 07/19/2024 Encounters Encounter Location Date Provider Diagnosis [facility] [address] [facility] [address] [facility] [address] [place], [place] [id number] 07/19/2024 Guillaume Dietz Recurrent deep vein thrombosis (DVT) I82.409 ; 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 and Right shoulder pain, unspecified chronicity M25.511 Assessments Encounter Date Diagnosis (ICD Code) Assessment Notes Treatment Notes Treatment Clinical Notes Section Notes 07/19/2024 Recurrent deep vein thrombosis (DVT) (ICD-10 - I82.409) 07/19/2024 skilled nursing current use of anticoagulant (ICD-10 - Z79.01) 07/19/2024 Right shoulder pain, unspecified chronicity (ICD-10 - M25.511) Plan Of Treatment Next Appt Details Follow Up: 6 Weeks, Reason: Provider Name:Guillaume Perrin ry, 06/29/2025 11:30:00 AM, [address] [facility] 36 [facility], [address], [place], [id number], Progress Notes * MARIANNE PAGE RDOB: [birth year] (75 yo F)Acc No.[id number]:07/19/2024 Patient: MARIANNE MATOS Provider: Darnell Dietz M.D. :1950 A ge:74 Y S ex:Female Date:07/19/2024 Address:[address] [place] [address] [place], [id number] Subjective: * Chief Complaints: * 1 . PT/INR. * HPI: H ematology: 74 year old female presents with c/o PT/INR d ue for PT/INR. * ROS: D ERMATOLOGY: no R chris. n o H niranjan. G ASTROENTEROLOGY: no N ausea. n o V omiting. U ROLOGY: no D ifficulty urinating. n o B lood in urine. * Medical History: M igraines, Hyperlipidemia, Osteopenia/ Osteoporosis, Ciso - Dr. Singh, Colon polyps, Diverticulosis, Colonoscopy- [...] Urinary Retention, 06/2021, Osteoarthritis, left knee. * Medications: T aking Doxycycline Hyclate 100 [...] capsule by mouth once daily , Taking Warfarin Sodium 5 MG Tablet Take 1 tablet by mouth once daily , Taking Diclofenac Sodium 75 MG Tablet Delayed Release Take 1 tablet by mouth twice daily , Taking Pravastatin Sodium 40 MG Tablet 1 tablet Orally Once a day , Taking Propranolol HCl 80 MG Tablet Take 1/2 (one-half) tablet by mouth once daily , Medication List reviewed and reconciled with the patient * Allergies: P enicillin: Hives - Allergy, oxyCODONE: itching of skin - Allergy, Amoxicillin: hives - Allergy, Sulfamethoxazole: hives - Allergy. Objective: * Vitals: W t:143.6, Temp:97.8, BP:108/64, HR:72, Nurse:ezio, Ht: 65, BMI:23.89. * Examination: G eneral Examination: General Appearance: N AD. S houlder / Upper arm: Shoulder: right. I nspection: n o swelling or redness. P alpation: tenderness over AC joint. R rita of motion: normal flexion, extension & rotation. S trength: diminished supraspinatus strength. ? Assessment: * Assessment: 1. R ecurrent deep vein thrombosis (DVT) - I82.409 (Primary) 2 . L ana laura term current use of anticoagulant - Z79.01 3 . R ight shoulder pain, unspecified chronicity - M25.511 Plan: * Treatment: Value Reference Range I NR 2.5 * c urrent dose 5mg M&F, 2.5mg AOD * n ew dose no change * n ext check 6 weeks * i deal INR 2-3 * Imelda Granda 07/19/2024 1:35:5 1 PM > , Provider reviewed results while patient in office.Guillaume Dietz 07/19/2024 1:58:07 PM > 2.?Right shoulder pain, unspecified chronicity?Imaging: X ray : Shoulder, right (Performed Date - 07/19/2024)? acromionavicular degenerative change* Odette Oh 07/20/2024 9:33 :38 AM > , See phone encounter * Procedure Codes: G 2211 Complex e/[place], [address] PROTHROMBIN TIME, Modifiers: QW , 46513 CAPILLARY BLOOD DRAW, 3074F SYST BP LT 130 MM HG, 3079F DIAST BP 80-89 MM HG * Follow Up: 6 Weeks * Images: Billing Information: * Visit Code: 86015 Office Visit, Est Pt., Level 3. * Procedure Codes: G2211 Complex e/[place]. [address] PROTHROMBIN TIME. Modifiers: QW 66356 CAPILLARY BLOOD DRAW. 3074F SYST BP LT 130 MM HG. 3079F DIAST BP 80-89 MM HG. * Electronic signature of Mary Dietz MD on 05/20/2025 at 01:21 PM EDT Sign off status: Pending * Provider: Darnell Dietz M.D. Date: Generated for Miranda lopez/Britt/eTransmitting on: 01:21 PM EDT History and Physical Notes * HPI (History of Present Illness) Category Sub-Category Detail Notes Category Not es Hematology PT/INR due for PT/INR Examination Category Sub-Category Detail Notes Category Not es General Examination General Appearance: NAD Shoulder / Upper arm Range of motion: normal fle xion, extension & rotation Strength: diminished supraspin atus strength Shoulder: right Inspection: no swelling or redne ss Palpation: tenderness over AC j oint
--- OUTSIDE RECORDS SUMMARY | 2024-08-16 10:30 | XMS_ITS ---
Author Organization [facility] Address [address] [place] [id number] Care Team Providers Care Surveyor Geophysical Prospecting Name Role Phone Guillaume Dietz Primary Care Provider [phone] Allergies Allergen (clinical drug ingredient) Drug/Non Drug Allergy documented on EMR Reaction Allergy Type Onset Date Status amoxicillin Amoxicillin hives Drug Allergy Act carole Sulfamethoxazole hives Drug Allergy Active oxycodone oxyCODONE itching of skin Drug Allergy Active Penicillin Hives Drug Allergy Active REASON FOR VISIT left knee pain Medications Medication SIG (Take, Route, Frequency, Duration) Notes Start Date End Date Status Pravastatin Sodium 40 MG 1 tablet Orally Once a day; Duration: 90 days Active Warfarin Sodium 5 MG Take 1 tablet by mo uth once daily Active DULoxetine HCl 30 MG Take 1 capsule by m outh once daily; Duration: 90 Active Propranolol HCl 80 MG Take 1/2 (one-half ) tablet by mouth once daily; Duration: 90 Active Diclofenac Sodium 75 MG 1 tablet orally Once a day Active valACYclovir HCl 1 GM 2 tablet Orally Tw o times a day 08/01/2023 Active Vitamin B-12 1000 MCG 1 tab(s) orally on ce a day Active Glucosamine Chond MSM Formula - 1 tab(s) orally 3 times a day Active Melatonin 10 MG 1 cap(s) orally once a day (at bedtime) Active Hair Skin Nails - 1 cap(s) orally once a day Active Doxycycline Hyclate 100 MG 1 tab(s) oral ly once daily Active Calcium-Vitamin D-Minerals 600-400 MG-UNIT 1 tab(s) orally twice a day Active Vitamin D3 50 MCG (1999) 1 tab(s) ora lly twice a day 07/03/2010 Active Vital Signs Blood pressure systolic 114 mm Hg 08/16/19 25 Blood pressure diastolic 70 mm Hg 025 Heart Rate 71 /min 08/16/2024 Height 65 in 08/16/2024 Weight 144 lbs 08/16/2024 BMI 23.96 kg/m2 08/16/2024 Encounters Encounter Location Date Provider Diagnosis [facility] [address] [facility] 36 [facility] [address] [place], [place] [id number] 08/16/2024 Guillaume Dietz Acute pain of left knee M25.562 Assessments Encounter Date Diagnosis (ICD Code) Assessment Notes Treatment Notes Treatment Clinical Notes Section Notes 08/16/2024 Acute pain of left knee (ICD-10 - M25.562) Symptoms have already improved, plan rest, ice, compression and elevation Plan Of Treatment Treatment Notes Assessment Notes Acute pain of left knee Symptoms have al ready improved, plan rest, ice, compression and elevation Next Appt Details Follow Up: as scheduled,and prn, Reason: Provider Name:Guillaume Perrin ry, 06/29/2025 11:30:00 AM, [address] [facility] 36 [facility], [address], [place], [phone], Progress Notes * KAYLEEMARIANNE RDOB: [birth year] (75 yo F)Acc No.[id number]:08/16/2024 Progress Notes Patient: MARIANNE MATOS Provider: Darnell Dietz M.D. :1950 A ge:74 Y S ex:Female Date:08/16/2024 Address:[address] [place] [address], [id number] Subjective: * Chief Complaints: * 1 . Left knee pain. * HPI: K nee/Willson: 74 year old female presents with c/o knee pain P t complains of pain in the back of her lt knee since Joni night. Pt states pain was so bad last night that she hardly sleep . Pt states she thought she could feel swelling but is not sure. Pt tried to put Biofreeze on the area but has not had any relief . * ROS: D ERMATOLOGY: no R chris. n o H niranjan. G ASTROENTEROLOGY: no N ausea. n o V omiting. U ROLOGY: no D ifficulty urinating. n o B lood in urine. 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 * Family History: F ather: , [...] Orally Two times a day , Taking Warfarin Sodium 5 MG Tablet Take 1 tablet by mouth once daily , Taking Pravastatin Sodium 40 MG Tablet 1 tablet Orally Once a day , Taking Propranolol HCl 80 MG Tablet Take 1/2 (one-half) tablet by mouth once daily , Taking DULoxetine HCl 30 MG Capsule Delayed Release Particles Take 1 capsule by mouth once daily , Taking Diclofenac Sodium 75 MG Tablet Delayed Release 1 tablet orally Once a day , Medication List reviewed and reconciled with the patient * Allergies: P enicillin: Hives - Allergy, oxyCODONE: itching of skin - Allergy, Amoxicillin: hives - Allergy, Sulfamethoxazole: hives - Allergy. Objective: * Vitals: W t:144, Temp:97.9, BP:114/70, HR:71, Nurse:ezio, Ht: 65, BMI:23.96. * Examination: G eneral Examination: General Appearance: N AD. K nee / Willson: Knee: left. I nspection: n o swelling or redness.?Palpation: n o tenderness on joint lines or collateral ligaments. C ollateral ligaments: intact medially and laterally. R rita of motion: n ormal flexion and extension. Patellofemoral joint: n o crepitations. Assessment: * Assessment: 1. A cute pain of left knee - M25.562 (Primary) Plan: * Treatment: * Procedure Codes: G 2211 Complex e/m visit add on * Follow Up: a s scheduled,and prn * Images: Billing Information: * Visit Code: 79651 Office Visit, Est Pt., Level 3. * Procedure Codes: G2211 Complex e/m visit add on. * Electronic signature of Mray Dietz MD on 05/20/2025 at 01:21 PM EDT Sign off status: Pending * Provider: Darnell Dietz M.D. Date: 0 08/16/2024 Generated for Miranda lopez/Britt/Dmitriysmitting on: 1 01:21 PM EDT History and Physical Notes * HPI (History of Present Illness) Category Sub-Category Detail Notes Category Not es Knee/Willson knee pain Pt complains of pain in the back of her lt knee since Friday night. Pt states pain was so bad last night that she hardly sleep . Pt states she thought she could feel swelling but is not sure. Pt tried to put Biofreeze on the area but has not had any relief Examination Category Sub-Category Detail Notes Category Not es General Examination General Appearance: NAD Knee / Willson Patellofemoral joint: no crepitations Palpation: no tenderness on sindy nt lines or collateral ligaments Knee: left Inspection: no swelling or redne ss Range of motion: normal flexion and e xtension Collateral ligaments: intact medially an d laterally
--- OUTSIDE RECORDS SUMMARY | 2024-08-30 11:45 | XMS_ITS ---
Author Organization [facility] Address [address] [place] [id number] Care Team Providers Care Addressograph Operator Name Role Phone Guillaume Dietz Primary Care Provider [phone] Allergies Allergen (clinical drug ingredient) Drug/Non Drug Allergy documented on EMR Reaction Allergy Type Onset Date Status amoxicillin Amoxicillin hives Drug Allergy Act carole Sulfamethoxazole hives Drug Allergy Active oxycodone oxyCODONE itching of skin Drug Allergy Active Penicillin Hives Drug Allergy Active Results Component Value Reference Range Notes PT/INR (in house) Reviewed date:08/31/2024 09:26:46 AM Interpretation: Performing Lab: Notes/Report: INR 2.3 current dose 5mg M&F, 2.5mg AOD new dose no change next check 6 weeks ideal INR 2-3 REASON FOR VISIT 6 week ckup Medications Medication SIG (Take, Route, Frequency, Duration) Notes Start Date End Date Status Diclofenac Sodium 75 MG 1 tablet orally Once a day Active DULoxetine HCl 30 MG Take 1 capsule by m outh once daily; Duration: 90 Active Propranolol HCl 80 MG Take 1/2 (one-half ) tablet by mouth once daily; Duration: 90 Active Pravastatin Sodium 40 MG 1 tablet Orally Once a day; Duration: 90 days Active Warfarin Sodium 5 MG Take 1 tablet by mo uth once daily Active valACYclovir HCl 1 GM 2 tablet Orally Tw o times a day 08/01/2023 Active Melatonin 10 MG 1 cap(s) orally [...] Signs Blood pressure systolic 112 mm Hg 08/30/19 25 Blood pressure diastolic 68 mm Hg 025 Heart Rate 71 /min 08/30/2024 Height 65 in 08/30/2024 Weight 143 lbs 08/30/2024 BMI 23.79 kg/m2 08/30/2024 Encounters Encounter Location Date Provider Diagnosis [facility] [address] [facility] 36 [facility] [address] [place], [place] [phone] 08/30/2024 Guillaume Dietz Recurrent deep vein thrombosis (DVT) I82.409 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 Assessments Encounter Date Diagnosis (ICD Code) Assessment Notes Treatment Notes Treatment Clinical Notes Section Notes 08/30/2024 Recurrent deep vein thrombosis (DVT) (ICD-10 - I82.409) 08/30/2024 halfway current use of anticoagulant (ICD-10 - Z79.01) Plan Of Treatment Next Appt Details Follow Up: 6 Weeks, Reason: Provider Name:Guillaume Perrin ry, 06/29/2025 11:30:00 AM, [address] [facility] 36 [facility], [address], [place], [place], [phone], Progress Notes * MARIANNE PAGE RDOB: [birth year] (75 yo F)Acc No.[id number]:08/30/2024 Progress Notes Patient: MARIANNE MATOS Provider: Darnell Dietz M.D. :1950 A ge:74 Y S ex:Female Date:08/30/2024 Address:[address] [place] [address], [place] [id number] Subjective: * Chief Complaints: * 1 . 6 week ckup. * HPI: H ematology: 74 year old female presents with c/o PT/INR d ue for PT/INR. * ROS: D ERMATOLOGY: no R chris. n o H niranjan. G ASTROENTEROLOGY: no N ausea. n o V omiting. U ROLOGY: no D ifficulty urinating. n o B lood in urine. 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 * Family History: F ather: , [...] hives - Allergy. Objective: * Vitals: W t:143, Temp:97.7, BP:112/68, HR:71, Nurse:ezio, Ht: 65, BMI:23.79. * Examination: G eneral Examination: General Appearance: N AD. H eart: R SR. L ungs:?clear to auscultation. P eripheral pulses: n ormal (2+) bilaterally. E xtremities:?no leg edema. Assessment: * Assessment: 1. R ecurrent deep vein thrombosis (DVT) - I82.409 (Primary) 2 . L ana laura term current use of anticoagulant - Z79.01 Plan: * Treatment: Value Reference Range I NR 2.3 * c urrent dose 5mg M&F, 2.5mg AOD * n ew dose no change * n ext check 6 weeks * i deal INR 2-3 * Imelda Granda 08/30/2024 4:02:06 PM > , Provider reviewed results while patient in office.Guillaume Dietz 08/30/2024 4:09:51 PM > * Procedure Codes: G 2211 Complex e/[place], [address] PROTHROMBIN TIME, Modifiers: QW , 55793 CAPILLARY BLOOD DRAW, 3074F SYST BP LT 130 MM HG, 3078F DIAST BP < 80 MM HG * Follow Up: 6 Weeks * Images: Billing Information: * Visit Code: 31368 Office Visit, Est Pt., Level 3. * Procedure Codes: G2211 Complex e/[place]. [address] PROTHROMBIN TIME. Modifiers: QW 62313 CAPILLARY BLOOD DRAW. 3074F SYST BP LT 130 MM HG. 3078F DIAST BP < 80 MM HG. * Electronic signature of Mary Dietz MD on 05/20/2025 at 01:20 PM EDT Sign off status: Pending * Provider: Darnell Dietz M.D. Date: 0 08/30/2024 Generated for Miranda lopez/Britt/Sreeitting on: 01:20 PM EDT History and Physical Notes * HPI (History of Present Illness) Category Sub-Category Detail Notes Category Not es Hematology PT/INR due for PT/INR Examination Category Sub-Category Detail Notes Category Not es General Examination Heart: RSR Lungs: clear to auscultatio n Extremities: no leg edema General Appearance: NAD Peripheral pulses: normal (2+) bilatera lly
--- OUTSIDE RECORDS SUMMARY | 2024-10-11 07:30 | XMS_ITS ---
Author Organization [facility] Address [address] [place] [id number] Care Team Providers Care Patternmaker Bench Name Role Phone Guillaume Dietz Primary Care Provider Allergies Allergen (clinical drug ingredient) Drug/Non Drug Allergy documented on EMR Reaction Allergy Type Onset Date Status amoxicillin Amoxicillin hives Drug Allergy Act carole Sulfamethoxazole hives Drug Allergy Active oxycodone oxyCODONE itching of skin Drug Allergy Active Penicillin Hives Drug Allergy Active Results Component Value Reference Range Notes PT/INR (in house) Reviewed date:10/12/2024 11:32:35 AM Interpretation: Performing Lab: Notes/Report: INR 2.7 current dose 5mg M&F, 2.5mg AOD new dose no change next check 6 weeks ideal INR 2-3 REASON FOR VISIT 6 week ckup Medications Medication SIG (Take, Route, Frequency, Duration) Notes Start Date End Date Status valACYclovir HCl 1 GM 2 tablet Orally Tw o times a day 08/01/2023 Active DULoxetine HCl 30 MG Take 1 capsule by m outh once daily; Duration: 90 Active Diclofenac Sodium 75 MG 1 tablet orally Once a day Active Pravastatin Sodium 40 MG 1 tablet Orally Once a day; Duration: 90 days Active Propranolol HCl 80 MG Take 1/2 (one-half ) tablet by mouth once daily; Duration: 90 Active Melatonin 10 MG 1 cap(s) orally once a day (at bedtime) Active Vitamin B-12 1000 MCG 1 tab(s) orally on a day Active Calcium-Vitamin D-Minerals 600-400 MG-UNIT 1 tab(s) orally twice a day Active Hair Skin Nails - 1 cap(s) orally once a day Active Glucosamine Chond Cmp Advanced - as directed Orally Active Doxycycline Hyclate 100 MG 1 tab(s) oral ly once daily Active Warfarin Sodium 5 MG Take 1 tablet by mo ut once daily Active Vitamin D3 50 MCG (1999) 1 tab(s) ora lly twice a day 07/03/2010 Active Vital Signs Blood pressure systolic 110 mm Hg 10/12/19 25 Blood pressure diastolic 64 mm Hg 025 Heart Rate 56 /min 10/11/2024 Height 65 in 10/11/2024 Weight 146.2 lbs 10/11/2024 BMI 24.33 kg/m2 10/11/2024 Encounters Encounter Location Date Provider Diagnosis [facility] [address] [place] [address] [address] [facility] [address] [place], [place] [id number] 10/11/2024 Guillaume Dietz Recurrent deep vein thrombosis (DVT) I82.409 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 Assessments Encounter Date Diagnosis (ICD Code) Assessment Notes Treatment Notes Treatment Clinical Notes Section Notes 10/11/2024 Recurrent deep vein thrombosis (DVT) (ICD-10 - I82.409) 10/11/2024 nursing home current use of anticoagulant (ICD-10 - Z79.01) Plan Of Treatment Medication Medication Name Sig Start Date Stop Date Notes Warfarin Sodium 5 MG Take 1 tablet by mouth once daily Next Appt Details Follow Up: 6 Weeks, Reason: Provider Name:Guillaume Perrin , 06/29/2025 11:30:00 AM, [address] [facility] [address] [facility], [address], [place], [place], [id number], Progress Notes * MARIANNE PAGE RDOB: [birth year] (75 yo F)Acc No.[id number]:10/11/2024 Progress Notes Patient: AMANDA MATOSNA Rupali Provider: Darnell Dietz M.D. :1950 A ge:74 Y S ex:Female Date:10/11/2024 Address:[address] [place] [address] [place] [id number] Subjective: * Chief Complaints: * 1 . 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 * Family History: F ather: [...] smoke. Alcohol: No. * Medications: T aking Glucosamine Chond Cmp Advanced - Tablet as directed Orally , Taking Doxycycline Hyclate 100 MG Tablet 1 tab(s) orally once daily , Taking Vitamin D3 50 MCG (2000 UT) Tablet 1 tab(s) orally twice a day , Taking Calcium-Vitamin D-Minerals 600-400 MG-UNIT Tablet Chewable 1 tab(s) orally twice a day , Taking Vitamin B-12 1000 MCG Tablet 1 tab(s) orally once a day , Taking Hair Skin Nails - Capsule 1 cap(s) orally once a day , Taking Melatonin 10 MG Capsule 1 cap(s) orally once a day (at bedtime) , Taking valACYclovir HCl 1 GM Tablet 2 tablet Orally Two times a day , Taking Pravastatin Sodium 40 MG Tablet 1 tablet Orally Once a day , Taking Propranolol HCl 80 MG Tablet Take 1/2 (one-half) tablet by mouth once daily , Taking DULoxetine HCl 30 MG Capsule Delayed Release Particles Take 1 capsule by mouth once daily , Taking Diclofenac Sodium 75 MG Tablet Delayed Release 1 tablet orally Once a day , Taking Warfarin Sodium 5 MG Tablet Take 1 tablet by mouth once daily , Discontinued Glucosamine Chond MSM Formula - Tablet 1 tab(s) orally 3 times a day , Medication List reviewed and reconciled with the patient * Allergies: P enicillin: Hives - Allergy, oxyCODONE: itching of skin - Allergy, Amoxicillin: hives - Allergy, Sulfamethoxazole: hives - Allergy. Objective: * Vitals: W t:146.2, Temp:97.8, BP:110/64, HR:56, Nurse:ezio, Ht: 65, BMI:24.33. * Examination: G eneral Examination: General Appearance: [...] i deal INR 2-3 * Imelda Granda 10/11/2024 12:11:5 7 PM > , Provider reviewed results while patient in office.Guillaume Dietz 10/11/2024 2:20:45 PM > * Procedure Codes: G 2211 Complex e/[place], [address] PROTHROMBIN TIME, Modifiers: QW , 53759 CAPILLARY BLOOD DRAW, 3074F SYST BP LT 130 MM HG, 3078F DIAST BP < 80 MM HG * Follow Up: 6 Weeks * Images: Billing Information: * Visit Code: 15783 Office Visit, Est Pt., Level 3. * Procedure Codes: G2211 Complex e/[place]. [address] PROTHROMBIN TIME. Modifiers: QW 81815 CAPILLARY BLOOD DRAW. 3074F SYST BP LT 130 MM HG. 3078F DIAST BP < 80 MM HG. * Electronic signature of Mary Dietz MD on 05/20/2025 at 01:19 PM EDT Sign off status: Pending * Provider: Darnell Dietz M.D. Date: 0 10/11/2024 Generated for Miranda lopez/Britt/Sreeitting on: 1 01:19 PM EDT History and Physical Notes * HPI (History of Present Illness) Category Sub-Category Detail Notes Category Not es Hematology PT/INR due for PT/INR Examination Category Sub-Category Detail Notes Category Not es General Examination Heart: RSR Lungs: clear to auscultatio n Extremities: no leg edema General Appearance: NAD Peripheral pulses: normal (2+) bilatera lly
--- OUTSIDE RECORDS SUMMARY | 2024-11-22 07:00 | XMS_ITS ---
Author Organization [facility] Address [address] [place] [id number] Care Team Providers Care Real Estate Leasing Agent Name Role Phone Andrew Dietzian Primary Care Provider [phone] Allergies Allergen (clinical drug ingredient) Drug/Non Drug Allergy documented on EMR Reaction Allergy Type Onset Date Status amoxicillin Amoxicillin hives Drug Allergy Act carole Sulfamethoxazole hives Drug Allergy Active oxycodone oxyCODONE itching of skin Drug Allergy Active Penicillin Hives Drug Allergy Active Results Component Value Reference Range Notes PT/INR (in house) Reviewed date:11/23/2024 02:06:14 PM Interpretation:2.4 Performing Lab: Notes/Report: 2.4 PT 29.0 INR 2.4 current dose 5 mg MF, 2.5 mg AOD new dose no change next check 6 weeks ideal INR 2-3 REASON FOR VISIT 6 week f/u Medications Medication SIG (Take, Route, Frequency, Duration) Notes Start Date End Date Status Hair Skin Nails - 1 cap(s) orally once a day Active Melatonin 10 MG 1 cap(s) orally once a day (at bedtime) Active Vitamin B-12 1000 MCG 1 tab(s) orally on a day Active Pravastatin Sodium 40 MG 1 tablet Orally Once a day; Duration: 90 days Active Calcium-Vitamin D-Minerals 600-400 MG-UNIT 1 tab(s) orally twice a day Active Vitamin D3 50 MCG (1999 UT) 1 tab(s) ora lly twice a day 07/03/2010 Active Glucosamine Chond Cmp Advanced - as directed Orally Active Doxycycline Hyclate 100 MG 1 tab(s) oral ly once daily Active valACYclovir HCl 1 GM Take 2 tablets by mouth twice daily; Duration: 1 Active Warfarin Sodium 5 MG Take 1 tablet by mo [facility] once daily Active Diclofenac Sodium 75 MG 1 tablet orally Once a day Active Propranolol HCl 80 MG Take 1/2 (one-half ) tablet by mouth once daily; Duration: 90 Active DULoxetine HCl 30 MG Take 1 capsule by m [facility] once daily; Duration: 90 Active Vital Signs Blood pressure systolic 116 mm Hg 11/23/19 25 Blood pressure diastolic 60 mm Hg 025 Heart Rate 56 /min 11/22/2024 Height 65 in 11/22/2024 Weight 148.4 lbs 11/22/2024 BMI 24.69 kg/m2 11/22/2024 Encounters Encounter Location Date Provider Diagnosis [facility] 36 [facility] [address] [place] [phone] 11/22/2024 Guillaume Dietz assisted current us e of anticoagulant Z79.01 ; Recurrent deep vein thrombosis (DVT) I82.409 ; Mixed hyperlipidemia E78.2 ; Anxiety F41.9 and BMI 24.0-24.9, adult Z68.24 Assessments Encounter Date Diagnosis (ICD Code) Assessment Notes Treatment Notes Treatment Clinical Notes Section Notes 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 (ICD-10 - Z79.01) 11/22/2024 Recurrent deep vein thrombosis (DVT) (ICD-10 - I82.409) 11/22/2024 Mixed hyperlipidemia (ICD-10 - E78.2) 11/22/2024 Anxiety (ICD-10 - F41.9) 11/22/2024 BMI 24.0-24.9, adult (ICD-10 - Z68.24) Plan Of Treatment Medication Medication Name Sig Start Date Stop Date Notes Warfarin Sodium 5 MG Take 1 tablet by mouth once daily Next Appt Details Follow Up: 6 Weeks, Reason: Provider Name:Guillaume escudero, 06/29/2025 11:30:00 AM, [address] [facility] 36 [facility], [address], [place], [phone], Progress Notes * MARIANNE PAGE RDOB: [birth year] (75 yo F)Acc No.[id number]:11/22/2024 Progress Notes Patient: MARIANNE MATOS Provider: Darnell Dietz M.D. :1950 A ge:74 Y S ex:Female Date:11/22/2024 Address:[address] [place] [address] [place], [id number] Subjective: * Chief Complaints: * 1 . 6 week f/u. * HPI: H ematology: 74 year old female presents with c/o PT/INR d ue for PT/INR. * ROS: D ERMATOLOGY: no R chris. n o H niranjan. G ASTROENTEROLOGY: no N ausea. n o V omiting. U ROLOGY: no D ifficulty urinating. n o B lood in urine. 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 * Family History: F ather: , [...] once a day (at bedtime) , Taking Pravastatin Sodium 40 MG Tablet [...] capsule by mouth once daily , Taking valACYclovir HCl 1 GM Tablet Take 2 tablets by mouth twice daily , Medication List reviewed and reconciled with the patient * Allergies: P enicillin: Hives - Allergy, oxyCODONE: itching of skin - Allergy, Amoxicillin: hives - Allergy, Sulfamethoxazole: hives - Allergy. Objective: * Vitals: W t: 148.4, Temp: 97.8, BP: 116/60, HR: 56, Nurse: BONITA, Ht: 65, BMI:24.69. * Examination: G eneral Examination: General Appearance: N AD. H eart: R SR. L ungs:?clear to auscultation. P eripheral pulses: n ormal (2+) bilaterally. E xtremities:?no leg edema. Assessment: * Assessment: 1. R ecurrent deep vein thrombosis (DVT) - I82.409 (Primary) 2 . L ana laura term current use of anticoagulant - Z79.01 3 . M ixed hyperlipidemia - E78.2 ? 4 . A nxiety - F41.9 5 . B AK 24.0-24.9, adult - Z68.24 ? Plan: * Treatment: 2. L ana laura term current use of anticoagulant L AB: PT/INR (in house) (Collection Date & Time - 11/22/2024) 2 .4 Value Reference Range P T 29.0 * I NR 2.4 * c urrent dose 5 mg MF, 2.5 mg AOD * n ew dose no change * n ext check 6 weeks * i deal INR 2-3 * Susan Chan 11/22/2024 11:2 3:20 AM > * Procedure Codes: G 2211 Complex e/[place], [address] PROTHROMBIN TIME, Modifiers: QW , 24801 CAPILLARY BLOOD DRAW, 3074F SYST BP LT 130 MM HG, 3078F DIAST BP < 80 MM HG * Follow Up: 6 Weeks * Images: Billing Information: * Visit Code: 32801 Office Visit, Est Pt., Level 3. * Procedure Codes: G2211 Complex e/[place]. [address] PROTHROMBIN TIME. Modifiers: QW 56963 CAPILLARY BLOOD DRAW. 3074F SYST BP LT 130 MM HG. 3078F DIAST BP < 80 MM HG. * Electronic signature of Mary Dietz MD on 05/20/2025 at 01:19 PM EDT Sign off status: Pending * Provider: Darnell Dietz M.D. Date: 0 11/22/2024 Generated for Miranda ng/Fanerissag/eTransmitting on: 1 01:19 PM EDT History and [...]
--- OUTSIDE RECORDS SUMMARY | 2025-01-03 07:30 | XMS_ITS ---
[facility] Address [address] [place] [id number] Care Team Providers Care Admissions Assistant Name Role Phone Guillaume Dietz Primary Care Provider [phone] Allergies Allergen (clinical drug ingredient) Drug/Non Drug Allergy documented on EMR Reaction Allergy Type Onset Date Status amoxicillin Amoxicillin hives Drug Allergy Act carole Sulfamethoxazole hives Drug Allergy Active oxycodone oxyCODONE itching of skin Drug Allergy Active Penicillin Hives Drug Allergy Active Results Component Value Reference Range Notes PT/INR (in house) Reviewed date:01/04/2025 10:28:22 AM Interpretation: Performing Lab: Notes/Report: INR 2.9 current dose 5mg M,F, 2.5mg AOD new dose no change next check 6 weeks ideal INR 2-3 REASON FOR VISIT 6 weeks Medications Medication SIG (Take, Route, Frequency, Duration) Notes Start Date End Date Status valACYclovir HCl 1 GM Take 2 tablets by mouth twice daily; Duration: 1 Active DULoxetine HCl 30 MG Take 1 capsule by m outh once daily; Duration: 90 Active Diclofenac Sodium 75 MG 1 tablet orally Once a day Active Pravastatin Sodium 40 MG Take 1 tablet b y mouth once daily; Duration: 90 Active Warfarin Sodium 5 MG Take 1 tablet by mo uth once daily Active Propranolol HCl 80 MG Take 1/2 (one-half ) tablet by mouth once daily; Duration: 90 Active Calcium-Vitamin D-Minerals 600-400 MG-UNIT 1 tab(s) orally twice a day Active Hair Skin Nails - 1 cap(s) orally once a day Active Vitamin B-12 1000 MCG 1 tab(s) orally on ce a day Active Melatonin 10 MG 1 cap(s) orally once a day (at bedtime) Active Vitamin D3 50 MCG (1999 UT) 1 tab(s) ora lly twice a day 07/03/2010 Active Doxycycline Hyclate 100 MG 1 tab(s) oral ly once daily Active Glucosamine Chond Cmp Advanced - as directed Orally Active Problems Problem Type SNOMED Code ICD Code Onset Dates Problem Status W/U Status Risk Notes Problem Chronic pain (79614729) Other chronic pain (G89.29) Active confirmed Vital Signs Blood pressure systolic 112 mm Hg 01/04/20 25 Blood pressure diastolic 60 mm Hg 025 Heart Rate 56 /min 01/03/2025 Height 65 in 01/03/2025 Weight 148.4 lbs 01/03/2025 BMI 24.69 kg/m2 01/03/2025 Encounters Encounter Location Date [facility] [address] [facility] [address] [place] [id number] 01/03/2025 Guillaume Dietz Recurrent deep vein thrombosis (DVT) I82.409 ; jail current use of anticoagulant Z79.01 ; Polyarthralgia M25.50 ; Other chronic pain G89.29 ; Colon cancer screening declined Z53.20 and BMI 24.0-24.9, adult Z68.24 Assessments Encounter Date Diagnosis (ICD Code) Assessment Notes Treatment Notes Treatment Clinical Notes Section Notes 01/03/2025 Recurrent deep vein thrombosis (DVT) (ICD-10 - I82.409) 01/03/2025 jail current use of anticoagulant (ICD-10 - Z79.01) 01/03/2025 Polyarthralgia (ICD-10 - M25.50) 01/03/2025 Other chronic pain (ICD-10 - G89.29) Patient will call when she wants to proceed with pain management evaluation 01/03/2025 Colon cancer screening declined (ICD-10 - Z53.20) 01/03/2025 BMI 24.0-24.9, adult (ICD-10 - Z68.24) Plan Of Treatment Treatment Notes Assessment Notes Other chronic pain Patient will call en she wants to proceed with pain management evaluation Next Appt Details Follow Up: 6 Weeks, Reason: Provider Name:Guillaume Perrin ry, 06/29/2025 11:30:00 AM, [address], [address], [place], [phone], Progress Notes * MARIANNE PAGE RDOB: [birth year] (75 yo F)Acc No.[id number]:01/03/2025 Progress Notes Patient: MARIANNE MATOS Provider: Darnell Dietz M.D. :1950 A ge:74 Y S ex:Female Date:01/03/2025 Address:[address] [place] [address], [place], [id number] Subjective: * Chief Complaints: * 1 . 6 weeks. * HPI: H ematology: 74 year old female presents with c/o PT/INR d ue for PT/INR. * ROS: D ERMATOLOGY: no R chris. n o H niranjan. G ASTROENTEROLOGY: no N ausea. n o V omiting. M USCULOSKELETAL: Joint pain y es, n umerous. U ROLOGY: no D ifficulty urinating. n o B lood in urine. 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 * Hospitalization/Major Diagno stic Procedure: R T Knee Pain- [facility] ER 01/21/2018, Surgery- [facility] 04/24/2019, RT Lower PE- [facility] 04/25-03/2019. * Family History: F ather: , colon cancer. M other: alive, ovarian cancer. S iblings: arthritis, HTN, skin cancer. C hildren: migraines. 1 brother(s) . 1 son(s) , 1 daughter(s) . . * Social History: C URRENT TOBACCO USE: No . C affeine: yes. Marital Status: . Past smoking status: never smoked. Alcohol: No. * Medications: T aking Glucosamine [...] once a day (at bedtime) , Taking Propranolol HCl 80 MG Tablet Take 1/2 (one-half) tablet by mouth once daily , Taking Diclofenac Sodium 75 MG Tablet Delayed Release 1 tablet orally Once a day , Taking DULoxetine HCl 30 MG Capsule Delayed Release Particles Take 1 capsule by mouth once daily , Taking valACYclovir HCl 1 GM Tablet Take 2 tablets by mouth twice daily , Taking Warfarin Sodium 5 MG Tablet Take 1 tablet by mouth once daily , Taking Pravastatin Sodium 40 MG Tablet Take 1 tablet by mouth once daily , Medication List reviewed and reconciled with the patient * Allergies: P enicillin: Hives - Allergy, oxyCODONE: itching of skin - Allergy, Amoxicillin: hives - Allergy, Sulfamethoxazole: hives - Allergy. Objective: * Vitals: W t: 148.4, Temp: 98.0, BP: 112/60, HR: 56, Nurse: NICOLE, Ht: 65, BMI:24.69. * Examination: G eneral Examination: General Appearance: N AD. H eart: R SR. L ungs:?clear to auscultation. Assessment: * Assessment: 1. R ecurrent deep vein thrombosis (DVT) - I82.409 (Primary) 2 . L ana laura term current use of anticoagulant - Z79.01 3 . P olyarthralgia - M25.50 ?4. O ther chronic pain - G89.29 5 . C olon cancer screening declined - Z53.20 6 . B SD 24.0-24.9, adult - Z68.24 Plan: * Treatment: Value Reference Range I NR 2.9 * c urrent dose 5mg M,F, 2.5mg AOD * n ew dose no change * n ext check 6 weeks * i deal INR 2-3 * Imelda Granda 01/03/2025 11:45: 15 AM EDT > Provider reviewed results while patient in office.Guillaume Dietz 01/03/2025 11:57:35 AM EDT > Spoke to patient. 2.?Other chronic pain? Notes: Patient will call when she wants to proceed with pain management evaluation?? * Procedure Codes: G 2211 Complex e/[place], [address] PROTHROMBIN TIME, Modifiers: QW , 36014 CAPILLARY BLOOD DRAW, G8420 BMI<30 AND >=22 CALC & DOCU, G8783 BP SCR PRFRM RCMDD DEFIND SCR INTVL, G8752 MOST RECENT SYSTOLIC BP < 140MM HG, G8754 MOST RECENT DIASTOLIC BP < 90MM HG, 1036F TOBACCO NON-USER * Follow Up: 6 Weeks * Images: Billing Information: * Visit Code: 52133 Office Visit, Est Pt., Level 3. * Procedure Codes: G2211 Complex e/[place]. [address] PROTHROMBIN TIME. Modifiers: QW 84418 CAPILLARY BLOOD DRAW. G8420 BMI<30 AND >=22 CALC & DOCU. G8783 BP SCR PRFRM RCMDD DEFIND SCR INTVL. G8752 MOST RECENT SYSTOLIC BP < 140MM HG. G8754 MOST RECENT DIASTOLIC BP < 90MM HG. 1036F TOBACCO NON-USER. * Electronic signature of Mary Dietz MD on 05/20/2025 at 01:20 PM EDT Sign off status: Pending * Provider: Darnell Dietz M.D. Date: 0 01/03/2025 Generated for Miranda lopez/Britt/eTransmitting on: 1 01:20 PM EDT History and Physical Notes * HPI (History of Present Illness) Category Sub-Category Detail Notes Category Not es Hematology PT/INR due for PT/INR Examination Category Sub-Category Detail Notes Category Not es General Examination Heart: RSR Lungs: clear to auscultatio n General Appearance: NAD
--- OUTSIDE RECORDS SUMMARY | 2025-02-14 07:30 | XMS_ITS ---
[facility] Address [address] [place] [id number] Care Team Providers Care Community Recreation Programmer Name Role Phone Guillaume Dietz Primary Care Provider Allergies Allergen (clinical drug ingredient) Drug/Non Drug Allergy documented on EMR Reaction Allergy Type Onset Date Status amoxicillin Amoxicillin hives Drug Allergy Act carole Sulfamethoxazole hives Drug Allergy Active oxycodone oxyCODONE itching of skin Drug Allergy Active Penicillin Hives Drug Allergy Active Results Component Value Reference Range Notes PT/INR (in house) Reviewed date:02/14/2025 09:58:11 PM Interpretation: Performing Lab: Notes/Report: PT 34.1 INR 2.8 current dose 5mg M,F, 2.5mg AOD new dose no change next check 6 weeks ideal INR 2-3 REASON FOR VISIT 6 weeks Medications Medication SIG (Take, Route, Frequency, Duration) Notes Start Date End Date Status Warfarin Sodium 5 MG 1 tablet Orally Onc e a day Active DULoxetine HCl 30 MG 1 capsule Orally On ce a day; Duration: 90 days Active Diclofenac Sodium 75 MG 1 tablet orally Once a day; Duration: 90 days Active Pravastatin Sodium 40 MG Take 1 tablet b y mouth once daily; Duration: 90 Active Propranolol HCl 80 MG 1/2 tablet Orally once a day; Duration: 90 days Active Calcium-Vitamin D-Minerals 600-400 MG-UNIT 1 tab(s) orally twice a day Active Vitamin B-12 1000 MCG 1 tab(s) orally on ce a day Active Hair Skin Nails - 1 cap(s) orally once a day Active Melatonin 10 MG 1 cap(s) orally once a day (at bedtime) Active valACYclovir HCl 1 GM Take 2 tablets by mouth twice daily; Duration: 1 Active Glucosamine Chond Cmp Advanced - as directed Orally Active Doxycycline Hyclate 100 MG 1 tab(s) oral ly once daily Active Vitamin D3 50 MCG (1999) 1 tab(s) ora lly twice a day 07/03/2010 Active Vital Signs Blood pressure systolic 110 mm Hg 02/15/20 25 Blood pressure diastolic 70 mm Hg 025 Heart Rate 60 /min 02/14/2025 Height 65 in 02/14/2025 Weight 143 lbs 02/14/2025 BMI 23.79 kg/m2 02/14/2025 Encounters Encounter Location Date Provider Diagnosis [facility] [address] [facility] [address] [facility] [address] [place], [place] [id number] 02/14/2025 Guillaume Dietz Recurrent deep vein thrombosis (DVT) I82.409 and [facility] current use of anticoagulant Z79.01 Assessments Encounter Date Diagnosis (ICD Code) Assessment Notes Treatment Notes Treatment Clinical Notes Section Notes 02/14/2025 Recurrent deep vein thrombosis (DVT) (ICD-10 - I82.409) 02/14/2025 intermission coordinator current use of anticoagulant (ICD-10 - Z79.01) Plan Of Treatment Medication Medication Name Sig Start Date Stop Date Notes Warfarin Sodium 5 MG 1 tablet Orally Once a day Next Appt Details Follow Up: 6 Weeks fasting, Reason: Provider Name:Guillaume Perrin ry, 06/29/2025 11:30:00 AM, [address] [facility] [address] [facility], [address], [place], [place], [id number], Progress Notes * MARIANNE PAGE RDOB: [birth year] (75 yo F)Acc No.[id number]:02/14/2025 Progress Notes Patient: Bela ANNEAMANDANA Rupali Provider: Darnell Dietz M.D. :1950 A ge:74 Y S ex:Female Date:02/14/2025 Address:[address] [place] [address], [id number] Subjective: * Chief Complaints: * 1 . [...] Medical History: M igraines, Hyperlipidemia, Osteopenia/ Osteoporosis, Gm - Dr. Singh, Colon polyps, Diverticulosis, Colonoscopy- [...] Tonsillectomy , Cholecystectomy , Colonoscopy: 2012 & 2018 , RT Broken Femur Repair- 05/28/2015, RT knee - Screw Repair 09/2018, RT Femur Repair, Removal of Hardware 04/24/2019. * Hospitalization/Major Diagno stic Procedure: R T Knee Pain- [facility] 01/21/2018, Surgery- 04/24/2019, RT Lower PE- [facility] 04/25-03/2019. * Family History: F ather: , [...] tablets by mouth twice daily , Taking Pravastatin Sodium 40 MG Tablet Take 1 tablet by mouth once daily , Taking Propranolol HCl 80 MG Tablet 1/2 tablet Orally once a day , Taking Warfarin Sodium 5 MG Tablet 1 tablet Orally Once a day , Taking DULoxetine HCl 30 MG Capsule Delayed Release Particles 1 capsule Orally Once a day , Taking Diclofenac Sodium 75 MG Tablet Delayed Release 1 tablet orally Once a day , Medication List reviewed and reconciled with the patient * Allergies: P enicillin: Hives - Allergy, oxyCODONE: itching of skin - Allergy, Amoxicillin: hives - Allergy, Sulfamethoxazole: hives - Allergy. Objective: * Vitals: W t: 143, Temp: 97.7, BP: 110/70, HR: 60, Nurse: ezio, Ht: 65, BMI:23.79. * Examination: G eneral Examination: General Appearance: N AD. H eart: R SR. L ungs:?clear to auscultation. Assessment: * Assessment: 1. R ecurrent deep vein thrombosis (DVT) - I82.409 (Primary) 2 . L ana laura term current use of anticoagulant - Z79.01 Plan: * Treatment: Value Reference Range P T 34.1 * I NR 2.8 * c urrent dose 5mg M,F, 2.5mg AOD * n ew dose no change * n ext check 6 weeks * i deal INR 2-3 * Imelda Granda 02/14/2025 11:42: 25 AM EDT > Provider reviewed results while patient in office.Guillaume Dietz 02/14/2025 12:14:38 PM EDT > Discussed at office visit. * Procedure Codes: G 2211 Complex e/[place], [address] PROTHROMBIN TIME, Modifiers: QW , 52132 CAPILLARY BLOOD DRAW * Follow Up: 6 Weeks fasting * Images: Billing Information: * Visit Code: 08484 Office Visit, Est Pt., Level 3. * Procedure Codes: G2211 Complex e/[place]. [address] PROTHROMBIN TIME. Modifiers: QW 16890 CAPILLARY BLOOD DRAW. * Electronic signature of Mary Dietz MD on 05/20/2025 at 01:21 PM EDT Sign off status: Pending * Provider: Darnell Dietz M.D. Date: 0 02/14/2025 Generated for Miranda lopez/Britt/eTransmitting on: 1 01:21 PM EDT History and Physical Notes * HPI (History of Present Illness) Category Sub-Category Detail Notes Category Not es Hematology PT/INR due for PT/INR Examination Category Sub-Category Detail Notes Category Not es General Examination Heart: RSR Lungs: clear to auscultatio n General Appearance: NAD
--- OUTSIDE RECORDS SUMMARY | 2025-04-04 07:30 | XMS_ITS ---
[facility] Address [address] [place] [id number] Care Team Providers Care Papeterie Table Assembler Name Role Phone J LuisAndrewGuillaume Primary Care Provider Allergies Allergen (clinical drug ingredient) Drug/Non Drug Allergy documented on EMR Reaction Allergy Type Onset Date Status amoxicillin Amoxicillin hives Drug Allergy Act carole Sulfamethoxazole hives Drug Allergy Active oxycodone oxyCODONE itching of skin Drug Allergy Active Penicillin Hives Drug Allergy Active Results Component Value Reference Range Notes PT/INR (in house) Reviewed date:04/05/2025 10:54:03 AM Interpretation: Performing Lab: Notes/Report: PT 40.0 INR 3.3 current dose 5mg M,F 2.5mg AOD new dose 5 mg F, 2.5 mg AOD next check 6 weeks ideal INR 2-3 CBC Venipuncture (in house) Reviewed date:04/05/2025 12:37:37 PM Interpretation: Performing Lab: Notes/Report: wbc 5.1 3.5 - 10 lymph 26.3% 15 - 50 mid 5.7% 2 - 15 gran 68.0% 35 - 80 rbc 4.24 3.5 - 5.5 hgb 13.1 11.5 - 16.5 hct 39.6 35 - 55 mcv 93.2 75 - 100 mch 30.9 25 - 35 mchc 33.2 31 - 38 platlet 260 100 - 400 P-Comprehensive Metabolic Pa iggy (CMP) Reviewed date:04/05/2025 12:37:37 PM Interpretation:cl 109, gluc 103, bun 34, Cr 1.22, gfr 46 Performing Lab: Notes/Report: Test performed by [facility] [address] [place] [address] , [address], [place] [address] Chito Yap MD, Rodent Control Worker CLIA: [id number] Sodium 144 135-145 mmol/L Potassium 4.7 3.5-5.3 mmol/L Chloride 109 97-108 mmol/L CO2 26 20-32 mmol/L Glucose 103 65-99 mg/dL BUN 34 8-23 mg/dL Creatinine 1.22 0.50-1.00 mg/dL Calcium 10.4 8.6-10.4 mg/dL eGFR by Creatinine 46 >59 mL/min/1.73m2 Protein 7.1 6.0-8.3 g/dL Albumin 4.2 3.5-5.3 g/dL Alkaline Phosphatase 55 35-121 IU/L ALT (SGPT) 17 <5-47 IU/L AST (SGOT) 25 <5-40 IU/L Bilirubin, Total 0.6 <0.2-1.2 mg/dL A/G Ratio 1.4 1.1-2.5 P-T4 Free (thyroxine) Reviewed date:04/05/2025 12:37:37 PM Interpretation:Normal Performing Lab: Notes/Report: Test performed by [facility] [address] [place] [address] , [place] [address] Chito Yap MD, Rodent Control Worker CLIA: [id number] Thyroxine Free (free T4) 1.33 0.86-1.76 ng/dL P-Lipid Panel Reviewed date:04/05/2025 12:37:37 PM Interpretation:non-hdl 130 Performing Lab: Notes/Report: Test performed by [facility] [address] [place] [address] , [address], [place] [address] Chito Yap MD, Rodent Control Worker CLIA: [id number] Cholesterol 187 <200 mg/dL Triglycerides 123 <150 mg/dL HDL Cholesterol 57 >39 mg/dL Cholesterol / HDL Ratio 3.28 0.00-4.44 Ratio Non-HDL Cholesterol 130 <130 mg/dL LDL Cholesterol (Calculation) 105 <130 mg/dL LDL Cholesterol Levels* Less than 100 mg/dL Optimal 100 to 129 mg/dL Near Optimal/ Above Optimal 130 to 159 mg/dL Borderline High 160 to 189 mg/dL High 190 mg/dL and above Very High * Categories as recommended by the 2004 ATPIII guidelines LDL/HDL Ratio 1.8 <3.3 Ratio ____ LDL Cholesterol Patient History ____ Test Date: 03/24/2024 LDL Results: 91 Units: mg/dL % Change: - ---- Test Date: 04/04/2025 LDL Results: 105 Units: mg/dL % Change: +15% ____ P-TSH Reviewed date:04/05/2025 12:37:37 PM Interpretation:Normal Performing Lab: Notes/Report: Test performed by [facility], [address] , [place] [address] Chito Yap MD, Rodent Control Worker CLIA: [id number] TSH 3.64 0.43-5.25 mU/L P-Vitamin D 25-Hydroxy Reviewed date:04/05/2025 12:37:37 PM Interpretation:Normal Performing Lab: Notes/Report: Test performed by [facility], [employer] [address] [facility] , [address], [place] [address] Chito Yap MD, Rodent Control Worker CLIA: [id number] Vitamin D 25-Hydroxy 87.8 30.0-100.0 ng/mL Interpretation of Vitamin D 25 OH: < 20 ng/mL - Deficiency 20 - 29 ng/mL - Insufficiency 30 - 100 ng/mL - Sufficiency > 100 ng/mL - Super-therapeutic- toxicity may occur above this level. Clinical correlation required. REASON FOR VISIT 6 week f/u with fasting labs Medications Medication SIG (Take, Route, Frequency, Duration) Notes Start Date End Date Status Propranolol HCl 80 MG 1/2 tablet Orally once a day; Duration: 90 days Active DULoxetine HCl 30 MG 1 capsule Orally On ce a day; Duration: 90 days Active Diclofenac Sodium 75 MG 1 tablet orally Once a day; Duration: 90 days Active Warfarin Sodium 5 MG 1 tablet Orally Onc e a day Active Pravastatin Sodium 40 MG Take 1 tablet b y mouth once daily Active Calcium-Vitamin D-Minerals 600-400 MG-UNIT [...] 07/03/2010 Active Vital Signs Blood pressure systolic 122 mm Hg 04/04/20 25 Blood pressure diastolic 70 mm Hg 025 Heart Rate 75 /min 04/04/2025 Height 65 in 04/04/2025 Weight 148.2 lbs 04/04/2025 BMI 24.66 kg/m2 04/04/2025 Encounters Encounter Location Date Provider Diagnosis [facility] [address] [place], [place] [id number] 04/04/2025 Guillaume Dietz Recurrent deep vein thrombosis (DVT) I82.409 ; residential current use of anticoagulant Z79.01 ; Mixed hyperlipidemia E78.2 ; Hypothyroidism, unspecified E03.9 ; Vitamin D deficiency E55.9 ; Pain in left knee M25.562 ; Other chronic pain G89.29 and BMI 24.0-24.9, adult Z68.24 Assessments Encounter Date Diagnosis (ICD Code) Assessment Notes Treatment Notes Treatment Clinical Notes Section Notes 04/04/2025 Recurrent deep vein thrombosis (DVT) (ICD-10 - I82.409) 04/04/2025 residential current use of anticoagulant (ICD-10 - Z79.01) 04/04/2025 Mixed hyperlipidemia (ICD-10 - E78.2) 04/04/2025 Hypothyroidism, unspecified (ICD-10 - E03.9) 04/04/2025 Vitamin D deficiency (ICD-10 - E55.9) 04/04/2025 Pain in left knee (ICD-10 - M25.562) 04/04/2025 Other chronic pain (ICD-10 - G89.29) 04/04/2025 BMI 24.0-24.9, adult (ICD-10 - Z68.24) Plan Of Treatment Medication Medication Name Sig Start Date Stop Date Notes Warfarin Sodium 5 MG 1 tablet Orally Once a day Pravastatin Sodium 40 MG Take 1 tablet by mouth once daily Next Appt Details Follow Up: 6 Weeks, Reason: Provider Name:Guillaume Perrin , 06/29/2025 11:30:00 AM, [address] [facility], [facility] [address] [facility], [address] , [place], [place], [id number], Progress Notes * MARIANNE PAGE RDOB: [birth year] (75 yo F)Acc No.[id number]:04/04/2025 Progress Notes Patient: Bela ANNEAMANDACOLLEEN Zapien Provider: Darnell Dietz M.D. :1950 A ge:74 Y S ex:Female Date:04/04/2025 Address:[address] [place] [address] [place] [id number] Subjective: * Chief Complaints: * 1 . 6 week f/u with fasting labs. * HPI: H ematology: 74 year old female presents with c/o PT/INR r equesting blood work. 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 * Hospitalization/Major Diagno stic Procedure: R T Knee Pain- [facility] 01/21/2018, Surgery- [facility] 04/24/2019, RT Lower PE- [facility] 04/25-03/2019. * Family History: F [...] tablets by mouth twice daily , Taking Propranolol HCl 80 MG Tablet 1/2 tablet Orally once a day , Taking DULoxetine HCl 30 MG Capsule Delayed Release Particles 1 capsule Orally Once a day , Taking Diclofenac Sodium 75 MG Tablet Delayed Release 1 tablet orally Once a day , Taking Warfarin Sodium 5 MG Tablet 1 tablet Orally Once a day , Taking Pravastatin Sodium 40 MG Tablet Take 1 tablet by mouth once daily , Medication List reviewed and reconciled with the patient * Allergies: P enicillin: Hives - Allergy, oxyCODONE: itching of skin - Allergy, Amoxicillin: hives - Allergy, Sulfamethoxazole: hives - Allergy. Objective: * Vitals: W t: 148.2, Temp: 98.2, BP: 122/70, HR: 75, Nurse: ADELIA, Ht: 65, BMI:24.66. * Examination: G eneral Examination: General Appearance: N AD. H eart: R SR. L ungs:?clear to auscultation. Assessment: * Assessment: 1. R ecurrent deep vein thrombosis (DVT) - I82.409 (Primary) 2 . L ana larua term current use of anticoagulant - Z79.01 3 . M ixed hyperlipidemia - E78.2 ? 4 . H ypothyroidism, unspecified - E03.9 5 . V itamin D deficiency - E55.9 6 . P ain in left knee - M25.562 7 . O ther chronic pain - G89.29 8 . B [place] 24.0-24.9, adult - Z68.24 Plan: * Treatment: Value Reference Range P T 40.0 * I NR 3.3 * c urrent dose 5mg M,F 2.5mg AOD * n ew dose 5 mg F, 2.5 mg AOD * n ext check 6 weeks * i deal INR 2-3 * Imelda Granda 04/04/2025 11:36: 07 AM EDT > Provider reviewed results while patient in office.Guillaume Dietz 04/04/2025 12:12:45 PM EDT > 2.?residential current use of anticoagulant?LAB: CBC Venipuncture (in house) (Collection Date & Time - 04/04/2025)* Value Reference Range w bc 5.1 3.5 - 10 * l ymph 26.3% 15 - 50 * m id 5.7% 2 - 15 * g ran 68.0% 35 - 80 * r bc 4.24 3.5 - 5.5 * h gb 13.1 11.5 - 16.5 * h ct 39.6 35 - 55 * m cv 93.2 75 - 100 * m ch 30.9 25 - 35 * m chc 33.2 31 - 38 * p latlet 260 100 - 400 * Imelda Granda 04/04/2025 02:31: 31 PM EDT > Susan Chan 04/05/2025 12:37:29 PM EDT > See phone encounter 3.?Mixed hyperlipidemia? Continue Pravastatin Sodium Tablet, 40 MG, Take 1 tablet by mouth once daily.?LAB: P-Comprehensive Metabolic Panel (CMP) (Collection Date & Time - 04/04/2025 11:24 AM)?cl 109, gluc 103, bun 34, Cr 1.22, gfr 46* Value Reference Range A /G Ratio 1.4 1.1-2.5 - * A lbumin 4.2 3.5-5.3 - g/dL * A lkaline Phosphatase 55 35-121 - IU/L * A LT (SGPT) 17 <5-47 - IU/L * A ST (SGOT) 25 <5-40 - IU/L * B ilirubin, Total 0.6 <0.2-1.2 - mg/dL * B UN 34 H 8-23 - mg/dL * C alcium 10.4 8.6-10.4 - mg/dL * C hloride 109 H 97-108 - mmol/L * C O2 26 20-32 - mmol/L * C reatinine 1.22 H 0.50-1.00 - mg/dL * G lucose 103 H 65-99 - mg/dL * P otassium 4.7 3.5-5.3 - mmol/L * S odium 144 135-145 - mmol/L * P rotein 7.1 6.0-8.3 - g/dL * e GFR by Creatinine 46 L >59 - mL/min/1.73m2 * Susan Chan 04/05/2025 12: 37:29 PM EDT > See phone encounter ?LAB: P-Lipid Panel (Collection Date & Time - 04/04/2025 11:24 AM)?non-hdl 130* Value Reference Range C holesterol / HDL Ratio 3.28 0.00-4.44 - Ratio * C holesterol 187 <200 - mg/dL * H DL Cholesterol 57 >39 - mg/dL * L DL Cholesterol (Calculation) 105 <130 - mg/d L * L DL/HDL Ratio 1.8 <3.3 - Ratio * N on-HDL Cholesterol 130 H <130 - mg/dL * T riglycerides 123 <150 - mg/dL * Dustin Susan 04/05/2025 12: 37:29 PM EDT > See phone encounter 4.?Hypothyroidism, unspecified?LAB: P-T4 Free (thyroxine) (Collection Date & Time - 04/04/2025 11:24 AM)? Normal* Value Reference Range T hyroxine Free (free T4) 1.33 0.86-1.76 - ng/d L * Susan Chan 04/05/2025 12: 37:29 PM EDT > See phone encounter ?LAB: P-TSH (Collection Date & Time - 04/04/2025 11:24 AM)?Normal* Value Reference Range T SH 3.64 0.43-5.25 - mU/L * Dustin Susan 04/05/2025 12: 37:29 PM EDT > See phone encounter 5.?Vitamin D deficiency?LAB: P-Vitamin D 25-Hydroxy (Collection Date & Time - 04/04/2025 11:24 AM)? Normal* Value Reference Range V itamin D 25-Hydroxy 87.8 30.0-100.0 - ng/mL * Dustin Susan 04/05/2025 12: 37:29 PM EDT > See phone encounter * Procedure Codes: G 2211 Complex e/[place], [address] PROTHROMBIN TIME, Modifiers: QW , 87995 CBC WITH AUTO DIFF, G8420 BMI<30 AND >=22 CALC & DOCU, G8783 BP SCR PRFRM RCMDD DEFIND SCR INTVL, G8752 MOST RECENT SYSTOLIC BP < 140MM HG, G8754 MOST RECENT DIASTOLIC BP < 90MM HG, 3074F SYST BP LT 130 MM HG, 3078F DIAST BP < 80 MM HG * Follow Up: 6 Weeks * Images: Billing Information: * Visit Code: 60131 Office Visit, Est Pt., Level 4. * Procedure Codes: G2211 Complex e/[place]. [address] PROTHROMBIN TIME. Modifiers: QW 20636 CBC WITH AUTO DIFF. G8420 BMI<30 AND >=22 CALC & DOCU. G8783 BP SCR PRFRM RCMDD DEFIND SCR INTVL. G8752 MOST RECENT SYSTOLIC BP < 140MM HG. G8754 MOST RECENT DIASTOLIC BP < 90MM HG. 3074F SYST BP LT 130 MM HG. 3078F DIAST BP < 80 MM HG. * Electronic signature of Mary Dietz MD on 05/20/2025 at 01:20 PM EDT Sign off status: Pending * Provider: Darnell Dietz M.D. Date: 0 04/04/2025 Generated for Miranda lopez/Britt/Dmitriysmitting on: 1 01:20 PM EDT History and Physical Notes * HPI (History of Present Illness) Category Sub-Category Detail Notes Category Not es Hematology PT/INR requesting blood work Examination Category Sub-Category Detail Notes Category Not es General Examination Heart: RSR Lungs: clear to auscultatio n General Appearance: NAD
--- OUTSIDE RECORDS SUMMARY | 2025-05-18 07:30 | XMS_ITS ---
[facility] Address [address] [place] [id number] Care Team Providers Care Building Inspector Name Role Phone Guillaume Dietz Primary Care Provider [phone] Allergies Allergen (clinical drug ingredient) Drug/Non Drug Allergy documented on EMR Reaction Allergy Type Onset Date Status amoxicillin Amoxicillin hives Drug Allergy Act carole Sulfamethoxazole hives Drug Allergy Active oxycodone oxyCODONE itching of skin Drug Allergy Active Penicillin Hives Drug Allergy Active Results Component Value Reference Range Notes PT/INR (in house) Reviewed date:05/18/2025 12:20:26 PM Interpretation: Performing Lab: Notes/Report: INR 1.6 current dose 5mg F 2.5mg AOD new dose 5mg M&F, 2.5mg AOD next check 6 weeks P-Basic Metabolic Panel (BMP ) Reviewed date:05/19/2025 04:14:39 PM Interpretation:Normal Performing Lab: Notes/Report: Test performed by [facility] [address] [place] [address] , [address], [place] [address] Chito Yap MD, Probation And Parole Officer CLIA: [id number] Sodium 135 135-145 mmol/L Potassium 4.8 3.5-5.3 mmol/L Chloride 99 97-108 mmol/L CO2 24 20-32 mmol/L Glucose 94 65-99 mg/dL BUN 22 8-23 mg/dL Creatinine 0.97 0.50-1.00 mg/dL Calcium 10.3 8.6-10.4 mg/dL eGFR by Creatinine 60 >59 mL/min/1.73m2 P-Phosphorus Reviewed date:05/19/2025 04:14:32 PM Interpretation:Normal Performing Lab: Notes/Report: Test performed by [facility] [address] [place] [address] [address] , [place] [address] Chito Yap MD, Probation And Parole Officer CLIA: [id number] Phosphorus 3.1 2.5-4.5 mg/dL P-Parathyroid Hormone (PTH) Intact Reviewed date:05/19/2025 04:14:25 PM Interpretation:Normal Performing Lab: Notes/Report: Test performed by [facility] [address] [place] [address] [address] , [place] [address] Chito Yap MD, Probation And Parole Officer CLIA: [id number] Parathyroid Hormone (PTH) Intact 23.8 17.9-58.6 pg/mL The parathyroid assay has been updated. Please note there is a slight difference in the reference range values. REASON FOR VISIT 6 weeks Medications Medication SIG (Take, Route, Frequency, Duration) Notes Start Date End Date Status Hair Skin Nails - 1 cap(s) orally once a day Active Melatonin 10 MG 1 cap(s) orally once a day (at bedtime) Active Vitamin B-12 1000 MCG 1 tab(s) orally on ce a day Active Pravastatin Sodium 40 MG Take 1 tablet b y mouth once daily Active Propranolol HCl 80 MG 1/2 tablet Orally once a day; Duration: 90 days Active Warfarin Sodium 5 MG 1 tablet Orally Onc e a day Active Vitamin D3 50 MCG (2000 UT) 1 tab(s) orally twice a day 07/03/2010 Active Calcium-Vitamin D-Minerals 600-400 MG-UNIT 1 tab(s) orally twice a day Active Glucosamine Chond Cmp Advanced - as directed Orally Active Doxycycline Hyclate 100 MG 1 tab(s) orally once daily Active valACYclovir HCl 1 GM 2 tablets orally t wice a day; Duration: 1 days Active Farxiga 10 MG 1 tablet Orally Once a day; Duration: 90 days 04/10/2025 Not-Takmaryjane g DULoxetine HCl 30 MG 1 capsule Orally On ce a day; Duration: 90 days Active Diclofenac Sodium 75 MG 1 tablet orally Once a day; Duration: 90 days Active Immunizations Vaccine Route Administration Date Status Comme nts Fluzone High Dose (65yr and older) IM Intramuscular 05/18/2025 Administered Problems Problem Type SNOMED Code ICD Code Onset Dates Problem Status W/U Status Risk Notes Problem Chronic kidney disease stage 3A (disorder) (645523056) CKD stage 3a, GFR 45-59 ml/min (N18.31) Active confirmed Vital Signs Blood pressure systolic 118 mm Hg 05/18/20 25 Blood pressure diastolic 70 mm Hg 025 Heart Rate 72 /min 05/18/2025 Height 65 in 05/18/2025 Weight 147.4 lbs 05/18/2025 BMI 24.53 kg/m2 05/18/2025 Encounters Encounter Location Date Provider Diagnosis [facility] [address] [place] [id number] 05/18/2025 Guillaume Dietz Recurrent deep vein thrombosis (DVT) I82.409 ; 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 ; CKD stage 3a, GFR 45-59 ml/min N18.31 and Encounter for immunization Z23 Assessments Encounter Date Diagnosis (ICD Code) Assessment Notes Treatment Notes Treatment Clinical Notes Section Notes 05/18/2025 Recurrent deep vein thrombosis (DVT) (ICD-10 - I82.409) 05/18/2025 nursing home current use of anticoagulant (ICD-10 - Z79.01) 05/18/2025 CKD stage 3a, GFR 45-59 ml/min (ICD-10 - N18.31) Patient could not afford Farxiga, recheck labs today 05/18/2025 Encounter for immunization (ICD-10 - Z23) Plan Of Treatment Medication Medication Name Sig Start Date Stop Date Notes Warfarin Sodium 5 MG 1 tablet Orally Once a day Treatment Notes Assessment Notes CKD stage 3a, GFR 45-59 ml/min Patient c ould not afford Farxiga, recheck labs today Next Appt Details Follow Up: 6 Weeks, Reason: Provider Name:Guillaume escudero, 06/29/2025 11:30:00 AM, [address], [address], [place], [place], [phone], Progress Notes * MARIANNE PAGE RDOB: [birth year] (75 yo F)Acc No.[id number]:05/18/2025 Progress Notes Patient: MARIANNE MATOS R Provider: Darnell Dietz M.D. :1950 A ge:75 Y S ex:Female Date:05/18/2025 Address:[address] [place] [address] [place], [phone] Subjective: * Chief Complaints: * 1 . 6 weeks. * HPI: H ematology: 75 year old female presents with c/o PT/INR d ue for PT/INR. * Medical History: M igraines, Hyperlipidemia, Osteopenia/ Osteoporosis, Internist - Dr. Singh, Colon polyps, Diverticulosis, Colonoscopy- [...] Procedure: R T Knee Pain- [facility] ER 01/21/2018, Surgery- 04/24/2019, RT Lower PE- [facility] 04/25-03/2019. * Family History: F ather: [...] orally twice a day , Taking Calcium-Vitamin D- Minerals 600-400 MG-UNIT Tablet Chewable 1 tab(s) orally twice a day , Taking Vitamin B- 12 1000 MCG Tablet 1 tab(s) orally once [...] tablet by mouth once daily , Taking valACYclovir HCl 1 GM Tablet 2 tablets orally twice a day , Taking DULoxetine HCl 30 MG Capsule Delayed Release Particles 1 capsule Orally Once a day , Taking Diclofenac Sodium 75 MG Tablet Delayed Release 1 tablet orally Once a day , Not-Taking Farxiga 10 MG Tablet 1 tablet Orally Once a day , Medication List reviewed and reconciled with the patient * Allergies: P enicillin: Hives - Allergy, oxyCODONE: itching of skin - Allergy, Amoxicillin: hives - Allergy, Sulfamethoxazole: hives - Allergy. Objective: * Vitals: W t: 147.4, Temp: 97.9, BP: 118/70, HR: 72, Nurse: ADELIA, Ht: 65, BMI:24.53. * Examination: G eneral Examination: General Appearance: N AD. H eart: R SR. L ungs:?clear to auscultation. E xtremities: n o leg edema. Assessment: * Assessment: 1. R ecurrent deep vein thrombosis (DVT) - I82.409 (Primary) 2 . L ana laura term current use of anticoagulant - Z79.01 3 . C KD stage 3a, GFR 45-59 ml/min - N18.31 4 . E ncounter for immunization - Z23 Plan: * Treatment: Value Reference Range I NR 1.6 * c urrent dose 5mg F 2.5mg AOD * n ew dose 5mg M&F, 2.5mg AOD * n ext check 6 weeks * Adriana Monsivais 05/18/2025 11 :54:13 AM EDT > Provider reviewed results while patient in office.Guillaume Dietz 05/18/2025 12:03:09 PM EDT > 2.?CKD stage 3a, GFR 45-59 ml/min?LAB: P-Basic Metabolic Panel (BMP) (Collection Date & Time - 05/18/2025 12:45 PM)?Normal* Value Reference Range B UN 22 8-23 - mg/dL * C alcium 10.3 8.6-10.4 - mg/dL * C hloride 99 97-108 - mmol/L * C O2 24 20-32 - mmol/L * C reatinine 0.97 0.50-1.00 - mg/dL * G lucose 94 65-99 - mg/dL * P otassium 4.8 3.5-5.3 - mmol/L * S odium 135 135-145 - mmol/L * e GFR by Creatinine 60 >59 - mL/min/1.73m2 * Destiny Hassan 05/19/2025 04: 14:36 PM EDT >pt informed ?LAB: P-Phosphorus (Collection Date & Time - 05/18/2025 12:45 PM)?Normal* Value Reference Range P hosphorus 3.1 2.5-4.5 - mg/dL * Destiny Hassan 05/19/2025 04: 14:29 PM EDT >pt informed ?LAB: P-Parathyroid Hormone (PTH) Intact (Collection Date & Time - 05/18/2025 12:45 PM)?Normal* Value Reference Range P arathyroid Hormone (PTH) Intact 23.8 17.9-58. 6 - pg/mL * Destiny Hassan 05/19/2025 04: 14:21 PM EDT >pt informed Notes: Patient could not afford Farxiga, recheck labs today?? * Immunizations: Fluzone High Dose (65yr and older) : 0.5 mL (Route: Intramuscular) given by Adriana Monsivais on Left Deltoid (Encounter for immunization) * Procedure Codes: G 2211 Complex e/[place], [address] PROTHROMBIN TIME, Modifiers: QW , 8[address] CAPILLARY BLOOD DRAW * Follow Up: 6 Weeks * Images: Billing Information: * Visit Code: 77048 Office Visit, Est Pt., Level 4. * Procedure Codes: G2211 Complex e/[place]. [address] PROTHROMBIN TIME. Modifiers: QW 09687 CAPILLARY BLOOD DRAW. * Electronic signature of Mary Dietz MD on 05/20/2025 at 01:20 PM EDT Sign off status: Pending * Provider: Darnell Dietz M.D. Date: Generated for Miranda lopez/Britt/eTransmitting on: 01:20 PM EDT History and Physical Notes * HPI (History of Present Illness) Category Sub-Category Detail Notes Category Not es Hematology PT/INR due for PT/INR Examination Category Sub-Category Detail Notes Category Not es General Examination Heart: RSR Lungs: clear to auscultatio n Extremities: no leg edema General Appearance: NAD
--- NOTE | 2025-05-20 13:16 | MM_ITS ---
PROCEDURE INFORMATION: Exam: MG Bilateral Screening 3D Mammography Exam date and time: 05/20/2025 1:26 PM Age: 75 years old Clinical indication: Screening examination. Her maternal grandmother had breast cancer. TECHNIQUE: Imaging protocol: Bilateral Screening tomosynthesis and 2D mammography including computer-aided detection (CAD) when performed. COMPARISON: 1. MG MM DIG SCREENING MAMM BI W/CAD 05/19/2024 4:05 PM 2. MG MM DIG SCREENING MAMM BI W/CAD 05/14/2023 12:51 PM 3. MG MM DIG SCREENING MAMM BI W/CAD 05/10/2022 1:19 PM FINDINGS: MAMMOGRAPHY: Breast composition: There are scattered areas of fibroglandular density. Mass: None. Architectural distortion: None. Calcifications: No suspicious calcifications. Asymmetric density: None. Skin thickening: None. Axillary adenopathy: None. IMPRESSION: No mammographic evidence of malignancy. Annual screening is recommended unless otherwise clinically indicated. ASSESSMENT: BI-RADS Category 1: Negative.
--- OUTSIDE RECORDS SUMMARY | 2025-05-20 13:20 | XMS_ITS | Patient Health Record ---
[facility] [address] [place] [id number] Care Team Providers Care Transformation Specialist Name Role Phone PontiacAndrewGuillaume Primary Care Provider Allergies Allergen (clinical drug [...] next check 6 weeks ideal INR 2-3 PT/INR (in house) Reviewed date:11/23/2024 02:06:14 PM Interpretation:2.4 Performing Lab: Notes/Report: 2.4 PT 29.0 INR 2.4 current dose 5 mg MF, 2.5 mg AOD new dose no change next check 6 weeks ideal INR 2-3 PT/INR (in house) Reviewed date:01/04/2025 10:28:22 AM Interpretation: Performing Lab: Notes/Report: INR 2.9 current dose 5mg M,F, 2.5mg AOD new dose no change next check 6 weeks ideal INR 2-3 PT/INR (in house) Reviewed date:06/08/2024 09:43:08 PM Interpretation: Performing Lab: Notes/Report: INR 2.7 current dose 5mg M&F, 2.5mg AOD new dose no change next check 6 weeks ideal INR 2-3 Modified barium swallow Reviewed date:08/16/2024 09:06:14 AM Interpretation: Performing Lab: Notes/Report: Modified barium swallow Reviewed date:08/16/2024 09:06:14 AM Interpretation: Performing Lab: Notes/Report: PT/INR (in house) Reviewed date:08/31/2024 09:26:46 AM Interpretation: Performing Lab: Notes/Report: INR 2.3 current dose 5mg M&F, 2.5mg AOD new dose no change next check 6 weeks ideal INR 2-3 P-Parathyroid Hormone (PTH) Intact Reviewed date:05/19/2025 04:14:25 PM Interpretation:Normal Performing Lab: Notes/Report: Test performed by [facility] [address] [place], [place] [address] [place] , [facility] [place] [address] Chito Yap MD, Irrigation Teacher CLIA: [id number] Parathyroid Hormone (PTH) Intact 23.8 17.9-58.6 pg/mL The parathyroid assay has been updated. Please note there is a slight difference in the reference range values. P-Phosphorus Reviewed date:05/19/2025 04:14:32 PM Interpretation:Normal Performing Lab: Notes/Report: Test performed by [facility] [address] [place] [address] , [address], [place] [address] Chito Yap MD, Irrigation Teacher CLIA: [id number] Phosphorus 3.1 2.5-4.5 mg/dL P-Basic Metabolic Panel (BMP ) Reviewed date:05/19/2025 04:14:39 PM Interpretation:Normal Performing Lab: Notes/Report: Test performed by [facility] [address] [place], [place] [address] [place], [address], [place] [address] Chito Yap MD, Irrigation Teacher CLIA: [id number] Sodium 135 135-145 mmol/L Potassium 4.8 3.5-5.3 mmol/L Chloride 99 97-108 mmol/L CO2 24 20-32 mmol/L Glucose 94 65-99 mg/dL BUN 22 8-23 mg/dL Creatinine 0.97 0.50-1.00 mg/dL Calcium 10.3 8.6-10.4 mg/dL eGFR by Creatinine 60 >59 mL/min/1.73m2 PT/INR (in house) Reviewed date:05/18/2025 12:20:26 PM Interpretation: Performing Lab: Notes/Report: INR 1.6 current dose 5mg F 2.5mg AOD new dose 5mg M&F, 2.5mg AOD next check 6 weeks PT/INR (in house) Reviewed date:04/05/2025 10:54:03 AM [...] 100 - 400 P-Comprehensive Metabolic Pa iggy ([facility]) Reviewed date:04/05/2025 12:37:37 PM Interpretation:cl 109, gluc 103, bun 34, Cr 1.22, gfr 46 Performing Lab: Notes/Report: CLIA: [id number] Chito Yap MD, Irrigation Teacher [address] [place] [address] , [address], [place] [address] Test performed by [id number], [facility] Sodium 144 135-145 mmol/L Potassium 4.7 3.5-5.3 [...] Interpretation:Normal Performing Lab: Notes/Report: Test performed by [facility] [address] [place] [address] , [facility] [place] [address] Chito Yap MD, Irrigation Teacher CLIA: [id number] Thyroxine Free (free T4) 1.33 0.86-1.76 ng/dL P-Lipid Panel Reviewed date:04/05/2025 12:37:37 PM Interpretation:non-hdl 130 Performing Lab: Notes/Report: Test performed by [facility] [address] [place] [address] , [place] [address] Chito Yap MD, Irrigation Teacher CLIA: [id number] Cholesterol 187 <200 mg/dL Triglycerides 123 <150 [...] Interpretation:Normal Performing Lab: Notes/Report: Test performed by [facility] [address] [place], [place] [address] [place] , [address], [place] [address] Chito Yap MD, Irrigation Teacher CLIA: [id number] TSH 3.64 0.43-5.25 mU/L P-Vitamin D 25-Hydroxy Reviewed date:04/05/2025 12:37:37 PM Interpretation:Normal Performing Lab: Notes/Report: Test performed by [facility] [address] [place] [address] , [address], [place] [address] Chito Yap MD, Irrigation Teacher CLIA: [id number] Vitamin D 25-Hydroxy 87.8 30.0-100.0 ng/mL Interpretation of Vitamin D 25 OH: < 20 ng/mL - Deficiency 20 - 29 ng/mL - Insufficiency 30 - 100 ng/mL - Sufficiency > 100 ng/mL - Super-therapeutic- toxicity may occur above this level. Clinical correlation required. PT/INR (in house) Reviewed date:02/14/2025 09:58:11 PM Interpretation: Performing Lab: Notes/Report: PT 34.1 INR 2.8 current dose 5mg M,F, 2.5mg AOD new dose no change next check 6 weeks ideal INR 2-3 PT/INR (in house) Reviewed date:07/19/2024 01:58:14 PM Interpretation: Performing Lab: Notes/Report: INR 2.5 current dose 5mg M&F, 2.5mg AOD new dose no change next check 6 weeks ideal INR 2-3 X ray : Shoulder, right Reviewed date:07/20/2024 09:33:41 AM Interpretation:acromionavicular degenerative change Performing Lab: Notes/Report: acromionavicular degenerative change Medications Medication SIG (Take, Route, Frequency, Duration) Notes Start Date End Date Status Hair Skin Nails - 1 cap(s) orally once a day Active Melatonin 10 MG 1 cap(s) orally once a day (at bedtime) Active Warfarin Sodium 5 MG 1 tablet Orally Onc e a day Active Vitamin B-12 1000 MCG 1 tab(s) orally on ce a day Active Pravastatin Sodium 40 MG Take 1 tablet b y mouth once daily Active valACYclovir HCl 1 GM 2 tablets orally t wice a day; Duration: 1 days Active Propranolol HCl 80 MG 1/2 tablet Orally once a day; Duration: 90 days Active Vitamin D3 50 MCG (2000 UT) 1 tab(s) orally twice a day 07/03/2010 Active Farxiga 10 MG 1 tablet Orally Once a day; Duration: 90 days 04/10/2025 Not-Rufinoin g Calcium-Vitamin D-Minerals 600-400 MG-UNIT 1 tab(s) orally twice a day Active Glucosamine Chond Cmp Advanced - as directed Orally Active DULoxetine HCl 30 MG 1 capsule Orally On ce a day; Duration: 90 days Active Doxycycline Hyclate 100 MG 1 tab(s) orally once daily Active Diclofenac Sodium 75 MG 1 tablet orally Once a day; Duration: 90 days Active Immunizations Vaccine Route Administration Date Status Comme nts xFluzone Intradermal (18-64yrs)-trivalent ID Intradermal 04/23/2012 Administered xFluzone (6mos and older)-trivalent IM Intramuscular 2011 Administered xFlu shot-36 months and older IM Intramuscular 05/11/2007 Administered xFlu shot-36 months and older IM Intramuscular 06/06/2008 Administered xFlu shot-36 months and older IM Intramuscular 03/30/2009 Administered xFlu shot-36 months and older IM Intramuscular 04/19/2010 Administered Prevnar (PCV20) IM Intramuscular 08/05/2022 Administered Prevnar (PCV13) IM Intramuscular 05/06/2013 Administered PNEUMOVAX 23 VACCINE Unknown 05/29/2015 Administered PNEUMOVAX 23 VACCINE IM Intramuscular 04/05/2019 Administe red Hepatitis A (adult) Unknown 07/29/2018 Administered Fluzone High Dose (65yr and older) IM Intramuscular 05/24/2013 Administered Fluzone High Dose (65yr and older) IM Intramuscular 05/30/2014 Administered Fluzone High Dose (65yr and older) IM Intramuscular 05/09/2015 Administered Fluzone High Dose (65yr and older) IM Intramuscular 05/13/2016 Administered Fluzone High Dose (65yr and older) IM Intramuscular 04/24/2017 Administered Fluzone High Dose (65yr and older) IM Intramuscular 04/07/2018 Administered Fluzone High Dose (65yr and older) IM Intramuscular 04/05/2019 Administered Fluzone High Dose (65yr and older) IM Intramuscular 03/24/2020 Administered Fluzone High Dose (65yr and older) IM Intramuscular 04/02/2021 Administered Fluzone High Dose (65yr and older) IM Intramuscular 04/01/2022 Administered Fluzone High Dose (65yr and older) IM Intramuscular 04/09/2023 Administered Fluzone High Dose (65yr and older) IM Intramuscular 03/24/2024 Administered Fluzone High Dose (65yr and older) IM Intramuscular 05/18/2025 Administered DT, 7 YEARS OR OLDER Unknown 09/23/1996 Administered COVID 19 Moderna Unknown 09/20/2020 Administered COVID 19 Moderna Unknown 10/18/2020 Administered COVID 19 Moderna Unknown 06/06/2021 Administered Problems Problem Type SNOMED Code ICD Code Onset Dates Problem Status W/U Status Risk Notes Problem Hypothyroidism (65283925) Hypothyroidism, unspecified (E03.9) Active confirmed Problem Low back pain (639519633) Low back pain (M54.5) Active confirmed Problem Hyperkalemia (99909954) Hyperkalemia (E87.5) Active confirmed Problem Vitamin D deficiency (59841595) Vitamin D deficiency (E55.9) Active confirmed Problem Anxiety (51981847) Anxiety (F41.9) Active confirmed Problem Long-term current use of anticoagulant (080683296) snf current use of anticoagulant (Z79.01) Active confirmed Problem Lumbar spinal stenosis (50337098) Lumbar spinal stenosis (M48.06) Active confirmed Problem Mixed hyperlipidemia (335117058) Mixed hyperlipidemia (E78.2) Active confirmed Problem Adjustment disorder with mixed anxiety and depressed mood (148775651) Adjustment disorder with mixed anxiety and depressed mood (F43.23) Active confirmed Problem Chronic migraine without aura, non-intractable (016305868371367) Chronic migraine without aura, not intractable, without status migrainosus (G43.709) Active confirmed Problem Chronic pain (34073117) Other chronic pain (G89.29) Active confirmed Problem History of nutritional deficiency (70039860534921) History of vitamin D deficiency (Z86.39) Active confirmed Problem Chronic cystitis (93452689) Chronic cystitis (N30.20) Active confirmed Problem Diverticulosis of colon (847709068) Diverticulosis of colon (K57.30) Active confirmed Problem Chronic idiopathic constipation (32958064) Chronic idiopathic constipation (K59.04) Active confirmed Problem Embolism from thrombosis of vein of lower extremity (553656613) 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) Active confirmed Problem Allergic rhinitis (51856145) Non-seasonal allergic rhinitis, unspecified trigger (J30.89) Active confirmed Problem Osteopenia of left hip (M85.852) Active confirmed Problem Irritable bowel syndrome (67368195) Spasm of bowel (K58.9) Active confirmed Problem Chronic kidney disease stage 3A (disorder) (115976601) CKD stage 3a, GFR 45-59 ml/min (N18.31) Active confirmed Vital Signs Heart Rate 72 /min 05/18/2025 Blood pressure diastolic 70 mm Hg 05/18/2025 Height 65 in 05/18/2025 Blood pressure systolic 118 mm Hg 05/18/2025 Weight 147.4 lbs 05/18/2025 BMI 24.53 kg/m2 05/18/2025 Encounters Encounter Location Date Provider Diagnosis [facility] [address] [facility] [address] [place], [place] [id number] 06/07/2024 Guillaume Dietz Recurrent deep vein thrombosis (DVT) I82.409 ; snf current use of anticoagulant Z79.01 and Chronic cough R05.3 [facility] [address] [place], [place] [id number] 07/19/2024 Guillaume Pontiac Recurrent deep vein thrombosis (DVT) I82.409 ; snf current use of anticoagulant Z79.01 and Right shoulder pain, unspecified chronicity M25.511 [facility] [address] [place], [place] [id number] 08/16/2024 Guillaume Pontiac Acute pain of left k nee M25.562 [facility] [address] [place], [place] [id number] 08/30/2024 Guillaume Pontiac Recurrent deep vein thrombosis (DVT) I82.409 and 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409 ; snf current use of anticoagulant Z79.01 ; Polyarthralgia M25.50 ; Other chronic pain G89.29 ; Colon cancer screening declined Z53.20 and BMI 24.0-24.9, adult Z68.24 [facility] [address] [place], [place] [id number] 02/14/2025 Guillaume Pontiac Recurrent deep vein thrombosis (DVT) I82.409 and 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 [facility] [address] [place], [place] [id number] 04/04/2025 Guillaume Pontiac Recurrent deep vein thrombosis (DVT) I82.409 ; snf current use of anticoagulant Z79.01 ; Mixed hyperlipidemia E78.2 ; Hypothyroidism, unspecified E03.9 ; Vitamin D deficiency E55.9 ; Pain in left knee M25.562 ; Other chronic pain G89.29 and BMI 24.0-24.9, adult Z68.24 [facility] [address] [place], [place] [id number] 05/18/2025 Guillaume Pontiac Recurrent deep vein thrombosis (DVT) I82.409 ; snf current use of anticoagulant Z79.01 ; CKD stage 3a, GFR 45-59 ml/min N18.31 and Encounter for immunization Z23 [facility] [address] [place], [place] [id number] 07/20/2024 Guillaume Pontiac [facility] [address] [place], [place] [id number] 08/16/2024 Guillaume Pontiac [facility] [address] [place], [place] [id number] 04/05/2025 Guillaume Pontiac [facility] [address] [place], [place] [id number] 04/13/2025 Guillaume Pontiac [facility] [address] [place], [place] [id number] 05/02/2025 Guillaume Pontiac [facility] [address] [place], [place] [id number] 05/03/2025 Guillaume Pontiac Assessments Encounter Date Diagnosis (ICD Code) Assessment Notes Treatment Notes Treatment Clinical Notes Section Notes 06/07/2024 snf current use of anticoagulant (ICD-10 - Z79.01) 06/07/2024 Recurrent deep vein thrombosis (DVT) (ICD-10 - I82.409) 07/19/2024 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 (ICD-10 - Z79.01) 07/19/2024 Recurrent deep vein thrombosis (DVT) (ICD-10 - I82.409) 08/16/2024 Acute pain of left knee (ICD-10 - M25.562) Symptoms have already improved, plan rest, ice, compression and elevation 08/30/2024 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 (ICD-10 - Z79.01) 08/30/2024 Recurrent deep vein thrombosis (DVT) (ICD-10 - I82.409) 10/11/2024 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 (ICD-10 - Z79.01) 10/11/2024 Recurrent deep vein thrombosis (DVT) (ICD-10 - I82.409) 11/22/2024 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 (ICD-10 - Z79.01) 11/22/2024 Recurrent deep vein thrombosis (DVT) (ICD-10 - I82.409) 01/03/2025 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 (ICD-10 - Z79.01) 01/03/2025 Recurrent deep vein thrombosis (DVT) (ICD-10 - I82.409) 02/14/2025 snf current use of anticoagulant (ICD-10 - Z79.01) 02/14/2025 Recurrent deep vein thrombosis (DVT) (ICD-10 - I82.409) 04/04/2025 snf current use of anticoagulant (ICD-10 - Z79.01) 04/04/2025 Recurrent deep vein thrombosis (DVT) (ICD-10 - I82.409) 05/18/2025 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 (ICD-10 - Z79.01) 05/18/2025 Recurrent deep vein thrombosis (DVT) (ICD-10 - I82.409) 05/18/2025 CKD stage 3a, GFR 45-59 ml/min (ICD-10 - N18.31) Patient could not afford [facility], recheck labs today 04/04/2025 Mixed hyperlipidemia (ICD-10 - E78.2) 01/03/2025 Polyarthralgia (ICD-10 - M25.50) 11/22/2024 Mixed hyperlipidemia (ICD-10 - E78.2) 07/19/2024 Right shoulder pain, unspecified chronicity (ICD-10 - M25.511) 06/07/2024 Chronic cough (ICD-10 - R05.3) 11/22/2024 Anxiety (ICD-10 - F41.9) 01/03/2025 Other chronic pain (ICD-10 - G89.29) Patient will call when she wants to proceed with pain management evaluation 04/04/2025 Hypothyroidism, unspecified (ICD-10 - E03.9) 05/18/2025 Encounter for immunization (ICD-10 - Z23) 04/04/2025 Vitamin D deficiency (ICD-10 - E55.9) 01/03/2025 Colon cancer screening declined (ICD-10 - Z53.20) 11/22/2024 BMI 24.0-24.9, adult (ICD-10 - Z68.24) 01/03/2025 BMI 24.0-24.9, adult (ICD-10 - Z68.24) 04/04/2025 Pain in left knee (ICD-10 - M25.562) 04/04/2025 Other chronic pain (ICD-10 - G89.29) 04/04/2025 BMI 24.0-24.9, adult (ICD-10 - Z68.24) Plan Of Treatment Pending Test Test Name Order Date Mammogram 05/03/2025 Next Appt Details Provider Name:Guillaume Perrin , 06/29/2025 11:30:00 AM, [address], [address], [place], [place], [id number], Insurance Providers Payer Name Payer Address Payer Phone Subscriber Number Group Number Insured Name Patient Relationship to Insured Coverage Start Date Coverage End Date MEDICARE PART B [address] [address] [place] [address] [id number] MARIANNE PAGE Self - [place] [id number] MARIANNE PAGE Self - patient is the insured Medications Administered Medication Instructions Date of Administration Dosage Notes Depo- Medrol 40 mg/ml 03/24/2014 1.5 mL Depo- Medrol 40 mg/ml 12/20/2022 1 mL Dexamethasone 09/24/2022 1 mL Medical (General) History Medical History History ICD Code Migraines Hyperlipidemia 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 Colon polyps Diverticulosis, Colonoscopy- 2018 Kidney Stones Lumbar Spinal Stenosis, MRI, 03/2014 Degenerative Disc Disease RT Mid- Shaft Femur Traumatic Fracture, s/p ORIF 05/2015 RT Lower DVT, 07/2015 LT Leg DVT, 11/2017 Hemorrhoids, Colonoscopy 2018 Pulmonary Embolism, 04/2019 RT Thigh Hematoma, s/p surgery 04/2019, Transfusion of 4 units of PRBC's Chronic Cystitis, s/p Urology evaluation 06/2021 Urinary Retention, 06/2021 osteoarthritis, left knee Surgical History Surgery Date(Month/Year) Tubal Ligation Total Hysterectomy Bladder Tack x 2 Tonsillectomy Cholecystectomy Colonoscopy: 2012 & 2018 RT Broken Femur Repair- 05/28/2015 RT knee - Screw Repair 09/2018 RT Femur Repair, Removal of Hardware 11/2018 Hospitalization History Reason Date(Month/Year) RT Lower PE- [facility] 04/25-03/2019 Surgery- [facility] 04/24/2019 RT Knee Pain- [facility] ER 01/21/2018
--- OUTSIDE RECORDS SUMMARY | 2025-05-20 13:21 | XMS_ITS | Encounter Summary ---
Author Organization [facility] Address [address] [place] [address] Care Team Providers Care Site Coordinator Name Role Phone Unavailable Primary Care Provider Unavailabl e Encounter Details Date Type Department Care Team (Late st Contact Info) Description 12/17/2012 Conversion Encounter [facility] [address] [place] [address] Interface, See Report Social History Tobacco Use Types Packs/Day Years Used Date Smoking Tobacco: Never Assessed Comments Unknown Sex and Gender Information Value Date Recorded Sex Assigned at Not on file Legal Sex Female 10:33 AM EDT Gender Identity Not on file Sexual Orientation Not on file documented as of this encounter Consult Notes * Interface, See Report - 12/17/2012 12:00 AM EDT [facility] [address] [place] [address] Patient: ROSE MOSS MR #: : [id number] Date of Visit: 12/17/2012 Attending Physician: Steven Hawkins Dictated By: STEVEN HAWKINS Referring Physician: IRAJ DEE PCP: Guillaume Dietz Diagnosis: VAGINAL VAULT PROLAPSE / CYSTOCELE Allergies: SULFA , MORPHINE, PCN History of present illness: PT PRESENT S WITH VAGINAL VAULT PROLAPSE, H/O 2 PREVIOUS REPAIRS. PT. C/O BULGE IN VAGINA, LOW BACK PAIN, FREQUENT UTI'S AND INCOMPLETE EMPTYING OF BLADDER. Past family and/or social history: Family history: Father - Colon CA/Pneumonia. Mother - Ovarian CA/Arthritis. Social history: Tobacco Y N PPD ETOH Y N # Drinks Marital Status Occupation [employer] WORK[employer] Past medical history: Medical: HYPERLIPIDEMIA, DIVERTICULOSIS, VARICOSE VEINS, ARTHRI TIS, OSTEOPENIA, SINUS , MIGRAINES,INSOMNIA, ACID REFLUX Surgical: HYSTERECTOMY/BSO, BILATERAL TUBAL LIGATION , BLADDER/RECTAL REPAIR, TIA Health maintenance: Mammogram: Colonoscopy: 11/19/11 Pap smear: 07/10/12 Tumor Marker: CT Scan: BMD: 07/21/05 Review of systems: Constitutional: No change in weight, no excessive fatigue. Psychiatric: +INSOMNIA. No history of anxiety, depression, bipolar disorder Eyes: +GLASSES. Vision unchanged Ears, Nose, Mouth, Throat: +SINUS PROBLEMS. Hearing normal, no swallowing difficulties, no sore throat Endocrine: No history of diabetes, thyroid disease, heat/cold intolerance Lymphatic: No enlarged lymph nodes Respiratory: +SLEEP APNEA (does NOT wear C-PAP). No shortness of breath, cough, asthma, wheezing Cardiovascular: +HYPERLIPIDEMIA. No angina, orthopnea, edema, hypertension, murmur Gastrointestinal: +REFLUX. +DIVERTICULOSIS. No constipation, no nausea, or vomiting Genitourinary: No dysuria, hematuria, urgency, or frequency Neurologic: +MIGRAINES. No numbness, weakness, syncope, seizures Musculoskeletal: +ARTHRITIS, +OSTEOPENIA. No muscle weakness Integumentary: No new skin lesions Gynecologic: +VAG VAULT PROLAPSE & CYSTOCELE . No abnormal bleeding, vaginal discharge, pelvic pain LMP: 07/21/1999 P: 2 Vag Deliveries: 2 C-sec: 0 Misc: 1 Hematologic: VARICOSE VEINS Medications: Medication Reconciliation for the patient has been reviewed in the EMR. Physical exam: Constitutional: Weight 172 Height 62 BP 9456 Pulse Temp Overweight woman in nad Neurological/Psychiatric: HEENT: Neck: Respiratory: Cardiovascular: Breasts: Gastrointestinal: Lymphatic: Extremities: , varicose veins BLE Skin: Gynecologic: External Genitalia: ; prior perineal repair noted Vagina: ; bladder neck supported. cystocele, rectocele, enterocele to introitus Cervix: Uterus: Ovaries: Parametria: Smooth. Rectovaginal: Hemoccult: Procedure note: Assessment: 62 year old with significant POP Plan: Options dicussed, diagrams reviewed. Patient declines pessary. She is considering Robotic assisted abdominosacralcopopexy with Murphy colpourethropexy, but wants to wait. I advised that she needs to be reevaluated if surgery is >3 months from now. Risks of procedure were reviewed in detail.She is considering mesh vs. Acell. All questions w ere answered. She is to call if she desires surgical intervention. Approved by: Steven Hawkins 12/17/2012, 12:37 PM cc: Guillaume Chavez documented in this encounter Plan of Treatment Not on file documented as of this encounter Visit Diagnoses Not on filedocumented in this encounter
--- OUTSIDE RECORDS SUMMARY | 2025-05-20 13:21 | XMS_ITS | Clinical Summary ---
Author Organization [facility] Address [address] [place] [address] Care Team Providers Care Office Professionals Name Role Phone Guillaume Dietz MD Primary Care Provider + [phone] Allergies Active Allergy Reactions Criticality Noted Date Comments Morphine Rash,Unknown - Patie nt states they do not know rxn details Low 05/27/2015 Penicillins Rash,Unknown - Patie nt states they do not know rxn details Low 05/27/2015 Sulfacetamide Rash,Unknown - Patie nt states they do not know rxn details Low 05/27/2015 Medications diclofenac (Voltaren) 75 MG EC tablet 1 tablet (75 mg) 1 time. 02/05/2017 Active Glucosamine HCl (GLUCOSAMINE PO) 09/09/2018 Active pravastatin (Pravachol) 40 MG tablet TAKE 1 TABLET BY MOUTH ONCE DAILY AT BEDTIME FOR 90 DAYS 01/25/2021 Active warfarin (Coumadin) 5 MG tablet Take 1 tablet (5 mg) by mouth. 03/23/2021 Active Melatonin 5 MG tablet tablet Take 2 tablets (10 mg) by mouth. Active doxycycline (Monodox) 100 MG capsule TAKE 1 CAPSULE BY MOUTH ONCE DAILY AT BEDTIME 04/17/2022 Active propranolol (Inderal) 80 MG tablet TAKE 1/2 (ONE-HALF) TABLET BY MOUTH ONCE DAILY 10/22/2022 Active Immunizations Immunization Administration Dates Next Due Pneumococcal Polysaccharide PPV23 05/29/2015 Family History Medical History Relation Name Comments Hypertension Mother Hypertension Other Relation Name Status Comments Mother Other Social History Tobacco Use Types Packs/Day Years Used Date Smoking Tobacco: Never Smokeless Tobacco: Never Tobacco Cessation:Counseling Given: Not Answered Alcohol Use Standard Drinks/Week Comments No 0 (1 standard drink = 0.6 oz pur e alcohol) PHQ-2 Answer Date Recorded Patient Health Questionnaire-2 Score 0 07/09/2023 Comments Unknown Sex and Gender Information Value Date Recorded Sex Assigned at Not on file Legal Sex Female 6:55 PM EDT Gender Identity Not on file Sexual Orientation Not on file Last Filed Vital Signs Vital Sign Reading Time Taken Comments Blood Pressure 126/77 07/07/2024 10:11 AM EST Pulse 60 07/07/2024 10:11 AM EST Temperature 36.6 C (97.9 F) 07/07/2024 10:11 AM EST Respiratory Rate 16 09/09/2019 8:53 AM EST Oxygen Saturation 97% 07/07/2024 10:11 AM EST Inhaled Oxygen Concentration - - Weight 63 kg (139 lb) 07/07/2024 10:11 AM EST Height 154.9 cm (5' 1 ) 07/07/2024 10:11 AM EST Body Mass Index 26.26 07/07/2024 10:11 AM EST Plan of Treatment Health Maintenance Due Date Last Done Comments [facility]-Bone Density Scan 1950 [facility]-Hepatitis C Screening 1950 [facility]-Medicare Annual Wellness (AWV) 1950 [facility]-Infant/Child/Adol SDOH Screenings 1950 [facility]- SDOH Screenings 1966 [facility]-Adult SDOH Screenings 1966 [facility]-DTaP,Tdap,and Td Vaccines (1 - Tdap) 09/24/1996 09/23/1996 [facility]-Zoster Vaccines (1 of 2) 1998 [facility]-RSV Vaccine: 60+ Years or (1 - 1-dose 75+ series) 2023 [facility]-Depression Screening 07/09/2024 07/09/2023 [facility]-VRTVO-80 Vaccine ( - season) 2025 05/15/2022, 06/06/2021, 10/18/2020, Additional history exists [facility]-Influenza Vaccine (#1) 03/21/202504/01, 04/02/2021, 03/24/2020, Additional history exists [facility]-Hepatitis A Vaccines Aged Out 07/29/2018 No longer eligible based on patient's age to complete this topic [facility]-Pneumococcal Vaccine: 50+ Years Completed 08/05/2022, 04/05/2019, 05/29/2015 [facility]-Obesity Intervention Completed 024, 01/14/2024, 07/09/2023, Additional history exists HPV Vaccines Aged Out No longer eligi ble based on patient's age to complete this topic [facility]-HIB Vaccines Aged Out No longer e ligible based on patient's age to complete this topic [facility]-IPV Vaccines Aged Out No longer e ligible based on patient's age to complete this topic [facility]-Rotavirus Vaccines Aged Out No lo nger eligible based on patient's age to complete this topic [place] [address] [facility] [place] [id number] Care Teams Office Professionals Relationship Specialty Start Date End Date Guillaume Dietz MD [address] [place] [address] PCP - General 12/01/20
--- OUTSIDE RECORDS SUMMARY | 2025-05-20 13:21 | XMS_ITS | Clinical Summary ---
Author Organization [facility] Address [address] [place] [address] Care Team Providers Care Cnc Applications Engineer Name Role Phone Unavailable Primary Care Provider Unavailabl e Social History Tobacco Use Types Packs/Day Years Used Date Smoking Tobacco: Never Assessed Abuse Screen Answer Date Recorded Unsafe at Home or Work/School Not on file Feels Threatened by Someone? Not on file 03/2023 Does Anyone Keep You from Co ntacting Others or Doint Things Outside the Home? Not on file 04/28/2023 Physical Sign of Abuse Present Not on file 1 Housing Stability Answer Date Recorded Current Living Arrangements Not on file 03/2023 Potentially Unsafe Housing Conditions Not on ubaldo e 04/28/2023 Family and Community Support Answer Ralph e Recorded Help with Day-to-Day Activities Not on file 04/28/2023 Lonely or Isolated Not on file 04/28/2023 Employment Answer Date Recorded Do you want help finding or keeping work or a jose maria b? Not on file 04/28/2023 Disabilities Answer Date Recorded Concentrating, Remembering, or Making Decisions Difficulty Not on file 04/28/2023 Doing Errands Independently Difficulty Not on fi le 04/28/2023 Education Answer Date Recorded Help with school or training? Not on file Preferred Language Not on file 04/28/2023 Comments Unknown Sex and Gender Information Value Date Recorded Sex Assigned at Not on file Legal Sex Female 10:33 AM EDT Gender Identity Not on file Sexual Orientation Not on file Plan of Treatment Health Maintenance Due Date Last Done Comments ANNUAL PHYSICAL 1950 DXA SCAN 1950 HEPATITIS C SCREENING 1950 TDAP/TD VACCINES (1 - Tdap) 1967 Pneumococcal Vaccine 50+ (1 of 1 - PCV) 1998 ZOSTER VACCINE (1 of 2) 1998 RSV Vaccine - Adults (1 - 1-dose 75+ series) 3 INFLUENZA VACCINE 02/18/2025 COVID-19 Vaccine (2023- season) 2025
--- OUTSIDE RECORDS SUMMARY | 2025-05-20 13:21 | XMS_ITS | Data Portability ---
Author Organization JADYN SKYLER [facility] [place] [facility] Address [address] [place] [address] Care Team Providers Care Back Padder Name Role Phone CHEPE PACK Primary Care Provider [phone] Assessment No assessment recorded. Plan of Treatment Reminders Order Date Submit Date Provider Last Modified By Organization Details Last Modified Time Details Appointments RECHECK 2024 11:45A M FRANCIS DELATORRE MD Not available Not available Not available Lab urinalysi s panel, auto 2024 025 [email or web address] [facility], [address], [place], [address], 11/24/2024 16:08:35 urinalysi s panel, auto 2024 025 [email or web address] [facility], [address], [address], [place], [address], 11/11/2024 22:16:21 urinalysi s panel, auto 2023 024 [email or web address] [facility], [address], [address], [place], [address], 05/17/2024 00:24:16 urinalysi s panel, auto 2023 024 [email or web address] [facility], [address], [address], [place], [address], 11/12/2023 14:59:53 urinalysi s panel, auto 2022 023 [facility], [address], [address], [place], [address], 05/13/2023 22:42:50 Referral None recorded. Procedures None recorded. Surgeries None recorded. Imaging None recorded. Medication Orders doxycycli ne monohydra te 100 mg capsule 2022 023 [email or web address] [facility], [address], [address], 11/12/2023 14:10:49 Patient TargetsNo targets recorded. Patient InstructionsNo instructions recorded. Reason for Referral None Reported. Results Created Date Observation Date Name Description Value Unit Range Abnormal Flag Note LastModifiedBy Organization Detail LastModifiedTime 05/12/2005/12/2023 urina lysis panel , auto Unknown Analyte Clean Catch Not Available [facility] [address], [address], 05/12/2023 12:46:15 05/12/2005/12/2023 urina lysis panel , auto Unknown Analyte Yellow Not Available [facility] [address], [place], [address], 05/12/2023 12:46:15 05/12/2005/12/2023 urina lysis panel , auto Unknown Analyte Clear Not Available [facility] [address], [address], 05/12/2023 12:46:15 05/12/2005/12/2023 urina lysis panel , auto Unknown Analyte 1.025 Not Available [facility] [address], [place], [address], 05/12/2023 12:46:15 05/12/2005/12/2023 urina lysis panel , auto Unknown Analyte 5.0 Not Available [facility] [address], [place], [address], 05/12/2023 12:46:15 05/12/2005/12/2023 urina lysis panel , auto Unknown Analyte 500 Manas/ul (++) Not Available [facility] [address], [place], [address], 05/12/2023 12:46:15 05/12/2005/12/2023 urina lysis panel , auto Unknown Analyte Negati ve Not Available [facility] [address], [place], [address], 05/12/2023 12:46:15 05/12/2005/12/2023 urina lysis panel , auto Unknown Analyte Trace Not Available [facility] [address], [place], [address], 05/12/2023 12:46:15 05/12/2005/12/2023 urina lysis panel , auto Unknown Analyte Normal Not Available [facility] [address], [place], [address], 05/12/2023 12:46:15 05/12/2005/12/2023 urina lysis panel , auto Unknown Analyte 15 mg/dl (Sm) Not Available [facility] [address], [place], [address], 05/12/2023 12:46:15 05/12/2005/12/2023 urina lysis panel , auto Unknown Analyte Normal Not Available [facility] [address], [place], [address], 05/12/2023 12:46:15 05/12/2005/12/2023 urina lysis panel , auto Unknown Analyte Negati ve Not Available [facility] [address], [place], [address], 05/12/2023 12:46:15 05/12/2005/12/2023 urina lysis panel , auto Unknown Analyte 50 Juno/ul Not Available [facility] [address], [place], [address], 05/12/2023 12:46:15 11/12/1911/12/2023 urina lysis panel , auto Unknown Analyte Clean Catch Not Available [facility] [address], [place], [address], 11/12/2023 14:29:20 11/12/1911/12/2023 urina lysis panel , auto Unknown Analyte Yellow Not Available [facility] [address], [place], [address], 11/12/2023 14:29:20 11/12/1911/12/2023 urina lysis panel , auto Unknown Analyte Cloudy Not Available [facility] [address], [place], [address], 11/12/2023 14:29:20 11/12/19 24 11/12/2023 urina lysis panel , auto Unknown Analyte 1.015 Not Available [facility] [address], [place], [address], 11/12/2023 14:29:20 11/12/19 24 11/12/2023 urina lysis panel , auto Unknown Analyte 1.003- 1.035 Not Available [facility] [address], [place], [address], 11/12/2023 14:29:20 11/12/19 24 11/12/2023 urina lysis panel , auto Unknown Analyte 5.0 Not Available [facility] [address] [place] [address] [address], [place], [address], 11/12/2023 14:29:20 11/12/19 24 11/12/2023 urina lysis panel , auto Unknown Analyte 5.0-8. 0 Not Available [facility] [address], [place], [address], 11/12/2023 14:29:20 11/12/19 24 11/12/2023 urina lysis panel , auto Unknown Analyte 500 Manas/ul (++) Not Available [facility] [address], [place], [address], 11/12/2023 14:29:20 11/12/19 24 11/12/2023 urina lysis panel , auto Unknown Analyte Negati ve Not Available [facility] [address], [place], [address], 11/12/2023 14:29:20 11/12/19 24 11/12/2023 urina lysis panel , auto Unknown Analyte Negati ve Not Available [facility] [address], [place], [address], 11/12/2023 14:29:20 11/12/19 24 11/12/2023 urina lysis panel , auto Unknown Analyte Negati ve Not Available [facility] [address], [place], [address], 11/12/2023 14:29:20 11/12/19 24 11/12/2023 urina lysis panel , auto Unknown Analyte Negati ve Not Available [facility] [address], [place], [address], 11/12/2023 14:29:20 11/12/19 24 11/12/2023 urina lysis panel , auto Unknown Analyte Negati ve Not Available [facility] [address], [place], [address], 11/12/2023 14:29:20 11/12/19 24 11/12/2023 urina lysis panel , auto Unknown Analyte Normal Not Available [facility] [address], [place], [address], 11/12/2023 14:29:20 11/12/19 24 11/12/2023 urina lysis panel , auto Unknown Analyte Normal Not Available [facility] [address], [place], [address], 11/12/2023 14:29:20 11/12/19 24 11/12/2023 urina lysis panel , auto Unknown Analyte Negati ve Not Available [facility] [address], [place], [address], 11/12/2023 14:29:20 11/12/19 24 11/12/2023 urina lysis panel , auto Unknown Analyte Negati ve Not Available [facility] [address], [place], [address], 11/12/2023 14:29:20 11/12/19 24 11/12/2023 urina lysis panel , auto Unknown Analyte Normal Not Available [facility] [address], [place], [address], 11/12/2023 14:29:20 11/12/19 24 11/12/2023 urina lysis panel , auto Unknown Analyte Normal 1 mg/dl Not Available [facility] [address], [place], [address], 11/12/2023 14:29:20 11/12/19 24 11/12/2023 urina lysis panel , auto Unknown Analyte Negati ve Not Available [facility] [address], [place], [address], 11/12/2023 14:29:20 11/12/19 24 11/12/2023 urina lysis panel , auto Unknown Analyte Negati ve Not Available [facility] [address], [place], [address], 11/12/2023 14:29:20 11/12/19 24 11/12/2023 urina lysis panel , auto Unknown Analyte 50 Juno/ul Not Available [facility] [address], [place], [address], 11/12/2023 14:29:20 11/12/19 24 11/12/2023 urina lysis panel , auto Unknown Analyte Negati ve Not Available [facility] [address], [place], [address], 11/12/2023 14:29:20 05/12/20 24 05/12/2024 urina lysis panel , auto Unknown Analyte Clean Catch Not Available [facility] [address], [place], [address], 05/12/2024 14:35:23 05/12/20 24 05/12/2024 urina lysis panel , auto Unknown Analyte Yellow Not Available [facility] [address], [place], [address], 05/12/2024 14:35:23 05/12/2005/12/2024 urina lysis panel , auto Unknown Analyte Clear Not Available [facility] [address], [place], [address], 05/12/2024 14:35:23 05/12/20 24 05/12/2024 urina lysis panel , auto Unknown Analyte 1.015 Not Available [facility] [address], [place], [address], 05/12/2024 14:35:23 05/12/2005/12/2024 urina lysis panel , auto Unknown Analyte 1.003- 1.035 Not Available [facility] [address], [place], [address], 05/12/2024 14:35:23 05/12/2005/12/2024 urina lysis panel , auto Unknown Analyte 6.0 Not Available [facility] [address], [place], [address], 05/12/2024 14:35:23 05/12/2005/12/2024 urina lysis panel , auto Unknown Analyte 5.0-8. 0 Not Available [facility] [address], [place], [address], 05/12/2024 14:35:23 05/12/2005/12/2024 urina lysis panel , auto Unknown Analyte 500 Manas/ul (++) Not Available [facility] [address], [place], [address], 05/12/2024 14:35:23 05/12/2005/12/2024 urina lysis panel , auto Unknown Analyte Negati ve Not Available [facility] [address], [place], [address], 05/12/2024 14:35:23 05/12/20 24 05/12/2024 urina lysis panel , auto Unknown Analyte Negati ve Not Available [facility] [address], [place], [address], 05/12/2024 14:35:23 05/12/2005/12/2024 urina lysis panel , auto Unknown Analyte Negati ve Not Available [facility] [address], [place], [address], 05/12/2024 14:35:23 05/12/2005/12/2024 urina lysis panel , auto Unknown Analyte Negati ve Not Available [facility] [address], [place], [address], 05/12/2024 14:35:23 05/12/2005/12/2024 urina lysis panel , auto Unknown Analyte Negati ve Not Available [facility] [address], [place], [address], 05/12/2024 14:35:23 05/12/2005/12/2024 urina lysis panel , auto Unknown Analyte Normal Not Available [facility] [address], [place], [address], 05/12/2024 14:35:23 05/12/2005/12/2024 urina lysis panel , auto Unknown Analyte Normal Not Available [facility] [address], [place], [address], 05/12/2024 14:35:23 05/12/2005/12/2024 urina lysis panel , auto Unknown Analyte Negati ve Not Available [facility] [address], [place], [address], 05/12/2024 14:35:23 05/12/2005/12/2024 urina lysis panel , auto Unknown Analyte Negati ve Not Available [facility] [address], [place], [address], 05/12/2024 14:35:23 05/12/2005/12/2024 urina lysis panel , auto Unknown Analyte Normal Not Available [facility] [address], [place], [address], 05/12/2024 14:35:23 05/12/2005/12/2024 urina lysis panel , auto Unknown Analyte Normal 1 mg/dl Not Available [facility] [address], [place], [address], 05/12/2024 14:35:23 05/12/2005/12/2024 urina lysis panel , auto Unknown Analyte Negati ve Not Available [facility] [address], [place], [address], 05/12/2024 14:35:23 05/12/2005/12/2024 urina lysis panel , auto Unknown Analyte Negati ve Not Available [facility] [address], [place], [address], 05/12/2024 14:35:23 05/12/2005/12/2024 urina lysis panel , auto Unknown Analyte 50 Juno/ul Not Available [facility] [address], [place], [address], 05/12/2024 14:35:23 05/12/20 24 05/12/2024 urina lysis panel , auto Unknown Analyte Negati ve Not Available [facility] [address], [place], [address], 05/12/2024 14:35:23 11/11/19 25 11/10/2024 urina lysis panel , auto Unknown Analyte Clean Catch Not Available [facility] [address], [place], [address], 11/10/2024 15:11:29 11/11/19 25 11/10/2024 urina lysis panel , auto Unknown Analyte Yellow Not Available [facility] [address], [place], [address], 11/10/2024 15:11:29 11/11/19 25 11/10/2024 urina lysis panel , auto Unknown Analyte Clear Not Available [facility] [address], [place], [address], 11/10/2024 15:11:29 11/11/19 25 11/10/2024 urina lysis panel , auto Unknown Analyte 1.010 Not Available [facility] [address], [place], [address], 11/10/2024 15:11:29 11/11/19 25 11/10/2024 urina lysis panel , auto Unknown Analyte 1.003 - 1.030 Not Available [facility] [address], [place], [address], 11/10/2024 15:11:29 11/11/19 25 11/10/2024 urina lysis panel , auto Unknown Analyte 8.0 Not Available [facility] [address], [place], [address], 11/10/2024 15:11:29 11/11/19 25 11/10/2024 urina lysis panel , auto Unknown Analyte 5.0 - 8.0 Not Available [facility] [address], [place], [address], 11/10/2024 15:11:29 11/11/19 25 11/10/2024 urina lysis panel , auto Unknown Analyte 500 Manas/uL Not Available [facility] [address], [place], [address], 11/10/2024 15:11:29 11/11/19 25 11/10/2024 urina lysis panel , auto Unknown Analyte Negati ve Not Available [facility] [address], [place], [address], 11/10/2024 15:11:29 11/11/19 25 11/10/2024 urina lysis panel , auto Unknown Analyte Negati ve Not Available [facility] [address], [place], [address], 11/10/2024 15:11:29 11/11/19 25 11/10/2024 urina lysis panel , auto Unknown Analyte Negati ve Not Available [facility] [address], [place], [address], 11/10/2024 15:11:29 11/11/19 25 11/10/2024 urina lysis panel , auto Unknown Analyte Negati ve Not Available [facility] [address], [place], [address], 11/10/2024 15:11:29 11/11/19 25 11/10/2024 urina lysis panel , auto Unknown Analyte Negati ve Not Available [facility] [address], [place], [address], 11/10/2024 15:11:29 11/11/19 25 11/10/2024 urina lysis panel , auto Unknown Analyte Normal Not Available [facility] [address], [place], [address], 11/10/2024 15:11:29 11/11/19 25 11/10/2024 urina lysis panel , auto Unknown Analyte Normal Not Available [facility] [address], [place], [address], 11/10/2024 15:11:29 11/11/19 25 11/10/2024 urina lysis panel , auto Unknown Analyte Negati ve Not Available [facility] [address], [place], [address], 11/10/2024 15:11:29 11/11/19 25 11/10/2024 urina lysis panel , auto Unknown Analyte Negati ve Not Available [facility] [address], [place], [address], 11/10/2024 15:11:29 11/11/19 25 11/10/2024 urina lysis panel , auto Unknown Analyte Normal Not Available [facility] [address], [place], [address], 11/10/2024 15:11:29 11/11/19 25 11/10/2024 urina lysis panel , auto Unknown Analyte Normal Not Available [facility] [address], [place], [address], 11/10/2024 15:11:29 11/11/19 25 11/10/2024 urina lysis panel , auto Unknown Analyte Negati ve Not Available [facility] [address], [place], [address], 11/10/2024 15:11:29 11/11/19 25 11/10/2024 urina lysis panel , auto Unknown Analyte Negati ve Not Available [facility] [address], [place], [address], 11/10/2024 15:11:29 11/11/19 25 11/10/2024 urina lysis panel , auto Unknown Analyte 50 Juno/uL Not Available [facility] [address], [place], [address], 11/10/2024 15:11:29 11/11/19 25 11/10/2024 urina lysis panel , auto Unknown Analyte Negati ve Not Available [facility] [address], [place], [address], 11/10/2024 15:11:29 11/25/19 25 11/24/2024 urina lysis panel , auto Unknown Analyte Clean Catch Not Available [facility] [address], [place], [address], 11/24/2024 15:26:52 11/25/19 25 11/24/2024 urina lysis panel , auto Unknown Analyte Yellow Not Available [facility] [address], [place], [address], 11/24/2024 15:26:52 11/25/19 25 11/24/2024 urina lysis panel , auto Unknown Analyte Clear Not Available [facility] [address], [place], [address], 11/24/2024 15:26:52 11/25/19 25 11/24/2024 urina lysis panel , auto Unknown Analyte 1.010 Not Available [facility] [address], [place], [address], 11/24/2024 15:26:52 11/25/19 25 11/24/2024 urina lysis panel , auto Unknown Analyte 1.003 - 1.030 Not Available [facility] [address], [place], [address], 11/24/2024 15:26:52 11/25/19 25 11/24/2024 urina lysis panel , auto Unknown Analyte 6.0 Not Available [facility] [address], [place], [address], 11/24/2024 15:26:52 11/25/19 25 11/24/2024 urina lysis panel , auto Unknown Analyte 5.0 - 8.0 Not Available [facility] [address], [place], [address], 11/24/2024 15:26:52 11/25/19 25 11/24/2024 urina lysis panel , auto Unknown Analyte 500 Manas/uL Not Available [facility] [address], [place], [address], 11/24/2024 15:26:52 11/25/19 25 11/24/2024 urina lysis panel , auto Unknown Analyte Negati ve Not Available [facility] [address], [place], [address], 11/24/2024 15:26:52 11/25/19 25 11/24/2024 urina lysis panel , auto Unknown Analyte Negati ve Not Available [facility] [address], [place], [address], 11/24/2024 15:26:52 11/25/19 25 11/24/2024 urina lysis panel , auto Unknown Analyte Negati ve Not Available [facility] [address], [place], [address], 11/24/2024 15:26:52 11/25/19 25 11/24/2024 urina lysis panel , auto Unknown Analyte Negati ve Not Available [facility] [address], [place], [address], 11/24/2024 15:26:52 11/25/19 25 11/24/2024 urina lysis panel , auto Unknown Analyte Negati ve Not Available [facility] [address], [place], [address], 11/24/2024 15:26:52 11/25/19 25 11/24/2024 urina lysis panel , auto Unknown Analyte Normal Not Available [facility] [address], [place], [address], 11/24/2024 15:26:52 11/25/19 25 11/24/2024 urina lysis panel , auto Unknown Analyte Normal Not Available [facility] [address], [place], [address], 11/24/2024 15:26:52 11/25/19 25 11/24/2024 urina lysis panel , auto Unknown Analyte Negati ve Not Available [facility] [address], [place], [address], 11/24/2024 15:26:52 11/25/19 25 11/24/2024 urina lysis panel , auto Unknown Analyte Negati ve Not Available [facility] [address], [place], [address], 11/24/2024 15:26:52 11/25/19 25 11/24/2024 urina lysis panel , auto Unknown Analyte Normal Not Available [facility] [address], [place], [address], 11/24/2024 15:26:52 11/25/19 25 11/24/2024 urina lysis panel , auto Unknown Analyte Normal Not Available [facility] [address], [place], [address], 11/24/2024 15:26:52 11/25/19 25 11/24/2024 urina lysis panel , auto Unknown Analyte Negati ve Not Available [facility] [address], [place], [address], 11/24/2024 15:26:52 11/25/19 25 11/24/2024 urina lysis panel , auto Unknown Analyte Negati ve Not Available [facility] [address], [place], [address], 11/24/2024 15:26:52 11/25/19 25 11/24/2024 urina lysis panel , auto Unknown Analyte Trace Not Available [facility] [address], [place], [address], 11/24/2024 15:26:52 11/25/19 25 11/24/2024 urina lysis panel , auto Unknown Analyte Negati ve Not Available [facility] [address], [place], [address], 11/24/2024 15:26:52 06/02/20 23 06/02/2023 US, retro perit oneum , limit ed No observ ation record ed. [address], [place], [address], 06/08/2023 23:21:31 Result Notes None recorded. Problems No Known Problems Procedures Surgical History Date Name Laterality Status Provider Name and Address Organization Details Recorded Time Pessary cleaning completed FRANCIS DELATORRE MD [address] [place] [address], [address], [facility] 11/11/2024 22:15:39 4 Pessary cleaning completed FRANCIS DELATORRE MD [address] [place] [address], [address], [facility] 05/17/2024 00:23:34 4 Pessary cleaning completed FRANCIS DELATORRE MD [address] [place] [address], [address], [facility] 11/12/2023 14:59:27 3 Pessary cleaning completed FRANCIS DELATORRE MD [address] [place] [address], [address], [facility] 11/10/2022 20:01:41 2 Pessary Insertion completed FRANCIS DELATORRE MD [address] [place] [address], [address], [facility] 04/16/2022 13:05:48 Imaging Results None recorded. Procedure Notes None recorded. Medical Equipment None Reported. Allergies Allergen ID Allergen Name Allergen Category Reaction Reaction Severity Criticality Documentation Date Start Date Code Code System Note Provider Name and Address Organization Details Recorded Time 615402 morphine sulfate medicatio n Not available Not available Not available 06/13/20162005 94218 RxNorm Comme nt: Creat ed By: Paul gutierres Date: 06/04 12:41 :20 PM; Not Available [facility] 6 10:21:53 861027 Substance with sulfonami de structure and antibacte rial mechanism of action (substanc e) medicatio n Not available Not available Not available 06/13/20162005 31215 8003 SNOMED Comme nt: Creat ed By: Paul Granados bhavik Date: 06/04 12:40 :50 PM; Not Available [facility] 6 11:19:52 832105 Product containin g penicilli n (product) medicatio n Not available Not available Not available 10/12/2021 62809 8001 SNOMED Maki Yost [facility] 12:00:42 Medications Name Sig Start Date Stop Date Status Note LastModified by Organization Details LastModified Time propranol ol 80 mg tablet TAKE 1/2 (ONE-HERMANN F) TABLET BY MOUTH ONCE DAILY active Not Available Not Available No t Available cefuroxim e axetil 250 mg tablet TAKE 1 TABLET BY MOUTH EVERY 12 HOURS FOR 7 DAYS 10/12 completed Not Available Not Available Not Available pravastat in 40 mg tablet TAKE 1 TABLET BY MOUTH ONCE DAILY AT BEDTIME FOR 90 DAYS active Not Available Not Available No t Available valacyclo vir 1 gram tablet TAKE 2 TABLETS BY MOUTH TWICE DAILY active Not Available Not Available No t Available ciproflox acin 250 mg tablet TAKE 1 TABLET BY MOUTH EVERY 12 HOURS FOR 7 DAYS 11/11 completed Not Available Not Available Not Available ciproflox acin 500 mg tablet TAKE 1 TABLET BY MOUTH EVERY 12 HOURS FOR 7 DAYS 10/12 completed Not Available Not Available Not Available triamcino lone acetonide 0.1 % topical cream 10/12 completed Not Available Not Available Not Available terbinafi ne HCl 250 mg tablet TAKE 1 TABLET BY MOUTH ONCE DAILY FOR 21 DAYS active Not Available Not Available No t Available propranol ol 40 mg tablet Daily 10/12 completed Frequenc y: daily;Me dication Descript ion: proprano lol; refills: 0 Not Available Not Available Not Available doxycycli ne monohydra te 100 mg capsule Take 1 capsule by mouth once daily at bedtime 2024 active Not Available Not Available Not Avai lable Macrodant in 50 mg capsule Take 1 capsule every 6 hours by oral route. active Not Available Not Available No t Available warfarin 5 mg tablet TAKE 1 TABLET BY MOUTH ONCE DAILY active Not Available Not Available No t Available diclofena c sodium 75 mg tablet,de layed release TAKE 1 TABLET BY MOUTH TWICE DAILY active Not Available Not Available No t Available cefuroxim e axetil 500 mg tablet TAKE 1 TABLET BY MOUTH EVERY 12 HOURS FOR 7 DAYS 11/11 completed Not Available Not Available Not Available levofloxa thomas 500 mg tablet 10/12 completed Not Available Not Available Not Available nitrofura ntoin monohydra te/macroc rystals 100 mg capsule TAKE 1 CAPSULE BY MOUTH TWICE DAILY FOR 7 DAYS 10/12 completed Not Available Not Available Not Available duloxetin e 30 mg capsule,d elayed release TAKE 1 CAPSULE BY MOUTH ONCE DAILY active Not Available Not Available No t Available Boniva 150 mg tablet 10/12 completed Medicati on Descript ion: ibandron ate; Route:or al; refills: 0 Not Available Not Available Not Available melatonin active Not Available Not Leelee ilable Not Available cyanocoba stephanie (vitamin B-12) active Not Available Not Available Not Available calcium active Not Available Not Avail able Not Available cranberry active Not Available Not Leelee ilable Not Available Glucosami ne active Not Available Not Available Not Available Centrum Silver active Not Available Not Available Not Available Vitamin D3 active Not Available Not Available Not Available Premarin 10/12 completed Duration : 10 days;Med ication Descript ion: conjugat ed estrogen s; Route:or al; refills: 0; Quantity :21 tablet Not Available Not Available Not Available Alive Hair, Skin and Nails active Not Available Not Available Not Available Vitals Date Recorded Body height Body mass index (BMI) Body weight Provider Name and Address Organization Details Last Updated DateTime 11/10/2024 154.94 cm 26.8 kg/m2 53761.12 ervin Xenia [facility] 11/10/2024 15:12:03 Date Recorded Body height Body mass index (BMI) Body weight Provider Name and Address Organization Details Last Updated DateTime 11/12/2023 154.94 cm 24.6 kg/m2 50722.01 g Lauren Nolasco [facility] 11/12/2023 14:10:39 Date Recorded Body height Body mass index (BMI) Body weight Provider Name and Address Organization Details Last Updated DateTime 11/24/2024 160.02 cm 26.2 kg/m2 90387.67 g Vianca Zaki [facility] 11/24/2024 15:31:23 Date Recorded Body height Body mass index (BMI) Body weight Provider Name and Address Organization Details Last Updated DateTime 05/12/2023 154.94 cm 24.9 kg/m2 18487.19 ervin Xenia Stroud [facility] 05/12/2023 12:45:56 Date Recorded Body height Body mass index (BMI) Body weight Provider Name and Address Organization Details Last Updated DateTime 05/12/2024 154.94 cm 26.8 kg/m2 56307.12 g Gertrude Smith [facility] 05/12/2024 14:30:00 Social History Question Answer Notes LastModified by Organizat ion Details LastModified Time Tobacco Smoking Status Never Smoker Maki martinez, [facility] 10/12/2021 12:30:19 What Was The Date Of Your Most Recent Tobacco Screening? 11/24/2024 [email or web address] Information not available 11/24/2024 What Is Your Relationship Status? Information not available 10/12/2021 Sex: Unknown Functional Status Question Answer Note LastModified by Organization D etails LastModified Time What is your level of alcohol consumption? None Information not available 10/12/2021 Mental Status None recorded. Family History Relationship Description Onset Age of this Age Resolved Age Notes LastModified by Organization Details LastModified Time Father Family history of malignant neoplasm [email or web address] Not available 2021 12:29:14 Medical History Condition Response Kidney Stones Y High Cholesterol Y Gynecological HistoryNo gynecological history recorded. Obstetrics History GPAL:G 0 P 0 0 0 0 Past Encounters Encounter ID Performer Location Encounter Start Date Encounter Closed Date Diagnosis/Indication Diagnosis SNOMED-CT Code Diagnosis ICD10 Code Diagnosis IMO Codes Diagnosis Note [id number] MD AARON [facility] [address] [address] 10/12/2021 10:42:37 10/12/2021 12:27:40 Chronic infective cystitis 246612012 N30.20 we will switch her to doxycyclin e daily at bedtime Cystocele 181953940 N81. 10 we discussed at length considerat ion of pessary placement and she will consider this [id number] MD AARON [facility] [address] [address] 04/08/2022 11:30:46 04/08/2022 12:32:50 Prolapse of female genital organs 85714756 N81.9 follow-up 2 months Chronic in fective cystitis 627857007 N30.20 we will switch her to doxycyclin e daily at bedtime [id number] FRANCIS DELATORRE MD [facility] [address] [address] 0 04/24/2022 12:49:24 04/24/2022 14:34:03 Prolapse of female genital organs 18638384 N81.9 follow-up 6 months For pessary removal and cleaned Chronic in fective cystitis 895714863 N30.20 Continue doxycyclin e daily at bedtime [id number] FRANCIS DELATORRE MD [facility] [address] [address] 0 11/06/2022 14:05:05 11/06/2022 15:20:32 Prolapse of female genital organs 17579912 N81.9 follow-up 6 months For pessary removal and cleaned Chronic in fective cystitis 065547050 N30.20 Continue doxycyclin e daily at bedtime [id number] FRANCIS DELATORRE MD [facility] [address] [address] 0 05/12/2023 11:33:27 05/12/2023 16:33:22 Prolapse of female genital organs 74627624 N81.9 follow-up 6 months For pessary removal and cleaned Chronic in fective cystitis 507361336 N30.20 Continue doxycyclin e daily at bedtime [id number] FRANCIS DELATORRE MD [facility] [address] [address] 0 11/12/2023 14:04:56 11/12/2023 15:04:18 Prolapse of female genital organs 72026754 N81.9 follow-up 6 months For pessary removal and cleaned Chronic in fective cystitis 627640616 N30.20 Continue doxycyclin e daily at bedtime [id number] FRANCIS DELATORRE MD [facility] [address] [address] 0 05/12/2024 13:43:10 05/12/2024 15:13:07 Prolapse of female genital organs 21326736 N81.9 follow-up 6 months For pessary removal and cleaned [id number] MD AARON [facility] [address] [place] [address] 11/10/2024 14:10:36 11/10/2024 15:53:58 Vaginal wall prolapse 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 [id number] MD AARON [facility]ILL[facility] [address] [place] [address] 11/24/2024 14:18:34 11/24/2024 16:13:35 Uterovaginal prolapse 20959624 N81.4 [id number] Follow-up as previously scheduled for pessary removal and cleansing. Health Concerns Section Related Observation LastModified by Organization Detai ls LastModified Time None Recorded Concern Status LastModified by Organization Details LastModified Time None Recorded Advance Directives Directive None Recorded Payers Insurance Date Sequence Insurance Name Policy Number Policy Shankar Covered Member ID Shankar Member ID Guarantor Name 11/21/2024 1 [place] Rose R Ajay [id number] Rose R Ajay 11/22/2024 2 [facility] (MEDICARE SUPPLEMENT) Rose R Ajay [id number] Rose R Ajay Notes Date Note Type Note Provider Name and Address Organization Details Recorded Time 05/12/2023 text/html Patient is here for 6-month scheduled follow-up for pessary removal and cleansing. She has had no issues. She also has previous history of chronic cystitis. She takes doxycycline intermittent for symptoms of urinary infection. Her pessary was removed and cleansed without difficulty. No evidence of vaginal pathology other than prolapse FRANCIS DELATORRE MD [address] [place], [address], [facility] 05/13/2023 22:43:16 11/12/2023 text/html Patient is here for pessary removal and cleansing. She has had no issues. She takes doxycycline nightly. She has had no symptomatic infections. Her urine today is acceptable. MD [place], [address], [facility] 11/12/2023 15:00:27 05/12/2024 text/html Patient is here patient is here for pessary removal and cleansing. She has had no issues. She has had no urinary infections. [place], [address], [facility] 05/17/2024 00:25:41 11/10/2024 text/html Patient is here for pessary removal and cleansing. She has had no symptomatic infections since her last visit in April. She remains pleased with the results of the pessary MD Ayala [place], [address], [facility] 11/11/2024 22:16:52 11/24/2024 text/html Patient was concerned that her pessary had become dislodged with vigorous water aerobics last week. She feels comfortable today. On exam her pessary seems in good position. Due to her anatomy it was very unlikely that this would pass spontaneously. She was reassured. MD Ayala [place], [address], [facility] 11/24/2024 16:09:01 OBGyn Episode No OBEpisode recorded.
== END 2025-05-20 23:59 | disposition home or self-care (01) ==
LOC: RAD 13:15
PROVIDERS: PCP Family Medicine; Visit Provider Family Medicine
DX: Z12.31 Encounter for screening mammogram for malignant neoplasm of breast (principal); R92.323 Mammographic fibroglandular density, bilateral breasts; Z80.3 Family history of malignant neoplasm of breast
CPT/HCPCS: 77063; 77067